=== PATIENT | female | born 1965 | race Caucasian/White ===

== ENCOUNTER 2018-09-25 07:41 | Emergency (ER) | payer BC, OTHER ==
[~2018-09-25] VITALS: Ht 157.5 cm; Wt 86.2 kg
--- OUTSIDE RECORDS SUMMARY | 2018-09-25 07:47 | XMS REPORT | Clinical Summary ---
Author Author Admin, E Organization [facility] Address Unknown Phone Unavailable Allergies, Adverse Reactions, Alerts Allergy Name Reaction Description Start Date Severity Status Provider ADHESIVE PAPER Critical Active Kadie Sehorn LEVAQUIN Critical Active Kaide Sehorn DEMEROL Critical Active Kadie Sehorn SULFA Critical Active Kadie Sehorn IODINE Critical Active Kadie Sehorn PENICILLIN Critical Active Kadie Sehorn Conditions or Problems Problem Name Problem Code Onset Date Status Entry Date Provider Comment Standard Description Annotate URETHRAL STENOSIS, MEATAL 598.9 Active Misael Rachel MD Urethral stricture, unspecified INCOMPLETE BLADDER EMPTYING 788.21 Active Misael Rachel MD Incomplete bladder emptying BLADDER PROLAPSE 596.9 Active Misael Rachel MD Unspecified disorder of bladder DYSURIA 788.1 Active Misael Rachel MD Dysuria HEMATURIA 599.70 Active Misael Rachel MD Hematuria, unspecified URETHRAL STENOSIS, MEATAL 598.9 Active Misael Rachel MD Urethral stricture, unspecified Medication List Medication Instructions Start Date Stop Date Generic Name NDC Status Provider Patient Instruction UNITHROID 75 MCG ORAL TABS 1/2 tab daily LEVOTHYROXINE SODIUM 03590177459 Active Misael Rachel MD Active MACROBID 100 MG ORAL CAPS 1 tab BID NITROFURANTOIN MONOHYD MACRO 88008419960 Active Misael Rachel MD Active ESTRACE 0.1 MG/GM CREA use as directed ESTRADIOL 32237975100 No Longer Active Misael Rachel MD Active PYRIDIUM 200 MG TAB 1 tablet every 8 hours as needed PHENAZOPYRIDINE HCL 44682804078 No Longer Active Misael Rachel MD Active ALPRAZOLAM 1 MG TABS 1/2 tab bid ALPRAZOLAM 61600389348 No Longer Active Misael Rachel MD Active PROPRANOLOL HCL 10 MG TABS bid PROPRANOLOL HCL 88102013722 Active Kadie Valadez Active ALPRAZOLAM 1 MG TABS 1/2 tab bid ALPRAZOLAM 1 MG TABS 810733 ALPRAZOLAM Inactive PYRIDIUM 200 MG TAB 1 tablet every 8 hours as needed PYRIDIUM 200 MG TAB 9652520 PHENAZOPYRIDINE HCL Inactive ESTRACE 0.1 MG/GM CREA use as directed ESTRACE 0.1 MG/GM CREA ESTRADIOL Inactive Advance Directives Directive Description Start Date PERMISSION TO SHARE Vital Signs Date Name Value Unit Range Description blood pressure, diastolic 60 mm[Hg] BP dal[place] blood pressure, systolic 130 mm[Hg] BP sys pulse rate E&M 72 /min Heart rate temperature E&M 99.5 [degF] Body temperature weight E&M 177 [lb_av] Weight Measured blood pressure, diastolic 80 mm[Hg] BP [place] blood pressure, systolic 110 mm[Hg] BP sys pulse rate E&M 85 /min Heart rate temperature E&M 99.2 [degF] Body temperature weight E&M 173 [lb_av] Weight Measured Diagnostic Results Date Name Value Unit Range Description Office Visit: Follow up urethral stenosis - Chemistry RBC, urine, dipstick negative protein, total urine random negative mg/dL Office Visit: Follow up urethral stenosis - Urinalysis pH, urine, semiquantitative 5 specific gravity, urine 1.005 urinalysis, routine Clean Catch culture status No ketones, urine, by test strip negative bilirubin, urine negative glucose, urine, semiquantitative negative urine color yellow appearance, urine clear leukocyte esterase, urine, by dipstick negative nitrite, urine, semiquantitative negative urobilinogen, urine, semiquantitative (dipstick) negative protein, urine, semiquantitative (dipstick) negative Encounters Code Encounter Date Provider Facility CPT-17449 Level 3 Est. Patient 13:33:05 CDT Misael Rachel MD [facility] CPT-89680 Level 3 Est. Patient 16:26:05 CDT Misael Rachel MD [facility] [place] CPT-37606 Level 3 Est. Patient 10:48:22 CDT Misael Rachel MD [facility] CPT-04205 Level 3 Est. Patient 15:30:36 CDT Misael Rachel MD 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
--- OUTSIDE RECORDS SUMMARY | 2018-09-25 07:47 | XMS REPORT | Clinical Summary ---
Author Author Admin, E Organization [facility] Address Unknown Phone Unavailable Allergies, Adverse Reactions, Alerts Allergy Name Reaction Description Start Date Severity Status Provider ADHESIVE PAPER Critical Active Kadie Sehorn LEVAQUIN Critical Active Kadie Sehorn DEMEROL Critical Active Kadie Sehorn SULFA [...] ORAL TABS 1/2 tab daily LEVOTHYROXINE SODIUM 14428468027 Active Misael Rachel MD Active MACROBID 100 MG ORAL CAPS 1 tab BID NITROFURANTOIN MONOHYD MACRO 98932419511 Active Misael Rachel MD Active ESTRACE 0.1 MG/GM CREA use as directed ESTRADIOL 41921141912 No Longer Active Misael Rachel MD Active PYRIDIUM 200 MG TAB 1 tablet every 8 hours as needed PHENAZOPYRIDINE HCL 35877072697 No Longer Active Misael Rachel MD Active ALPRAZOLAM 1 MG TABS 1/2 tab bid ALPRAZOLAM 95152042890 No Longer Active Misael Rachel MD Active PROPRANOLOL HCL 10 MG TABS bid PROPRANOLOL HCL 17774337125 Active Kadie Valadez Active ALPRAZOLAM 1 MG TABS 1/2 tab bid ALPRAZOLAM 1 MG TABS 424775 ALPRAZOLAM Inactive PYRIDIUM 200 MG TAB 1 tablet every 8 hours as needed PYRIDIUM 200 MG TAB 2608470 PHENAZOPYRIDINE HCL Inactive ESTRACE 0.1 MG/GM CREA [...] negative Encounters Code Encounter Date Provider Facility CPT-24669 Level 3 Est. Patient 13:33:05 CDT Misael Rachel MD [facility] CPT-04881 Level 3 Est. Patient 16:26:05 CDT Misael Rachel MD [facility] [place] CPT-77652 Level 3 Est. Patient 10:48:22 CDT Misael Rachel MD [facility] CPT-10101 Level 3 Est. 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
--- OUTSIDE RECORDS SUMMARY | 2018-09-25 07:47 | XMS REPORT | Clinical Summary ---
Author Author Admin, DAVID Organization [facility] Address Unknown Phone Unavailable Allergies, Adverse Reactions, [...] Generic Name NDC Status Provider Patient Instruction ESTRACE 0.1 MG/GM CREA use as directed ESTRADIOL 44882685481 No Longer Active Misael Rachel MD Active PYRIDIUM 200 MG TAB 1 tablet every 8 hours as needed PHENAZOPYRIDINE HCL 70428418302 No Longer Active Misael Rachel MD Active ALPRAZOLAM 1 MG TABS 1/2 tab bid ALPRAZOLAM 75437580231 No Longer Active Misael Rachel MD Active PROPRANOLOL HCL 10 MG TABS bid PROPRANOLOL HCL 49374282439 Active Kadie Mejiajuanita Active ALPRAZOLAM 1 MG TABS 1/2 tab bid ALPRAZOLAM 1 MG TABS 712393 ALPRAZOLAM Inactive PYRIDIUM 200 MG TAB 1 tablet every 8 hours as needed PYRIDIUM 200 MG TAB 9651173 PHENAZOPYRIDINE HCL Inactive ESTRACE 0.1 MG/GM CREA use as directed ESTRACE 0.1 MG/GM CREA ESTRADIOL Inactive Advance Directives Directive Description Start Date PERMISSION TO SHARE Vital Signs Date Name Value Unit Range Description blood pressure, diastolic - 8462-4 80 mm[Hg] BP dal[place] blood pressure, systolic - 8480-6 110 mm[Hg] BP sys pulse rate E&M - 8867-4 85 /min Heart rate temperature E&M 99.2 [degF] Body temperature weight E&M - 3141-9 173 [lb_av] Weight Measured Diagnostic Results Date [...] negative Encounters Code Encounter Date Provider Facility CPT-55913 Level 3 Est. Patient 16:26:05 CDT Misael Rachel MD [facility] [place] CPT-51301 Level 3 Est. Patient 10:48:22 CDT Misael Rachel MD [facility] CPT-60143 Level 3 Est. 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
--- OUTSIDE RECORDS SUMMARY | 2018-09-25 07:47 | XMS REPORT | Clinical Summary ---
Author Author Admin, E Organization [facility] Address Unknown Phone Unavailable Allergies, Adverse [...] ORAL TABS 1/2 tab daily LEVOTHYROXINE SODIUM 51513691455 Active Misael Rachel MD Active MACROBID 100 MG ORAL CAPS 1 tab BID NITROFURANTOIN MONOHYD MACRO 81009278794 Active Misael Rachel MD Active ESTRACE 0.1 MG/GM CREA use as directed ESTRADIOL 45802680116 No Longer Active Misael Rachel MD Active PYRIDIUM 200 MG TAB 1 tablet every 8 hours as needed PHENAZOPYRIDINE HCL 87373942021 No Longer Active Misael Rachel MD Active ALPRAZOLAM 1 MG TABS 1/2 tab bid ALPRAZOLAM 47105360851 No Longer Active Misael Rachel MD Active PROPRANOLOL HCL 10 MG TABS bid PROPRANOLOL HCL 06898195329 Active Kadie Valadez Active ALPRAZOLAM 1 MG TABS 1/2 tab bid ALPRAZOLAM 1 MG TABS 857666 ALPRAZOLAM Inactive PYRIDIUM 200 MG TAB 1 tablet every 8 hours as needed PYRIDIUM 200 MG TAB 2164500 PHENAZOPYRIDINE HCL Inactive ESTRACE 0.1 MG/GM CREA [...] negative Encounters Code Encounter Date Provider Facility CPT-27802 Level 3 Est. Patient 13:33:05 CDT Misael Rachel MD [facility] CPT-09879 Level 3 Est. Patient 16:26:05 CDT Misael Rachel MD [facility] [place] CPT-59150 Level 3 Est. Patient 10:48:22 CDT Misael Rachel MD [facility] CPT-88407 Level 3 Est. 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
--- OUTSIDE RECORDS SUMMARY | 2018-09-25 07:48 | XMS REPORT | Clinical Summary ---
Author Author Admin, DAVID [facility] Address Unknown Phone Unavailable Allergies, Adverse [...] Generic Name NDC Status Provider Patient Instruction ALPRAZOLAM 1 MG TABS 1/2 tab bid ALPRAZOLAM 73271049709 Active Kadie horn Active PROPRANOLOL HCL 10 MG TABS bid PROPRANOLOL HCL 56864436668 Active Kadie Sehorn Active PYRIDIUM 200 MG TAB 1 tablet every 8 hours as needed PHENAZOPYRIDINE HCL 28301976472 Active [place]ia MCNAIR Active ESTRACE 0.1 MG/GM CREA use as directed [facility] 13765067988 Active Gardenia Monteiro [facility] Active Advance Directives Directive Description Start Date PERMISSION TO SHARE Vital Signs Date Name Value Unit Range Description blood pressure, diastolic 63 mm[Hg] BP dal[place] blood pressure, systolic 107 mm[Hg] BP sys temperature E&M 98.7 [degF] Body temperature weight E&M 165 [lb_av] Weight Measured Encounters Code Encounter Date Provider Facility CPT-52503 Level 3 Est. Patient 10:48:22 CDT Misael Rachel MD [facility] CPT-05603 Level 3 Est. 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
--- OUTSIDE RECORDS SUMMARY | 2018-09-25 07:48 | XMS REPORT | Clinical Summary ---
Author Author Admin, DAVID Organization [facility] Address Unknown Phone Unavailable Allergies, Adverse Reactions, Alerts Allergy Name Reaction Description Start Date Severity Status Provider ADHESIVE PAPER Critical Active Kadie Sehorn LEVAQUIN Critical Active Kdaie Sehorn DEMEROL Critical Active Kadie Sehorn SULFA [...] ORAL TABS 1/2 tab daily LEVOTHYROXINE SODIUM 14917430998 Active Misael Rachel MD Active MACROBID 100 MG ORAL CAPS 1 tab BID NITROFURANTOIN MONOHYD MACRO 59469374823 Active Misael Rachel MD Active ESTRACE 0.1 MG/GM CREA use as directed ESTRADIOL 49356696927 No Longer Active Misael Rachel MD Active PYRIDIUM 200 MG TAB 1 tablet every 8 hours as needed PHENAZOPYRIDINE HCL 58203785874 No Longer Active Misael Rachel MD Active ALPRAZOLAM 1 MG TABS 1/2 tab bid ALPRAZOLAM 89464986841 No Longer Active Misael Rachel MD Active PROPRANOLOL HCL 10 MG TABS bid PROPRANOLOL HCL 47329768105 Active Kadie Valadez Active ALPRAZOLAM 1 MG TABS 1/2 tab bid ALPRAZOLAM 1 MG TABS 889074 ALPRAZOLAM Inactive PYRIDIUM 200 MG TAB 1 tablet every 8 hours as needed PYRIDIUM 200 MG TAB 7210171 PHENAZOPYRIDINE HCL Inactive ESTRACE 0.1 MG/GM CREA [...] negative Encounters Code Encounter Date Provider Facility CPT-94404 Level 3 Est. Patient 13:33:05 CDT Misael Rachel MD [facility] CPT-91972 Level 3 Est. Patient 16:26:05 CDT Misael Rachel MD [facility] [place] CPT-96519 Level 3 Est. Patient 10:48:22 CDT Misael Rachel MD [facility] CPT-41791 Level 3 Est. Patient 15:30:36 CDT Misael Rachel MD 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 Procedures Code Procedure Name Date Entry Date Standard Description CPT-41734 Dil F ureth int 13:33:05 CDT CPT-27046 Bladder Scan 13:33:05 CDT CPT-44120 Dil F ureth int 16:26:05 CDT CPT-26848 Bladder Scan 15:30:36 CDT CPT-56384 Dil F ureth int 15:30:36 CDT CPT-48416 Dil F ureth int 08:11:50 MEAT DRESSER CPT-25214 Bladder Scan 08:11:50 MEAT DRESSER
--- OUTSIDE RECORDS SUMMARY | 2018-09-25 07:48 | XMS REPORT | Clinical Summary ---
Author Author Admin, E Organization [facility] Address Unknown Phone Unavailable Allergies, Adverse Reactions, [...] ORAL TABS 1/2 tab daily LEVOTHYROXINE SODIUM 08267346846 Active Misael Rachel MD Active MACROBID 100 MG ORAL CAPS 1 tab BID NITROFURANTOIN MONOHYD MACRO 45056684853 Active Misael Rachel MD Active ESTRACE 0.1 MG/GM CREA use as directed ESTRADIOL 81341281228 No Longer Active Misael Rachel MD Active PYRIDIUM 200 MG TAB 1 tablet every 8 hours as needed PHENAZOPYRIDINE HCL 00507387558 No Longer Active Misael Rachel MD Active ALPRAZOLAM 1 MG TABS 1/2 tab bid ALPRAZOLAM 24634112243 No Longer Active Misael Rachel MD Active PROPRANOLOL HCL 10 MG TABS bid PROPRANOLOL HCL 28905659758 Active Kadie Valadez Active ALPRAZOLAM 1 MG TABS 1/2 tab bid ALPRAZOLAM 1 MG TABS 810976 ALPRAZOLAM Inactive PYRIDIUM 200 MG TAB 1 tablet every 8 hours as needed PYRIDIUM 200 MG TAB 7741015 PHENAZOPYRIDINE HCL Inactive ESTRACE 0.1 MG/GM CREA [...] negative Encounters Code Encounter Date Provider Facility CPT-68425 Level 3 Est. Patient 13:33:05 CDT Misael Rachel MD [facility] CPT-08267 Level 3 Est. Patient 16:26:05 CDT Misael Rachel MD [facility] [place] CPT-36839 Level 3 Est. Patient 10:48:22 CDT Misael Rachel MD [facility] CPT-17331 Level 3 Est. 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
--- OUTSIDE RECORDS SUMMARY | 2018-09-25 07:48 | XMS REPORT | Continuity of Care Document ---
Author Organization Unknown Address Unknown Allergies There is no data. Medications There is no data. Problems There is no data. Procedures There is no data. Results Test Result Range TSH - 07/26/18 11:15 TSH 1.65 mIU/L NRG CULTURE, THROAT - 08/08/18 17:19 CULTURE, THROAT SEE NOTE NRG Encounters ACCT No. Visit Date/Time Discharge Status Pt. Type Provider Facility Loc./Unit Complaint [id number] 05/10/2018 19:41:00 [facility] Unknown [id number] 08/08/2018 16:40:00 08/08/2018 23:59:59 [facility] Outpatient [facility], [place] [facility] [id number] 08/08/2018 16:40:00 Document Registration [id number] 07/26/2018 11:00:00 Document Registration
[2018-09-25] MEDS ORDERED: ASPIRIN 81 MG CHEW (CHILDREN'S ASA) ONE (08:01)
[2018-09-25 08:19] LABS: BASOPHILS % (AUTO) 0 % (0-10); EOSINOPHILS # (AUTO) 0.4 10^3/uL (0.0-0.3); EOSINOPHILS % (AUTO) 5 % (0-10); HEMATOCRIT 46 % (35-52); HEMOGLOBIN 15.6 G/DL (11.5-16.0); LYMPHOCYTES # (AUTO) 2.1 X 10^3 (1.0-4.0); LYMPHOCYTES % (AUTO) 26 % (12-44); MEAN CORPUSCULAR HEMOGLOBIN 31 PG (25-34); MEAN CORPUSCULAR HGB CONC 34 G/DL (32-36); MEAN CORPUSCULAR VOLUME 91 FL (80-99); MEAN PLATELET VOLUME 11.4 FL (7.4-10.4); MONOCYTES # (AUTO) 0.7 X 10^3 (0.0-1.0); MONOCYTES % (AUTO) 8 % (0-12); NEUTROPHILS # (AUTO) 4.7 X 10^3 (1.8-7.8); NEUTROPHILS % (AUTO) 60 % (42-75); PLATELET COUNT 257 10^3/uL (130-400); RED CELL DISTRIBUTION WIDTH 12.5 % (10.0-14.5); WHITE BLOOD COUNT 7.9 10^3/uL (4.3-11.0)
[2018-09-25 08:26] LABS: PROTHROMBIN TIME PATIENT 13.3 SEC (12.2-14.7)
[2018-09-25] MEDS ORDERED: morphine INJ 10 MG/ML 1ML (SYR OR VIAL) IVP STA (08:27)
[2018-09-25] MEDS ORDERED: ALPR1TAB7 (08:29)
[2018-09-25] MEDS ORDERED: LEVO75TA6 (08:29)
[2018-09-25] MEDS ORDERED: PROP10TA8 (08:29)
[2018-09-25] MEDS ORDERED: ASPIRIN 81 MG CHEW (CHILDREN'S ASA) PO ONE (08:30)
--- NOTE | 2018-09-25 08:31 | ED Chest Pain ---
General Chief Complaint: Chest Pain Stated Complaint: CHEST PAIN;NAUSEA Nursing Triage Note: C/O CHEST PAIN SINCE 0130 LAST NIGHT WITH NAUSEA Nursing Sepsis Screen: No Definite Risk Source: patient, spouse Exam Limitations: no limitations History of Present Illness Date Seen by Provider: September 25, 2018 Time Seen by Provider: 07:50 Initial Comments The patient presents to ER by private conveyance with chief complaint of chest pain waking her from sleep 1:30 AM feeling like a lightning strike starting in her left chest radiating across her chest and into her back. Both of her arms are involved. Nothing in the neck. No personal history of coronary artery disease but she has a family history of a brother who of a heart attack 52 years old and her father had heart disease at age 59. Pain is not gone away she's having nausea with no vomiting. She denies smoking or diabetes but has hypothyroidism, no cholesterol problems and takes propranolol for sinus tachycardia/blood pressure. He says that the symptoms are similar to symptoms she's had the past with her fibromyalgia and that's why she did not come in initially but when she got up this morning and started having nausea she became more concerned. Allergies and Home Medications Allergies Coded Allergies: Penicillins (Verified Allergy, Severe, anaphylaxis, 09/25/18) Sulfa (Sulfonamide Antibiotics) (Verified Allergy, Severe, anaphylaxis, 09/25/18) iodine (Verified Allergy, Severe, anaphylaxis, 09/25/18) levofloxacin (Verified Allergy, Mild, hives, 09/25/18) meperidine (Verified Allergy, Mild, hives, 09/25/18) methylprednisolone (Verified Allergy, Unknown, 09/25/18) povidone-iodine (Verified Allergy, Unknown, 09/25/18) soap (Verified Allergy, Unknown, 09/25/18) Uncoded Allergies: TAPE (Adverse Reaction, Unknown, 09/25/18) Patient Home Medication List Home Medication List Reviewed: Yes Review of Systems Review of Systems Constitutional: No chills, No fever, No malaise EENTM: No Blurred Vision, No Double Vision Respiratory: Denies Cough, Denies Shortness of Air Cardiovascular: See HPI, Chest Pain; Denies Edema, Denies Irregular Heart Rate, Denies Palpitations, Denies Syncope Gastrointestinal: Denies Abdomen Distended, Denies Abdominal Pain; Nausea Genitourinary: Denies Burning, Denies Discharge Musculoskeletal: No back pain, No joint pain Skin: No pruritus, No rash Psychiatric/Neurological: Denies Headache, Denies Numbness Past Zaocobu-Xggbqg-Qxyjjm Hx Patient Social History Alcohol Use: Denies Use Recreational Drug Use: No Smoking Status: Never a Smoker 2nd Hand Smoke Exposure: No Recent Foreign Travel: No Contact w/Someone Who Travel: No Recent Infectious Disease Expo: No Recent Hopitalizations: No Seasonal Allergies Seasonal Allergies: No Past Medical History Surgeries: Yes ("kidney stone") Gallbladder, Lumpectomy Respiratory: No Cardiac: Yes ("sinus tachacaria rate in 200s) : No Genitourinary: Yes Kidney Stones Gastrointestinal: No Musculoskeletal: Yes Fibromyalgia Endocrine: Yes Hypothyroidsim HEENT: No Cancer: No Psychosocial: Yes Anxiety Blood Disorders: No Physical Exam Vital Signs Vital Signs - First Documented 09/25/18 07:45 Temp 98.8 Pulse 88 Resp 24 B/P (MAP) 133/92 (106) Pulse Ox 95 O2 Delivery Room Air Capillary Refill : Less Than 3 Seconds Height, Weight, BMI Height: 5'2.00" Weight: 190lbs. oz. 86.658738by; BMI Method:Stated General Appearance: No Apparent Distress (smiling, cordial), WD/WN HEENT: PERRL/EOMI, Pharynx Normal, Moist Mucous Membranes Respiratory: Chest Non Tender, Lungs Clear, Normal Breath Sounds, No Accessory Muscle Use, No Respiratory Distress Cardiovascular: Regular Rate, Rhythm, Normal Peripheral Pulses Gastrointestinal: Normal Bowel Sounds, Non Tender, Soft Extremity: Normal Capillary Refill, Normal Inspection, No Pedal Edema Neurologic/Psychiatric: Alert, Oriented x3, No Motor/Sensory Deficits Skin: Normal Color, Warm/Dry Progress/Results/Core Measures Results/Orders Lab Results Laboratory Tests Test 09/25/18 07:48 09/25/18 10:20 Range/Units White Blood Count 7.9 4.3-11.0 10^3/uL Red Blood Count 4.98 4.35-5.85 10^6/uL Hemoglobin 15.6 11.5-16.0 G/DL Hematocrit 46 35-52 % Mean Corpuscular Volume 91 80-99 FL Mean Corpuscular Hemoglobin 31 25-34 PG Mean Corpuscular Hemoglobin Concent 34 32-36 G/DL Red Cell Distribution Width 12.5 10.0-14.5 % Platelet Count 257 130-400 10^3/uL Mean Platelet Volume 11.4 H 7.4-10.4 FL Neutrophils (%) (Auto) 60 42-75 % Lymphocytes (%) (Auto) 26 12-44 % Monocytes (%) (Auto) 8 0-12 % Eosinophils (%) (Auto) 5 0-10 % Basophils (%) (Auto) 0 0-10 % Neutrophils # (Auto) 4.7 1.8-7.8 X 10^3 Lymphocytes # (Auto) 2.1 1.0-4.0 X 10^3 Monocytes # (Auto) 0.7 0.0-1.0 X 10^3 Eosinophils # (Auto) 0.4 H 0.0-0.3 10^3/uL Basophils # (Auto) 0.0 0.0-0.1 10^3/uL Prothrombin Time 13.3 12.2-14.7 SEC INR Comment 1.0 0.8-1.4 Activated Partial Thromboplast Time 29 24-35 SEC Sodium Level 139 135-145 MMOL/L Potassium Level 4.3 3.6-5.0 MMOL/L Chloride Level 105 98-107 MMOL/L Carbon Dioxide Level 22 21-32 MMOL/L Anion Gap 12 5-14 MMOL/L Blood Urea Nitrogen 12 7-18 MG/DL Creatinine 0.84 0.60-1.30 MG/DL Estimat Glomerular Filtration Rate > 60 BUN/Creatinine Ratio 14 Glucose Level 112 H 70-105 MG/DL Calcium Level 9.7 8.5-10.1 MG/DL Corrected Calcium 9.5 8.5-10.1 MG/DL Magnesium Level 2.3 1.8-2.4 MG/DL Total Bilirubin 0.5 0.1-1.0 MG/DL Aspartate Amino Transf (AST/SGOT) 60 H 5-34 U/L Alanine Aminotransferase (ALT/SGPT) 99 H 0-55 U/L Alkaline Phosphatase 88 40-136 U/L Myoglobin 31.8 10.0-92.0 NG/ML Troponin I < 0.028 < 0.028 <0.028 NG/ML B-Type Natriuretic Peptide < 10.0 <100.0 PG/ML Total Protein 7.8 6.4-8.2 GM/DL Albumin 4.3 3.2-4.5 GM/DL Lipase 178 H 8-78 U/L My Orders Orders - ISACGORDON J Ekg Tracing (09/25/18 07:44) Aspirin Chewable Tablet (Baby Aspirin Ch (09/25/18 08:01) Cbc With Automated Diff (09/25/18 08:02) Magnesium (09/25/18 08:02) Chest 1 View, Ap/Pa Only (09/25/18 08:02) Cardiac Profile 1 (09/25/18 08:02) Comprehensive Metabolic Panel (09/25/18 08:02) Myoglobin Serum (09/25/18 08:02) Protime With Inr (09/25/18 08:02) Partial Thromboplastin Time (09/25/18 08:02) O2 (09/25/18 08:02) Monitor-Rhythm Ecg Trace Only (09/25/18 08:02) Lipid Panel (09/26/18 06:00) Ed Iv/Invasive Line Start (09/25/18 08:02) Lipase (09/25/18 08:02) BNP (09/25/18 08:02) Aspirin Chewable Tablet (Baby Aspirin Ch (09/25/18 08:30) Morphine Injection (Morphine Injection (09/25/18 08:27) Lidocaine 2% Viscous 15 Ml (Xylocaine Vi (09/25/18 09:30) Famotidine Tablet (Pepcid Tablet) (09/25/18 09:16) Antacid Suspension (Mylanta Suspension (09/25/18 09:30) Ekg Tracing (09/25/18 10:00) Troponin I (09/25/18 10:00) Ketorolac Injection (Toradol Injection) (09/25/18 10:15) Medications Given in ED Current Medications Medications Dose Ordered Sig/Blayne Route Start Time Stop Time Status Last Admin Dose Admin Al Hydrox/Mg Hydrox/Simethicone 30 ml ONCE ONCE PO 09/25/18 09:30 09/25/18 09:31 DC 09/25/18 09:25 30 ML Aspirin 324 mg ONCE ONCE PO 09/25/18 08:30 09/25/18 08:31 DC 09/25/18 08:10 324 MG Ketorolac Tromethamine 30 mg ONCE ONCE IVP 09/25/18 10:15 09/25/18 10:16 DC 09/25/18 10:17 30 MG Lidocaine HCl 15 ml ONCE ONCE PO 09/25/18 09:30 09/25/18 09:31 DC 09/25/18 09:25 15 ML Vital Signs/I&O 09/25/18 09/25/18 07:45 07:45 Temp 98.8 Pulse 88 Resp 24 B/P (MAP) 133/92 (106) Pulse Ox 95 O2 Delivery Room Air Blood Pressure Mean: 106 Progress Progress Note : Time: 09:18 Progress Note Mild elevation of the lipase, no tenderness in the epigastric region. She's refused nitroglycerin and morphine. We will try a GI cocktail. Initial EKG and troponin are negative. Repeat troponin and EKG at 10:00. ED ACS 11 points. Low risk by the EDACS Score. If the patient also has: (1) EKG without new ischemic changes and (2) negative initial and 2-hour troponins, then this patient is safe for discharge to early outpatient follow-up investigation (or proceed to earlier inpatient testing). If EKG with ischemic changes or positive troponin, they are not low risk and require normal risk stratification. Initial ECG Impression Date: September 25, 2018 Initial ECG Impression Time: 07:49 Initial ECG Rate: 90 Initial ECG Rhythm: Normal Sinus Initial ECG Intervals: Normal Initial ECG Impression: Normal Initial ECG Comparisson: Unchanged Comment No ST elevation or depression. Diagnostic Imaging Diagonstic Imaging: Xray Plain Films/CT/US/NM/MRI: chest (1v) Comments [facility], [place] NAME: JUD MANSFIELD I [facility] REC#: [id number] PT STATUS: REG ER : 1965 PHYSICIAN: GORDON CHAU MD ADMIT DATE: 09/25/18/ER Draft Date of Exam:09/25/18 CHEST 1 VIEW, AP/PA ONLY Indication: Chest pain Frontal chest obtained at 844 hours a.m. Heart and mediastinal silhouette are normal in appearance. The lungs are clear. There is no pneumothorax or pleural fluid. Impression: Negative chest. Dictated on workstation # [id number] Dict: 09/25/18 0854 Trans: 09/25/18 0855 [facility] [place] [id number] Interpreted by: EREN TAYLOR MD Electronically signed by: Reviewed: Reviewed by Me Departure Impression Primary Impression: Chest pain Qualified Codes: R07.9 - Chest pain, unspecified Disposition: 01 HOME, SELF-CARE Condition: Stable Departure-Patient Inst. Decision time for Depature: 11:59 Referrals: SHIMA DAVIS MD Patient Instructions: Chest Pain That Is Not Caused by the Heart (DC) Add. Discharge Instructions: Please follow-up today by calling Dr. Davis, cardiology and requesting an appointment. You may also follow-up with the quality assurance supervisor final of your choice if you are already established. Please return to the ER if you begin to have intractable pain, shortness of breath or other worrisome symptoms. All discharge instructions reviewed with patient and/or family. Voiced understanding. Copy Copies To 1: SHIMA DAVIS MD, TITUS J September 25, 2018 08:31
[2018-09-25 08:32] LABS: ALANINE AMINOTRANSFERASE 99 U/L (0-55); ALBUMIN 4.3 GM/DL (3.2-4.5); ALKALINE PHOSPHATASE 88 U/L (40-136); BILIRUBIN,TOTAL 0.5 MG/DL (0.1-1.0); BUN/CREATININE RATIO 14; CALCIUM 9.7 MG/DL (8.5-10.1); CARBON DIOXIDE 22 MMOL/L (21-32); CHLORIDE 105 MMOL/L (98-107); CREATININE SERUM 0.84 MG/DL (0.60-1.30); GFR ESTIMATED > 60; GLUCOSE 112 MG/DL (70-105); LIPASE 178 U/L (8-78); MAGNESIUM 2.3 MG/DL (1.8-2.4); POTASSIUM 4.3 MMOL/L (3.6-5.0); SODIUM 139 MMOL/L (135-145); TOTAL PROTEIN 7.8 GM/DL (6.4-8.2)
--- NOTE | 2018-09-25 08:56 | Diagnostic Imaging Report ---
Indication: Chest pain Frontal chest obtained at 844 hours a.m. Heart and mediastinal silhouette are normal in appearance. The lungs are clear. There is no pneumothorax or pleural fluid. Impression: Negative chest. Dictated by: Dictated on workstation # [id number]
[2018-09-25] MEDS ORDERED: FAMOTIDINE 20 MG (PEPCID) TABLET PO STA (09:16)
[2018-09-25] MEDS ORDERED: LIDOCAINE 2% VISCOUS 15 ML UDC PO ONE (09:30)
[2018-09-25] MEDS ORDERED: ANTACID SUSP 30 ML UDC (MYLANTA) PO ONE (09:30)
[2018-09-25] MEDS ORDERED: KETOROLAC 30 MG/ML VIAL IVP ONE (10:15)
--- NOTE | 2018-09-25 11:30 | NUR ---
NOTIFIED OF EVERYTHING BEING BACK ET DR WOULD BE IN SOON HE COULD.
[2018-09-25 12:10] VITALS: BP 131/75
== END 2018-09-25 12:08 | disposition home or self-care (01) ==
LOC: EDUNIT# 07:41 → ER 07:43
DX: R07.9 Chest pain, unspecified (principal); E03.9 Hypothyroidism, unspecified; M79.7 Fibromyalgia; F41.9 Anxiety disorder, unspecified; Z88.0 Allergy status to penicillin; Z88.2 Allergy status to sulfonamides; Z91.041 Radiographic dye allergy status; Z88.5 Allergy status to narcotic agent; Z88.8 Allergy status to other drugs, medicaments and biological substances; Z87.442 Personal history of urinary calculi
CPT/HCPCS: 36415; 71045; 80053; 83690; 83735; 83874; 83880; 84484; 85025; 85610; 85730; 93005; 93041

== ENCOUNTER → 2019-03-17 | Outpatient (CLI) | payer BC ==
[~2019-03-17] MED LIST: ALPR1TAB7; LEVO75TA6; PROP10TA8
--- NOTE | 2019-03-17 16:11 | Diagnostic Imaging Report ---
Indication: Bronchospasm PA and lateral chest Heart size and pulmonary vascularity are normal. Lungs are clear. There are no effusions or pneumothoraces. IMPRESSION: Negative chest Dictated by: Dictated on workstation # [id number]
== END ==
LOC: RAD FS 15:57
PROVIDERS: ATTEND Nurse Practitioner Family
DX: J98.01 Acute bronchospasm (principal)
CPT/HCPCS: 71046

== ENCOUNTER → 2019-05-19 | Outpatient (CLI) | payer BC ==
--- NOTE | 2019-05-19 13:45 | Diagnostic Imaging Report ---
PROCEDURE: CT chest without contrast. TECHNIQUE: Multiple contiguous axial images were obtained through the chest without the use of intravenous contrast. Auto Exposure Controls were utilized during the CT exam to meet ALARA standards for radiation dose reduction. INDICATION: Pain in the left scapula that radiates to the left ribs. COMPARISON: No prior CT chest studies are available for comparison. FINDINGS: No axillary lymphadenopathy is detected. No definite mediastinal or hilar lymphadenopathy is detected. No pericardial or pleural fluid is identified. The central airways are patent. Subpleural 4 mm micronodule in the left upper lobe is noted, image 43. Remainder of the lung yan are clear. No infiltrates are detected. Evaluation of the bony structures does show a healing fracture involving the left lateral sixth rib. There is some callus formation present. Fracture line does remain partly visible. No other rib fractures are seen. The scapula appears to be intact. Spine demonstrates multilevel degenerative change but no acute fracture. The upper abdomen does demonstrate diffuse low density throughout the liver consistent with hepatic steatosis. The gallbladder is surgically absent. IMPRESSION: 1. Healing left lateral sixth rib fracture. 2. Hepatic steatosis. 3. No other significant abnormality is detected. Dictated by: Dictated on workstation # [id number]
== END ==
LOC: RAD FS 13:12
PROVIDERS: ATTEND Nurse Practitioner Family
DX: S22.32XD Fracture of one rib, left side, subsequent encounter for fracture with routine healing (principal); K76.0 Fatty (change of) liver, not elsewhere classified; X58.XXXD Exposure to other specified factors, subsequent encounter
CPT/HCPCS: 71250

== ENCOUNTER → 2020-01-27 | Outpatient (CLI) | payer BC ==
--- NOTE | 2020-01-27 10:03 | Diagnostic Imaging Report ---
HISTORY: History of left-sided broken rib with persistent pain. COMPARISON: 03/17/2019 TECHNIQUE: 2 views of the left ribs. FINDINGS: No displaced rib fractures are seen. The previously seen healing left 6th rib fracture is not evident radiographically. No new fractures are seen. The left lung is clear. IMPRESSION: 1. No acute displaced left rib fractures are seen. Dictated by: Dictated on workstation # [id number]
== END ==
LOC: RAD FS 09:02
PROVIDERS: ATTEND Nurse Practitioner Family
DX: R07.89 Other chest pain (principal); R07.81 Pleurodynia; Z87.81 Personal history of (healed) traumatic fracture
CPT/HCPCS: 71100

== ENCOUNTER 2020-08-06 14:07 | Emergency (ER) | payer BC ==
[~2020-08-06] VITALS: Ht 157.4 cm; Wt 90.0 kg
[2020-08-06] MEDS ORDERED: LACTATED RINGERS 1,000 ML IV STA (14:40)
[2020-08-06 14:49] LABS: HEMATOCRIT 43 % (35-52); HEMOGLOBIN 14.8 G/DL (11.5-16.0); LYMPHOCYTES % (AUTO) 21 % (12-44); MEAN CORPUSCULAR HEMOGLOBIN 32 PG (25-34); MEAN CORPUSCULAR HGB CONC 34 G/DL (32-36); MEAN CORPUSCULAR VOLUME 93 FL (80-99); MEAN PLATELET VOLUME 10.6 FL (7.4-10.4); MONOCYTES % (AUTO) 9 % (0-12); NEUTROPHILS % (AUTO) 69 % (42-75); PLATELET COUNT 164 10^3/uL (130-400); WHITE BLOOD COUNT 4.9 10^3/uL (4.3-11.0)
[2020-08-06 14:50] LABS: BASOPHILS % (AUTO) 0 % (0-10); EOSINOPHILS % (AUTO) 1 % (0-10); MONOCYTES # (AUTO) 0.4 X 10^3 (0.0-1.0); NEUTROPHILS # (AUTO) 3.4 X 10^3 (1.8-7.8)
[2020-08-06 14:57] LABS: CLARITY,URINE CLOUDY; COLOR,URINE YELLOW; GLUCOSE, URINE (UA) NEGATIVE (NEGATIVE); PROTEIN,URINE NEGATIVE (NEGATIVE)
[2020-08-06 14:58] LABS: BACTERIA,URINE TRACE /HPF; BILIRUBIN,URINE NEGATIVE (NEGATIVE); KETONES,URINE NEGATIVE (NEGATIVE); LEUKOCYTE ESTERASE ,URINE 3+ (NEGATIVE); NITRITE,URINE NEGATIVE (NEGATIVE); RBC,URINE 0-2 /HPF; WBC,URINE >100 /HPF
--- NOTE | 2020-08-06 15:05 | ED General ---
General Chief Complaint: - Urinary Stated Complaint: FEVER; URINARY PAIN; COVID+ Nursing Triage Note: Patient presents to the ED with c/o of fever and urinary pain. She reports she started having flu like symptoms last and tested positive for COVID on Sunday. She states that she has been unable to keep her fever down and reports it at 102 degrees. She report that the burning with urination began yesterday. Nursing Sepsis Screen: Possible Severe Sepsis Risk Source of Information: Patient Exam Limitations: No Limitations History of Present Illness Date Seen by Provider: Aug 06, 2020 Time Seen by Provider: 14:41 Initial Comments Here with report of persistent fever and now with dysuria. Patient has COVID-19 and has tested positive on Sunday of this week with symptoms starting Sunday of last week. also Covid positive. Complains of ear fullness. Concerned that she may be dehydrated and that is why her urination is less. Does have history of urinary tract infections though. Urinary problems worse since yesterday. Denies nausea or vomiting. Timing/Duration: 1 Week, Getting Worse Severity: Moderate Associated Systoms: No Chest Pain; Cough, Fever/Chills; No Nausea/Vomiting, No Shortness of Air, No Weakness Allergies and Home Medications Allergies Coded Allergies: Penicillins (Verified Allergy, Severe, anaphylaxis, 09/25/18) Sulfa (Sulfonamide Antibiotics) (Verified Allergy, Severe, anaphylaxis, 09/25/18) iodine (Verified Allergy, Severe, anaphylaxis, 09/25/18) levofloxacin (Verified Allergy, Mild, hives, 09/25/18) meperidine (Verified Allergy, Mild, hives, 09/25/18) methylprednisolone (Verified Allergy, Unknown, 09/25/18) povidone-iodine (Verified Allergy, Unknown, 09/25/18) soap (Verified Allergy, Unknown, 09/25/18) Uncoded Allergies: TAPE (Adverse Reaction, Unknown, 09/25/18) Patient Home Medication List Home Medication List Reviewed: Yes Review of Systems Review of Systems Constitutional: see HPI, chills, fever Respiratory: cough; No short of breath Cardiovascular: no symptoms reported Gastrointestinal: no symptoms reported Musculoskeletal: no symptoms reported, muscle pain; No muscle weakness Skin: no symptoms reported Psychiatric/Neurological: Denies Headache, Denies Weakness All Other Systems Reviewed Negative Unless Noted: Yes Past Vropgan-Ayomaq-Vwepbw Hx Past Med/Social Hx: Reviewed Nursing Past Med/Soc Hx Patient Social History Alcohol Use: Denies Use Smoking Status: Never a Smoker 2nd Hand Smoke Exposure: No Recent Infectious Disease Expo: Yes (COVID +) Recent Hopitalizations: No Seasonal Allergies Seasonal Allergies: No Past Medical History Surgeries: Yes ("kidney stone") Gallbladder, Lumpectomy Respiratory: No Cardiac: Yes ("sinus tachacardia rate in 200s) Genitourinary: Yes Kidney Stones Gastrointestinal: No Musculoskeletal: Yes Fibromyalgia Endocrine: Yes Hypothyroidsim HEENT: No Cancer: No Psychosocial: Yes Anxiety Integumentary: No Blood Disorders: No Family Medical History Reviewed Nursing Family Hx No Pertinent Family Hx Physical Exam Vital Signs Vital Signs - First Documented 08/06/20 14:10 Temp 37.3 Pulse 102 Resp 16 B/P (MAP) 122/71 (88) Pulse Ox 95 O2 Delivery Room Air Capillary Refill : Less Than 3 Seconds Height, Weight, BMI Height: 5'2.00" Weight: 190lbs. oz. 86.067076ve; 36.00 BMI Method:Stated General Appearance: No Apparent Distress, WD/WN HEENT: PERRL/EOMI, Pharynx Normal, TM Abnormal (L) (Bulging TM without loss of landmarks), TM Abnormal (R) (Bulging TM without loss of landmarks) Neck: Non Tender, Supple Respiratory: Lungs Clear, Normal Breath Sounds Cardiovascular: No Murmur, Tachycardia Gastrointestinal: Non Tender, Soft Back: Normal Inspection, No CVA Tenderness, No Vertebral Tenderness Extremity: Normal Range of Motion, Non Tender, No Calf Tenderness Neurologic/Psychiatric: Alert, Oriented x3 Skin: Normal Color, Warm/Dry Progress/Results/Core Measures Suspected Sepsis Recent Fever Within 48 Hours: Yes Infection Criteria Present: Documented Infection New/Unexplained Altered Menta: No Sepsis Screen: Possible Severe Sepsis Risk SIRS Temperature: Pulse: 102 Respiratory Rate: 16 Laboratory Tests 08/06/20 14:39: White Blood Count 4.9 Blood Pressure 122 /71 Mean: 88 Laboratory Tests 08/06/20 14:39: Creatinine 0.76, Platelet Count 164, Total Bilirubin 0.2 Results/Orders Lab Results Laboratory Tests Test 08/06/20 14:30 08/06/20 14:39 Range/Units Urine Color YELLOW Urine Clarity CLOUDY Urine pH 6.0 5-9 Urine Specific [place] 1.010 L 1.016-1.022 Urine Protein NEGATIVE NEGATIVE Urine Glucose (UA) NEGATIVE NEGATIVE Urine Ketones NEGATIVE NEGATIVE Urine Nitrite NEGATIVE NEGATIVE Urine Bilirubin NEGATIVE NEGATIVE Urine Urobilinogen 0.2 < = 1.0 MG/DL Urine Leukocyte Esterase 3+ H NEGATIVE Urine RBC (Auto) 2+ H NEGATIVE Urine RBC 0-2 /HPF Urine WBC >100 H /HPF Urine Squamous Epithelial Cells 10-25 H /HPF Urine Renal Epithelial Cells 2-5 /HPF Urine Crystals NONE /LPF Urine Bacteria TRACE /HPF Urine Casts NONE /LPF Urine Mucus NEGATIVE /LPF Urine Culture Indicated YES White Blood Count 4.9 4.3-11.0 10^3/uL Red Blood Count 4.66 4.35-5.85 10^6/uL Hemoglobin 14.8 11.5-16.0 G/DL Hematocrit 43 35-52 % Mean Corpuscular Volume 93 80-99 FL Mean Corpuscular Hemoglobin 32 25-34 PG Mean Corpuscular Hemoglobin Concent 34 32-36 G/DL Red Cell Distribution Width 12.9 10.0-14.5 % Platelet Count 164 130-400 10^3/uL Mean Platelet Volume 10.6 H 7.4-10.4 FL Immature Granulocyte % (Auto) 0 % Neutrophils (%) (Auto) 69 42-75 % Lymphocytes (%) (Auto) 21 12-44 % Monocytes (%) (Auto) 9 0-12 % Eosinophils (%) (Auto) 1 0-10 % Basophils (%) (Auto) 0 0-10 % Neutrophils # (Auto) 3.4 1.8-7.8 X 10^3 Lymphocytes # (Auto) 1.0 1.0-4.0 X 10^3 Monocytes # (Auto) 0.4 0.0-1.0 X 10^3 Eosinophils # (Auto) 0.0 0.0-0.3 10^3/uL Basophils # (Auto) 0.0 0.0-0.1 10^3/uL Immature Granulocyte # (Auto) 0.0 0.0-0.1 10^3/uL Sodium Level 132 L 135-145 MMOL/L Potassium Level 4.3 3.6-5.0 MMOL/L Chloride Level 100 98-107 MMOL/L Carbon Dioxide Level 24 21-32 MMOL/L Anion Gap 8 5-14 MMOL/L Blood Urea Nitrogen 8 7-18 MG/DL Creatinine 0.76 0.60-1.30 MG/DL Estimat Glomerular Filtration Rate > 60 BUN/Creatinine Ratio 11 Glucose Level 120 H 70-105 MG/DL Calcium Level 8.5 8.5-10.1 MG/DL Corrected Calcium 8.7 8.5-10.1 MG/DL Total Bilirubin 0.2 0.1-1.0 MG/DL Aspartate Amino Transf (AST/SGOT) 70 H 5-34 U/L Alanine Aminotransferase (ALT/SGPT) 80 H 0-55 U/L Alkaline Phosphatase 132 40-136 U/L C-Reactive Protein 3.51 H <0.50 MG/DL Total Protein 7.1 6.4-8.2 GM/DL Albumin 3.7 3.2-4.5 GM/DL My Orders Orders - MIKAELA MARTIN MD Cbc With Automated Diff (08/06/20 14:40) Comprehensive Metabolic Panel (08/06/20 14:40) Ua Culture If Indicated (08/06/20 14:40) Crp Fs (08/06/20 14:40) Lactated Ringers (Lr 1000 Ml Iv Solution (08/06/20 14:40) Ed Iv/Invasive Line Start (08/06/20 14:40) Urine Culture (08/06/20 14:30) Vital Signs/I&O 08/06/20 14:10 Temp 37.3 Pulse 102 Resp 16 B/P (MAP) 122/71 (88) Pulse Ox 95 O2 Delivery Room Air Capillary Refill : Less Than 3 Seconds Blood Pressure Mean: 88 Progress Note : Progress Note Seen and evaluated. IV, labs, UA, LR 1 L bolus ordered. Monitor patient. 1615: Overall feeling a little better. UA may have contamination but we will treat based on symptoms and history. States usually Macrobid works and we will do that for 3 days. Patient feels like she can tolerate okay at home. Discharged home with return precautions. Patient verbalized understanding of instructions and agreement with plan. Departure Impression Primary Impression: COVID-19 virus infection Additional Impressions: Urinary tract infection Qualified Codes: N30.00 - Acute cystitis without hematuria Dehydration Disposition: HOME, SELF-CARE Condition: Stable Departure-Patient Inst. Decision time for Depature: 16:10 Referrals: ANTOINETTE MESSINA APRN (PCP) Primary Care Physician [facility] (Family) Primary Care Physician Patient Instructions: Urinary Tract Infection, Adult (DC), Coronavirus Disease 2019 (COVID-19) (DC) Add. Discharge Instructions: All discharge instructions reviewed with patient and/or family. Voiced understanding. Take medications as directed. Follow-up with your doctor in a few days for recheck. Drink plenty of fluids. You may take Tylenol/acetaminophen 1000 mg every 6 hours as needed for fever or pain. You may take ibuprofen up to 600 mg every 8 hours as needed for fever or pain. Eat a diet as tolerated. Return for worse pain, oxygen saturations less than 90% while resting, breathing problems, weakness, vomiting or other concerns as needed. Scripts Nitrofurantoin Macrocrystal (Nitrofurantoin) 100 Mg Capsule 100 MG PO BID, #6 CAP 0 Refills Prov: MIKAELA MARTIN MD 08/06/20 Copy Copies To 1: KENYATTA LNI TIMOTHY D MD Aug 06, 2020 15:04
[2020-08-06 15:10] LABS: ALANINE AMINOTRANSFERASE 80 U/L (0-55); ALKALINE PHOSPHATASE 132 U/L (40-136); BILIRUBIN,TOTAL 0.2 MG/DL (0.1-1.0); BUN/CREATININE RATIO 11; CALCIUM 8.5 MG/DL (8.5-10.1); CARBON DIOXIDE 24 MMOL/L (21-32); CHLORIDE 100 MMOL/L (98-107); CREATININE SERUM 0.76 MG/DL (0.60-1.30); GFR ESTIMATED > 60; GLUCOSE 120 MG/DL (70-105); POTASSIUM 4.3 MMOL/L (3.6-5.0); SODIUM 132 MMOL/L (135-145); TOTAL PROTEIN 7.1 GM/DL (6.4-8.2)
[2020-08-06 15:11] LABS: ALBUMIN 3.7 GM/DL (3.2-4.5)
[2020-08-06] MEDS ORDERED: NITR100C PO (16:18)
[2020-08-06 16:51] VITALS: BP 126/67
== END 2020-08-06 16:50 | disposition home or self-care (01) ==
LOC: EDUNIT# 14:07 → ER FS 14:09
DX: U07.1 COVID-19 (principal); N30.00 Acute cystitis without hematuria; E86.0 Dehydration; Z73.0 Burn-out; Z88.0 Allergy status to penicillin; Z88.1 Allergy status to other antibiotic agents; Z88.2 Allergy status to sulfonamides; Z88.5 Allergy status to narcotic agent; Z88.8 Allergy status to other drugs, medicaments and biological substances; Z91.048 Other nonmedicinal substance allergy status
CPT/HCPCS: 36415; 80053; 81000; 85025; 86141; 87077; 87088

== ENCOUNTER 2020-08-08 15:36 | Inpatient (IN) | payer BC ==
[~2020-08-08] VITALS: Ht 154.9 cm; Wt 91.3 kg
[~2020-08-08 15:36] MED LIST changes: +NITR100C PO
[2020-08-08] MEDS ORDERED: LACTATED RINGERS 1,000 ML IV ONE ×2 (16:00→18:26)
[2020-08-08] MEDS ORDERED: KETOROLAC 30 MG/ML VIAL IVP ONE (16:00)
[2020-08-08 16:04] LABS: ABG BASE EXCESS 0.9 MMOL/L (-2.5-2.5); ABG OXYGEN SATURATION 96 % (94-100); ABG PCO2 41 MMHG (35-45); ABG PO2 92 MMHG (79-93); ABG TCO2 26.2 MMOL/L (21.0-31.0)
[2020-08-08] MEDS ORDERED: FLUT16SP22 NSEACH (16:04)
[2020-08-08] MEDS ORDERED: DOXY100C2 PO (16:04)
[2020-08-08 16:05] LABS: ALLENS TEST YES-POS; INSPIRED O2 2L; PATIENT TEMP 100.2; VENTILATOR NO
--- NOTE | 2020-08-08 16:07 | ED Respiratory ---
General Chief Complaint: Respiratory Problems Stated Complaint: COVID POSITIVE/PNA/SOB Nursing Triage Note: ARRIVED VIA WC TO ROOM 09 IN [facility] [place]. STATES SHE IS DAY 10 OF BEING COVID POSITIVE. HAS BEEN RUUNING A HIGH FEVER WITH N/V. ALSO HAS BEEN BLOWING BLOOD FROM HER NOSE. WAS SEEN AT URGENT CARE TODAY AND GIVEN A ABX FOR A SINUS INFECTION. Source: patient Exam Limitations: no limitations History of Present Illness Date Seen by Provider: Aug 08, 2020 Time Seen by Provider: 15:45 Initial Comments The patient presents ER by private conveyance from home with chief complaint of nausea for the past 2 days inability to keep fluids and food down. She is also having some shortness of air and today went to urgent care and was diagnosed with a sinus infection and given a prescription for doxycycline. She took 1 tablet and vomited up. She was diagnosed last Sunday about 10 days ago with COVID-19 from an outside source. Her had a before her and had very minor symptoms. She was seen at the ER in [place] and at the time was not requiring oxygen and told to follow-up here if she got worse. She has no history of lung disease, COPD, smoking etc. She has been having some low-grade fevers and unable to treat them with Tylenol Motrin today because of her nausea. She feels dehydrated. She denies dysuria or chest pain. She is having some mild shortness of air. She does not require oxygen at baseline. Allergies and Home Medications Allergies Coded Allergies: Penicillins (Verified Allergy, Severe, anaphylaxis, 09/25/18) Sulfa (Sulfonamide Antibiotics) (Verified Allergy, Severe, anaphylaxis, 09/25/18) amoxicillin (Verified Allergy, Severe, FACIAL SWELLING, 08/08/20) clavulanic acid (Verified Allergy, Severe, FACIAL SWELLING, 08/08/20) iodine (Verified Allergy, Severe, anaphylaxis, 09/25/18) levofloxacin (Verified Allergy, Mild, hives, 09/25/18) meperidine (Verified Allergy, Mild, hives, 09/25/18) methylprednisolone (Verified Allergy, Unknown, 09/25/18) povidone-iodine (Verified Allergy, Unknown, 09/25/18) soap (Verified Allergy, Unknown, 09/25/18) Uncoded Allergies: TAPE (Adverse Reaction, Unknown, 09/25/18) Home Medications Nitrofurantoin Macrocrystal 100 Mg Capsule, 100 MG PO BID Prescribed by: MIKAELA MARTIN on 08/06/20 1618 Patient Home Medication List Home Medication List Reviewed: Yes Review of Systems Review of Systems Constitutional: chills, fever, malaise EENTM: No ear pain, No eye pain Respiratory: No cough, No short of breath Cardiovascular: No edema, No vascular heart diseas Gastrointestinal: No abdominal pain, No constipation; nausea, vomiting Genitourinary: No discharge, No dysuria Musculoskeletal: No back pain, No joint pain All Other Systems Reviewed Negative Unless Noted: Yes Past Ehshxat-Gtjrgp-Vagfal Hx Patient Social History Alcohol Use: Denies Use Smoking Status: Never a Smoker 2nd Hand Smoke Exposure: No Recent Infectious Disease Expo: No Recent Hopitalizations: No Seasonal Allergies Seasonal Allergies: No Past Medical History Surgeries: Yes ("kidney stone") Gallbladder, Lumpectomy Respiratory: No Cardiac: Yes ("sinus tachacardia rate in 200s) Genitourinary: Yes Kidney Stones Gastrointestinal: No Musculoskeletal: Yes Fibromyalgia Endocrine: Yes Hypothyroidsim HEENT: No Cancer: No Psychosocial: Yes Anxiety Integumentary: No Blood Disorders: No Family Medical History No Pertinent Family Hx Physical Exam Vital Signs - First Documented 08/08/20 15:38 Temp 37.9 Pulse 99 Resp 20 B/P (MAP) 122/64 (83) Pulse Ox 88 O2 Delivery Nasal Cannula O2 Flow Rate 1.00 Capillary Refill : Less Than 3 Seconds Height: 5'2.00" Weight: 190lbs. oz. 86.544444ot; 25.00 BMI Method:Stated General Appearance: WD/WN, moderate distress Eyes: Bilateral Eye Normal Inspection, Bilateral Eye PERRL, Bilateral Eye EOMI HEENT: PERRL/EOMI, TMs normal, pharyngeal erythema, other (Maxillary and frontal sinuses bilaterally tender to palpation with some thick nasal discharge) Neck: non-tender, full range of motion, supple, normal inspection Respiratory: lungs clear, normal breath sounds, no respiratory distress, no accessory muscle use Cardiovascular: normal peripheral pulses, regular rate, rhythm Gastrointestinal: normal bowel sounds, non tender, soft Extremities: normal range of motion, non-tender, no pedal edema, normal capil libby refill Neurologic/Psychiatric: alert, normal mood/affect, oriented x 3 Skin: normal color, warm/dry Focused Exam Lactate Level 08/08/20 15:50: Lactic Acid Level 1.16 Lactic Acid Level Laboratory Tests Test 08/08/20 15:50 Lactic Acid Level 1.16 MMOL/L (0.50-2.00) Progress/Results/Core Measures Suspected Sepsis Recent Fever Within 48 Hours: Yes Infection Criteria Present: Documented Infection New/Unexplained Altered Menta: No Sepsis Screen: Possible Severe Sepsis Risk SIRS Temperature: Pulse: 99 Respiratory Rate: 20 Laboratory Tests 08/08/20 15:50: White Blood Count 5.8 Blood Pressure 122 /64 Mean: 83 08/08/20 15:50: Lactic Acid Level 1.16 Laboratory Tests 08/08/20 15:50: Creatinine 0.79, INR Comment 1.0, Platelet Count 165, Total Bilirubin 0.5 Results/Orders Lab Results Laboratory Tests Test 08/08/20 15:50 08/08/20 15:55 Range/Units White Blood Count 5.8 4.3-11.0 10^3/uL Red Blood Count 4.68 3.80-5.11 10^6/uL Hemoglobin 14.6 11.5-16.0 g/dL Hematocrit 44 35-52 % Mean Corpuscular Volume 94 80-99 fL Mean Corpuscular Hemoglobin 31 25-34 pg Mean Corpuscular Hemoglobin Concent 33 32-36 g/dL Red Cell Distribution Width 13.0 10.0-14.5 % Platelet Count 165 130-400 10^3/uL Mean Platelet Volume 11.2 9.0-12.2 fL Immature Granulocyte % (Auto) 0 % Neutrophils (%) (Auto) 72 42-75 % Lymphocytes (%) (Auto) 20 12-44 % Monocytes (%) (Auto) 8 0-12 % Eosinophils (%) (Auto) 0 0-10 % Basophils (%) (Auto) 0 0-10 % Neutrophils # (Auto) 4.2 1.8-7.8 10^3/uL Lymphocytes # (Auto) 1.1 1.0-4.0 10^3/uL Monocytes # (Auto) 0.4 0.0-1.0 10^3/uL Eosinophils # (Auto) 0.0 0.0-0.3 10^3/uL Basophils # (Auto) 0.0 0.0-0.1 10^3/uL Immature Granulocyte # (Auto) 0.0 0.0-0.1 10^3/uL Prothrombin Time 13.4 12.2-14.7 SEC INR Comment 1.0 0.8-1.4 Activated Partial Thromboplast Time 36 H 24-35 SEC Sodium Level 134 L 135-145 MMOL/L Potassium Level 4.2 3.6-5.0 MMOL/L Chloride Level 99 98-107 MMOL/L Carbon Dioxide Level 23 21-32 MMOL/L Anion Gap 12 5-14 MMOL/L Blood Urea Nitrogen 6 L 7-18 MG/DL Creatinine 0.79 0.60-1.30 MG/DL Estimat Glomerular Filtration Rate > 60 BUN/Creatinine Ratio 8 Glucose Level 106 H 70-105 MG/DL Lactic Acid Level 1.16 0.50-2.00 MMOL/L Calcium Level 8.3 L 8.5-10.1 MG/DL Corrected Calcium 8.6 8.5-10.1 MG/DL Total Bilirubin 0.5 0.1-1.0 MG/DL Aspartate Amino Transf (AST/SGOT) 80 H 5-34 U/L Alanine Aminotransferase (ALT/SGPT) 73 H 0-55 U/L Alkaline Phosphatase 160 H 40-136 U/L Total Protein 7.3 6.4-8.2 GM/DL Albumin 3.6 3.2-4.5 GM/DL Blood Gas Puncture Site R RAD Blood Gas Patient Temperature 100.2 Arterial Blood pH 7.40 7.37-7.43 Arterial Blood Partial Pressure CO2 41 35-45 MMHG Arterial Blood Partial Pressure O2 92 79-93 MMHG Arterial Blood HCO3 25 23-27 MMOL/L Arterial Blood Total CO2 26.2 21.0-31.0 MMOL/L Arterial Blood Oxygen Saturation 96 94-100 % Arterial Blood Base Excess 0.9 -2.5-2.5 MMOL/L Charanjit Test YES-POS Blood Gas Ventilator Setting NO Blood Gas Inspired Oxygen 2L Micro Results Microbiology 08/08/20 Influenza Types A,B Antigen (ANTONIA) - Final, Complete My Orders Orders - GORDON CHAU Arterial Blood Gas (08/08/20 15:58) Cbc With Automated Diff (08/08/20 16:00) Comprehensive Metabolic Panel (08/08/20 16:00) Blood Culture (08/08/20 16:00) Sputum Culture (08/08/20 16:00) Urinalysis (08/08/20 16:00) Urine Culture (08/08/20 16:00) Protime With Inr (08/08/20 16:00) Partial Thromboplastin Time (08/08/20 16:00) Chest 1 View, Ap/Pa Only (08/08/20 16:00) Ed Iv/Invasive Line Start (08/08/20 16:00) Ed Iv/Invasive Line Start (08/08/20 16:00) Vital Signs Adult Sepsis Patie Q15M (08/08/20 16:00) O2 (08/08/20 16:00) Remove Rings In Anticipation O (08/08/20 16:00) Lactic Acid Analyzer (08/08/20 16:00) Influenza A And B Antigens (08/08/20 16:00) Lactated Ringers (Lr 1000 Ml Iv Solution (08/08/20 16:00) Covid-19 External Lab Results (08/08/20 16:00) Ketorolac Injection (Toradol Injection) (08/08/20 16:00) Doxycycline Injection (Vibramycin Inject (08/08/20 16:15) Dexamethasone Injection (Decadron Injec (08/08/20 17:00) Hs C Reactive Protein (08/08/20 16:52) Procalcitonin (Pct) (08/08/20 16:52) Fibrin Degradation Products (08/08/20 16:52) Medications Given in ED Current Medications Medications Dose Ordered Sig/Blayne Route Start Time Stop Time Status Last Admin Dose Admin Doxycycline Hyclate 100 mg/ Sodium Chloride 100 ml @ 100 mls/hr ONCE ONCE IV 08/08/20 16:15 08/08/20 17:14 08/08/20 16:16 100 MLS/HR Ketorolac Tromethamine 30 mg ONCE ONCE IVP 08/08/20 16:00 08/08/20 16:02 DC 08/08/20 16:09 30 MG Lactated Ringer's 1,000 ml @ 0 mls/hr Q0M ONCE IV 08/08/20 16:00 08/08/20 16:02 DC 08/08/20 16:10 1,000 MLS/HR Vital Signs/I&O 08/08/20 08/08/20 15:38 15:38 Temp 37.9 Pulse 99 Resp 20 B/P (MAP) 122/64 (83) Pulse Ox 88 88 O2 Delivery Nasal Cannula Room Air O2 Flow Rate 1.00 Capillary Refill : Less Than 3 Seconds Blood Pressure Mean: 83 Progress Note #1: Time: 16:08 Progress Note Sepsis, COVID-19, maxillary sinusitis, requiring oxygen with her oxygen sats in the upper 80s on room air so I put her on 3 L. ABG. Influenza swab. 1 L of fluids as we do not want to overload her fluids with COVID-19 and doxycycline should cover maxillary sinusitis and pneumonia given her history of multiple allergies which she states all cause her throat to swell shut. Progress Note #2: Time: 17:00 Progress Note The patient states that her allergy to methylprednisolone is that it caused hives in 1 specific spot. She says she used to get it all the time when she was in high school for allergies. Diagnostic Imaging Diagonstic Imaging: Xray Plain Films/CT/US/NM/MRI: chest Comments NAME: JUD MANSFIELD I MED REC#: [id number] PT STATUS: REG ER : 1965 PHYSICIAN: GORDON CHAU MD ADMIT DATE: 08/08/20/ER Draft Date of Exam:08/08/20 CHEST 1 VIEW, AP/PA ONLY EXAMINATION: Chest 1 view. HISTORY: Sepsis. COMPARISON: 01/27/2020. FINDINGS: There are multifocal airspace opacities in both lungs, left greater than right. Lung volumes are small. No pleural effusion is seen. No pneumothorax. Heart is normal in size. IMPRESSION: Multifocal bilateral airspace opacities, left greater than right, most consistent with a multifocal pneumonia. Dictated on workstation # [id number] Dict: 08/08/20 1646 Trans: 08/08/20 1647 [facility] [id number] Interpreted by: DENIS ADLER MD Electronically signed by: Reviewed: Reviewed by Me Departure Communication (Admissions) Time/Spoke to Admitting Phy: 17:00 Discussed the case with Dr. Carmen and she agrees to admit the patient to the floor on oxygen with doxycycline for sinusitis. Decadron and Lovenox for DVT prophylaxis Impression Primary Impression: Severe acute respiratory syndrome coronavirus 2 (SARS-CoV-2) detected Additional Impressions: Maxillary sinusitis, acute Qualified Codes: J01.00 - Acute maxillary sinusitis, unspecified Sepsis Qualified Codes: A41.9 - Sepsis, unspecified organism; R65.20 - Severe sepsis without septic shock; J96.01 - Acute respiratory failure with hypoxia Disposition: 09 ADMITTED INPATIENT Condition: Stable Admissions Decision to Admit Reason: Admit from ER (General) Decision to Admit/Date: Aug 08, 2020 Time/Decision to Admit Time: 15:56 Departure-Patient Inst. Referrals: ANTOINETTE MESSINA APRN (PCP) Primary Care Physician [facility] (Family) Primary Care Physician GORDON CHAU Aug 08, 2020 16:07
[2020-08-08 16:08] LABS: BASOPHILS % (AUTO) 0 % (0-10); EOSINOPHILS % (AUTO) 0 % (0-10); HEMATOCRIT 44 % (35-52); HEMOGLOBIN 14.6 g/dL (11.5-16.0); LYMPHOCYTES # (AUTO) 1.1 10^3/uL (1.0-4.0); LYMPHOCYTES % (AUTO) 20 % (12-44); MEAN CORPUSCULAR HEMOGLOBIN 31 pg (25-34); MEAN CORPUSCULAR HGB CONC 33 g/dL (32-36); MEAN CORPUSCULAR VOLUME 94 fL (80-99); MEAN PLATELET VOLUME 11.2 fL (9.0-12.2); MONOCYTES # (AUTO) 0.4 10^3/uL (0.0-1.0); MONOCYTES % (AUTO) 8 % (0-12); NEUTROPHILS # (AUTO) 4.2 10^3/uL (1.8-7.8); NEUTROPHILS % (AUTO) 72 % (42-75); PLATELET COUNT 165 10^3/uL (130-400); WHITE BLOOD COUNT 5.8 10^3/uL (4.3-11.0)
[2020-08-08] MEDS ORDERED: DOXYCYCLINE INJECTION 100 MG in NS (IVPB) 100 ML IV ONE (16:15)
[2020-08-08 16:24] LABS: ALANINE AMINOTRANSFERASE 73 U/L (0-55); ALBUMIN 3.6 GM/DL (3.2-4.5); ALKALINE PHOSPHATASE 160 U/L (40-136); BILIRUBIN,TOTAL 0.5 MG/DL (0.1-1.0); BUN/CREATININE RATIO 8; CALCIUM 8.3 MG/DL (8.5-10.1); CARBON DIOXIDE 23 MMOL/L (21-32); CHLORIDE 99 MMOL/L (98-107); CREATININE SERUM 0.79 MG/DL (0.60-1.30); GFR ESTIMATED > 60; GLUCOSE 106 MG/DL (70-105); POTASSIUM 4.2 MMOL/L (3.6-5.0); PROTHROMBIN TIME PATIENT 13.4 SEC (12.2-14.7); SODIUM 134 MMOL/L (135-145); TOTAL PROTEIN 7.3 GM/DL (6.4-8.2)
--- NOTE | 2020-08-08 16:48 | Diagnostic Imaging Report ---
EXAMINATION: Chest 1 view. HISTORY: Sepsis. COMPARISON: 01/27/2020. FINDINGS: There are multifocal airspace opacities in both lungs, left greater than right. Lung volumes are small. No pleural effusion is seen. No pneumothorax. Heart is normal in size. IMPRESSION: Multifocal bilateral airspace opacities, left greater than right, most consistent with a multifocal pneumonia. Dictated by: Dictated on workstation # [id number]
[2020-08-08 17:55] VITALS: BP 136/71
[2020-08-08] MEDS ORDERED: ONDANSETRON 4 MG/2 ML (SDV) Z0FRAN IVP PRN (18:15)
[2020-08-08] MEDS ORDERED: ANTACID SUSP 30 ML UDC (MYLANTA) PO PRN (18:15)
[2020-08-08 18:51] VITALS: BP 122/64
[2020-08-08] MEDS ORDERED: RT-ALBUTEROL INHALER HFA (VENTOLIN HFA) 18 GM IH PRN (19:00)
[2020-08-08] MEDS ORDERED: LACTATED RINGERS 1,000 ML IV SCH (19:30)
[2020-08-08 19:35] VITALS: BP 131/76
[2020-08-08] MEDS ORDERED: ENOXAPARIN 60 MG/0.6 ML (LOVENOX) SYR SC SCH (21:00)
[2020-08-08 23:05] VITALS: BP 109/69
[2020-08-09] VITALS (7 sets, daily range): BP systolic 101–130; BP diastolic 62–78
[2020-08-09] MEDS ORDERED: ACETAMINOPHEN 325 MG TABLET ONE (05:47)
[2020-08-09] MEDS: DOXYCYCLINE 100 MG (VIBRAMYCIN) TABLET PO SCH ×2 (06:03→16:33)
[2020-08-09] MEDS: PANTOPRAZOLE 40 MG (PROTONIX) TAB PO SCH (06:03)
[2020-08-09] MEDS: LEVOTHYROXINE 75 MCG (LEVOTHROID) TABLET PO SCH (06:03)
[2020-08-09] MEDS: ACETAMINOPHEN 325 MG TABLET PO PRN ×2 (06:03→16:33)
[2020-08-09] MEDS: ALPRAZolam 0.5 MG (XANAX) TAB PO PRN ×2 (09:27→20:14)
[2020-08-09] MEDS: ENOXAPARIN 40 MG/0.4 ML (LOVENOX) SYR SC SCH ×2 (09:27→20:14)
--- NOTE | 2020-08-09 10:06 | History & Physical-Hospitalist ---
History of Present Illness HPI/Chief Complaint CC: SOB due to Covid HPI: This is a 55yoWF clinic Pt of Katia Lee who was diagnosed with Covid ten days ago, who presented with SOB on exertion, she went to the ER at [place] on Sunday, given IV fluid and sent home, but then she worsened, went to Urgent Care and was subsequently hospitalized. Overall she feels much better, but still having some difficulty with oxygenation during exertion. I did restart her home medication of Propanolol, Xanax and Synthroid. Source: patient Exam Limitations: no limitations Date Seen 08/09/20 Time Seen by a Provider: 10:30 Attending Physician Janeth Carmen MD PCP Katia Lee Aprn Referring Physician Date of Admission Aug 08, 2020 at 17:00 Home Medications & Allergies Home Medications Reviewed patient Home Medication Reconciliation performed by pharmacy medication reconciliations customer account technician and/or nursing. Patients Allergies have been reviewed. Allergies Allergies Coded Allergies Penicillins (Verified Allergy, Severe, anaphylaxis, 09/25/18) Sulfa (Sulfonamide Antibiotics) (Verified Allergy, Severe, anaphylaxis, 09/25/18) amoxicillin (Verified Allergy, Severe, FACIAL SWELLING, 08/08/20) clavulanic acid (Verified Allergy, Severe, FACIAL SWELLING, 08/08/20) iodine (Verified Allergy, Severe, anaphylaxis, 09/25/18) levofloxacin (Verified Allergy, Mild, hives, 09/25/18) meperidine (Verified Allergy, Mild, hives, 09/25/18) methylprednisolone (Verified Allergy, Unknown, 09/25/18) povidone-iodine (Verified Allergy, Unknown, 09/25/18) soap (Verified Allergy, Unknown, 09/25/18) Uncoded Allergies TAPE ( Adverse Reaction, Unknown, 09/25/18) Patient Social History Marrital Status: Employed/Student: employed Tobacco Use?: No Smoking Status: Never a Smoker Smokeless Tobacco Frequency: Never a User Use of E-Cig and/or Vaping dev: No Substance use?: No Alcohol Use?: No Pt stated abuse/neglect: No Immunizations Up To Date Influenza Vaccine Up-to-Date: No; Not Current Tetanus Booster (TDap): More Than 5 Years Hepatitis A: No Hepatitis B: No TB Skin Test: Negative Current Status status: No Do you have an Advance Directi: No Communicates: Verbally Primary Language: Cymro Preferred Spoken Language: Cymro Is interpretation needed?: No Implanted or Applied Medical D: None Past Medical History Hypothyroidism Anxiety Insomnia Family Medical History Family Hx: HTN Review of Systems Constitutional: see HPI, malaise, weakness Respiratory: dyspnea on exertion Physical Exam Physical Exam Vital Signs Vital Signs - First Documented 08/08/20 08/08/20 15:38 18:51 Temp 37.9 Pulse 99 Resp 20 B/P (MAP) 122/64 (83) Pulse Ox 88 O2 Delivery Nasal Cannula O2 Flow Rate 1.00 FiO2 21 Capillary Refill : Less Than 3 Seconds Height, Weight, BMI Height: 5'2.00" Weight: 190lbs. oz. 86.525488xe; 37.71 BMI Method:Stated General Appearance: No Apparent Distress, Chronically ill, Obese Eyes: Right Eye Normal Inspection, Right Eye PERRL HEENT: PERRL/EOMI, Normal ENT Inspection, Pharynx Normal, Moist Mucous Membranes Neck: Full Range of Motion, Normal Inspection, Non Tender Respiratory: Chest Non Tender, Lungs Clear, No Accessory Muscle Use, No Respiratory Distress, Decreased Breath Sounds Cardiovascular: Regular Rate, Rhythm, No Edema, No Gallop, No JVD, No Murmur, Normal Peripheral Pulses Gastrointestinal: Normal Bowel Sounds, No Organomegaly, No Pulsatile Mass, Non Tender, Soft Back: Normal Inspection, No CVA Tenderness, No Vertebral Tenderness Extremity: Normal Capillary Refill, Normal Inspection, Normal Range of Motion, Non Tender, No Calf Tenderness, No Pedal Edema Neurologic/Psychiatric: Alert, Oriented x3, No Motor/Sensory Deficits, Normal Mood/Affect Skin: Normal Color, Warm/Dry Lymphatic: No Adenopathy Results Results/Procedures Labs Laboratory Tests 08/08/20 15:50 Patient resulted labs reviewed. Assessment/Plan Admission Diagnosis Assessment: COVID-19 PNA Hypoxia Hypothyroidism Anxiety Plan: O2 Supportive care Monitor closely Admission Status: Inpatient Order (span 2 midnights) Reason for Inpatient Admission: COVID-19 Supervisory-Addendum Brief Verification & Attestation Participated in pt care: history, MDM, physical Personally performed: exam, history, MDM, supervision of care Care discussed with: Medical Student Procedures: n/a Results interpretation: Verified all documentation Verification and Attestation of Medical Student E/M Service A medical student performed and documented this service in my presence. I reviewed and verified all information documented by the medical student and made modifications to such information, when appropriate. I personally performed the physical exam and medical decision making. Jessica Márquez, Aug 10, 2020,04:52 JESSICA MÁRQUEZ DO Aug 09, 2020 10:06
--- NOTE | 2020-08-09 10:15 | Diagnostic Imaging Report ---
INDICATION: COVID 19 positive. Time of exam 8:31 AM Correlation is made with prior chest one day earlier. Heart size is normal. There are patchy peripheral based pulmonary infiltrates throughout the right upper and right lower lobe. There is also some minimal infiltrates in the left mid and lower lung field consistent with COVID 19 pneumonia. No effusion is identified. There is no pneumothorax. Heart size is stable. IMPRESSION: Patchy peripheral based pulmonary infiltrates bilaterally consistent with pneumonia. Overall appearance appears stable when compared to examination one day earlier. Report was faxed to Jorge Stephen nurse Infection Control by rosario at 10:14am. Dictated by: Dictated on workstation # [id number]
[2020-08-09] MEDS ORDERED: ALPRAZolam 1 MG (XANAX) TAB PO PRN (10:45)
[2020-08-09] MEDS: PROPRANOLOL 20 MG (INDERAL) TABLET PO SCH ×2 (10:47→20:36)
[2020-08-09] MEDS ORDERED: CHOL500044 PO (10:52)
[2020-08-09] MEDS ORDERED: ALPR1TAB7 PO (10:52)
[2020-08-09] MEDS ORDERED: IBUP-2473 PO (10:52)
[2020-08-09] MEDS ORDERED: ASPI-1238 PO (10:52)
[2020-08-09] MEDS ORDERED: LORA10TA76 PO (10:52)
[2020-08-09] MEDS ORDERED: LEVO75TA6 PO (10:52)
[2020-08-09] MEDS ORDERED: ASCO-262 PO (10:52)
[2020-08-09] MEDS ORDERED: PROP10TA8 PO (10:52)
[2020-08-09] MEDS ORDERED: LEVO75CA5 PO (10:52)
[2020-08-09] MEDS ORDERED: ACET325T38 PO (10:52)
[2020-08-09] MEDS ORDERED: RT-ALBUTEROL INHALER HFA (VENTOLIN HFA) 18 GM IH PRN (13:15)
[2020-08-09] MEDS: RT-ALBUTEROL INHALER HFA (VENTOLIN HFA) 18 GM IH SCH ×2 (15:44→20:13)
[2020-08-10 03:26] VITALS: BP 113/67
[2020-08-10] MEDS: RT-ALBUTEROL INHALER HFA (VENTOLIN HFA) 18 GM IH SCH ×4 (03:28→20:59)
[2020-08-10] MEDS: ACETAMINOPHEN 325 MG TABLET PO PRN ×2 (04:53→21:14)
--- NOTE | 2020-08-10 05:22 | Progress Note - Hospitalist ---
Subjective HPI/CC On Admission Date Seen by Provider: Aug 10, 2020 Time Seen by Provider: 10:00 CC: SOB due to Covid HPI: This is a 55yoWF clinic Pt of Katia Lee who was diagnosed with Covid ten days ago, who presented with SOB on exertion, she went to the ER at [place] on Sunday, given IV fluid and sent home, but then she worsened, went to Urgent Care and was subsequently hospitalized. Overall she feels much better, but still having some difficulty with oxygenation during exertion. I did restart her home medication of Propanolol, Xanax and Synthroid. Subjective/Events-last exam Pt doing okay but on 6 liters of O2 now Consulting Dr. Cohen Answered all questions from her on the phone at the bedside to the best of my ability Pt is very anxious and the is very anxious. Very difficult to reassure, tried my best Antibiotics initiated of Cefepime and Azithromycin considering she is allergic to multiple antibiotics Overall doing well, I told patient and to take one day at a time and monitor closely Review of Systems Pulmonary: Dyspnea, Cough Focused Exam Lactate Level 08/08/20 15:50: Lactic Acid Level 1.16 Objective Exam Vital Signs Vital Signs Date Time Temp Pulse Resp B/P (MAP) Pulse Ox O2 Delivery O2 Flow Rate FiO2 08/11/20 05:18 92 Vapotherm 35.00 95.00 08/11/20 05:08 95 08/11/20 04:58 37.1 79 26 135/86 (102) Capillary Refill : Less Than 3 Seconds General Appearance: No Apparent Distress, WD/WN, Anxious, Chronically ill, Obese Respiratory: No Accessory Muscle Use, No Respiratory Distress, Decreased Breath Sounds Cardiovascular: Regular Rate, Rhythm Neurologic/Psychiatric: Alert, Oriented x3, No Motor/Sensory Deficits, Normal Mood/Affect Results/Procedures Lab Laboratory Tests 08/10/20 06:16 Patient resulted labs reviewed. Assessment/Plan Assessment and Plan Assess & Plan/Chief Complaint Assessment: COVID-19 PNA Hypoxia Hypothyroidism Anxiety Plan: O2 Supportive care Monitor closely 08/10/20: Consult Dr Cohen Added abx Updated while in room with patient JOHNSONJEB DO Aug 10, 2020 05:22
[2020-08-10] MEDS: PANTOPRAZOLE 40 MG (PROTONIX) TAB PO SCH (06:26)
[2020-08-10] MEDS: LEVOTHYROXINE 75 MCG (LEVOTHROID) TABLET PO SCH (06:26)
[2020-08-10 06:30] LABS: BASOPHILS % (AUTO) 0 % (0-10); EOSINOPHILS % (AUTO) 0 % (0-10); HEMATOCRIT 40 % (35-52); HEMOGLOBIN 12.8 g/dL (11.5-16.0); LYMPHOCYTES # (AUTO) 1.4 10^3/uL (1.0-4.0); LYMPHOCYTES % (AUTO) 19 % (12-44); MEAN CORPUSCULAR HEMOGLOBIN 31 pg (25-34); MEAN CORPUSCULAR HGB CONC 32 g/dL (32-36); MEAN CORPUSCULAR VOLUME 96 fL (80-99); MEAN PLATELET VOLUME 11.3 fL (9.0-12.2); MONOCYTES # (AUTO) 0.5 10^3/uL (0.0-1.0); MONOCYTES % (AUTO) 7 % (0-12); NEUTROPHILS # (AUTO) 5.4 10^3/uL (1.8-7.8); NEUTROPHILS % (AUTO) 74 % (42-75); PLATELET COUNT 175 10^3/uL (130-400); WHITE BLOOD COUNT 7.3 10^3/uL (4.3-11.0)
[2020-08-10] MEDS ORDERED: LEVOTHYROXINE 75 MCG (LEVOTHROID) TABLET PO SCH (06:30)
[2020-08-10 06:40] LABS: ALBUMIN 3.2 GM/DL (3.2-4.5)
[2020-08-10 06:41] LABS: CHLORIDE 104 MMOL/L (98-107); SODIUM 139 MMOL/L (135-145)
[2020-08-10 06:42] LABS: CALCIUM 7.9 MG/DL (8.5-10.1)
[2020-08-10 06:43] LABS: GLUCOSE 89 MG/DL (70-105); TOTAL PROTEIN 6.5 GM/DL (6.4-8.2)
[2020-08-10 06:44] LABS: CARBON DIOXIDE 25 MMOL/L (21-32)
[2020-08-10 06:45] LABS: BILIRUBIN,TOTAL 0.3 MG/DL (0.1-1.0)
[2020-08-10 06:46] LABS: ALKALINE PHOSPHATASE 122 U/L (40-136)
[2020-08-10 06:47] LABS: CREATININE SERUM 0.69 MG/DL (0.60-1.30); GFR ESTIMATED > 60
[2020-08-10 06:48] LABS: BUN/CREATININE RATIO 12
[2020-08-10 06:49] LABS: ALANINE AMINOTRANSFERASE 53 U/L (0-55)
[2020-08-10 07:31] VITALS: BP 114/70
[2020-08-10] MEDS: DOXYCYCLINE 100 MG (VIBRAMYCIN) TABLET PO SCH ×2 (08:45→17:41)
[2020-08-10] MEDS: ENOXAPARIN 40 MG/0.4 ML (LOVENOX) SYR SC SCH ×2 (08:45→21:23)
[2020-08-10] MEDS: ALPRAZolam 0.5 MG (XANAX) TAB PO PRN (08:45)
[2020-08-10] MEDS: PROPRANOLOL 20 MG (INDERAL) TABLET PO SCH ×2 (08:45→21:14)
[2020-08-10] MEDS: AZITHROMYCIN INJECTION 500 MG in NS (IVPB) 250 ML IV SCH (10:46)
[2020-08-10 11:16] VITALS: BP 125/74
[2020-08-10 16:29] VITALS: BP 124/73
[2020-08-10 20:54] VITALS: BP 127/76
[2020-08-10 23:09] VITALS: BP 106/65
[2020-08-11] VITALS (27 sets, daily range): BP systolic 103–144; BP diastolic 66–86
[2020-08-11] MEDS: RT-ALBUTEROL INHALER HFA (VENTOLIN HFA) 18 GM IH SCH ×4 (02:24→22:37)
[2020-08-11 04:51] LABS: ABG BASE EXCESS 4.8 MMOL/L (-2.5-2.5); ABG OXYGEN SATURATION 95 % (94-100); ABG PCO2 42 MMHG (35-45); ABG PH 7.45 (7.37-7.43); ABG PO2 70 MMHG (79-93); ABG TCO2 30.1 MMOL/L (21.0-31.0)
[2020-08-11 04:52] LABS: ALLENS TEST YES-POS; INSPIRED O2 90%; PATIENT TEMP 36.5; VENTILATOR NO
[2020-08-11] MEDS ORDERED: FUROSEMIDE 40 MG/4 ML INJ (LASIX) ONE (05:14)
[2020-08-11] MEDS ORDERED: FUROSEMIDE 40 MG/4 ML INJ (LASIX) IVP ONE (05:20)
--- NOTE | 2020-08-11 05:23 | Pulmonary Consultation ---
History of Present Illness History of Present Illness Date Seen by Provider: Aug 11, 2020 Time Seen by Provider: 05:18 Date of Admission History of Present Illness 55yo who was dx with COVID 10days prior to admission 02/07 presented to ED secondary to worsening SOB. Allergies and Home Medications Allergies Coded Allergies: Penicillins (Verified Allergy, Severe, anaphylaxis, 09/25/18) Sulfa (Sulfonamide Antibiotics) (Verified Allergy, Severe, anaphylaxis, 09/25/18) amoxicillin (Verified Allergy, Severe, FACIAL SWELLING, 08/08/20) clavulanic acid (Verified Allergy, Severe, FACIAL SWELLING, 08/08/20) iodine (Verified Allergy, Severe, anaphylaxis, 09/25/18) levofloxacin (Verified Allergy, Mild, hives, 09/25/18) meperidine (Verified Allergy, Mild, hives, 09/25/18) methylprednisolone (Verified Allergy, Unknown, 09/25/18) povidone-iodine (Verified Allergy, Unknown, 09/25/18) soap (Verified Allergy, Unknown, 09/25/18) Uncoded Allergies: TAPE (Adverse Reaction, Unknown, 09/25/18) Home Medications Acetaminophen 325 Mg Tablet, 650 MG PO Q6H PRN for PAIN-MILD (1-4), (Reported) TAKES 2 (325MG) TABLETS Alprazolam 1 Mg Tablet, 0.5 MG PO 0800,1500, (Reported) TAKES (1MG) TABLET Ascorbate Calcium 500 Mg Tablet, 500 MG PO DAILY, (Reported) Aspirin 81 Mg Tablet.dr, 81 MG PO Q48H, (Reported) Cholecalciferol (Vitamin D3) 125 Mcg Tablet, 125 MCG PO DAILY, (Reported) Doxycycline Hyclate 100 Mg Capsule, 100 MG PO BID, (Reported) STARTED TAKING 08/08/2020 10 DAY SUPPLY Fluticasone Propionate 16 Gm [place].susp, 1 SPRAY NSEACH DAILY, (Reported) Ibuprofen 200 Mg Tablet, 600 MG PO Q6H PRN for PAIN-MILD (1-4), (Reported) TAKES 3 (200MG) TABLETS Levothyroxine Sodium 75 Mcg Tablet, 37.5 MCG PO DAILY, (Reported) TAKES (75MCG) TABLET Loratadine 10 Mg Tablet, 10 MG PO DAILY, (Reported) Propranolol HCl 10 Mg Tablet, 10 MG PO BID, (Reported) Past Ketmrap-Ixkaum-Nefjau Hx Patient Social History Alcohol Use: Denies Use Smoking Status: Never a Smoker 2nd Hand Smoke Exposure: No Recent Infectious Disease Expo: No Recent Hopitalizations: No Have you traveled recently?: No Alcohol Use?: No Seasonal Allergies Seasonal Allergies: No Past Medical History Surgeries: Yes ("kidney stone") Gallbladder, Lumpectomy Respiratory: Yes (BRONCHITIS) Cardiac: Yes ("sinus tachacardia rate in 200s) Genitourinary: Yes Kidney Stones Gastrointestinal: No Musculoskeletal: Yes Fibromyalgia Endocrine: Yes Hypothyroidsim HEENT: No Cancer: No Psychosocial: Yes Anxiety Integumentary: No Blood Disorders: No Family Medical History No Pertinent Family Hx HTN Review of Systems Time Seen by Provider: 05:18 Sepsis Event Evaluation Height, Weight, BMI Height: 5'2.00" Weight: 190lbs. oz. 86.294746jd; 37.71 BMI Method:Stated Exam Exam Vital Signs Date Time Temp Pulse Resp B/P (MAP) Pulse Ox O2 Delivery O2 Flow Rate FiO2 08/11/20 05:08 Vapotherm 35.00 95 08/11/20 04:58 37.1 79 26 135/86 (102) 91 Vapotherm 30.00 90.00 08/11/20 03:40 79 Nasal Cannula 6.00 08/11/20 03:34 36.7 72 20 139/75 (96) 92 Vapotherm 30.00 90.00 08/11/20 02:24 90 Nasal Cannula 6.00 08/10/20 23:09 36.7 08/10/20 23:09 36.7 78 20 106/65 (79) 92 Nasal Cannula 6.00 08/10/20 21:14 37.7 08/10/20 20:59 90 Nasal Cannula 4.00 08/10/20 20:54 37.7 93 22 127/76 (93) 89 Nasal Cannula 4.00 08/10/20 20:00 Nasal Cannula 3.50 08/10/20 16:29 37.5 89 20 124/73 (90) 91 Nasal Cannula 4.00 08/10/20 15:15 94 Nasal Cannula 4.00 08/10/20 11:16 36.7 91 20 125/74 (91) 90 Nasal Cannula 3.50 08/10/20 10:14 94 Nasal Cannula 4.00 08/10/20 08:00 High Flow N/C 6.00 08/10/20 07:31 36.5 78 20 114/70 (85) 93 Nasal Cannula 4.00 I & O 08/11/20 07:00 Intake Total 1200 ml Output Total 700 ml Balance 500 ml Height & Weight Height: 5'2.00" Weight: 190lbs. oz. 86.949246zw; 37.71 BMI Method:Stated General Appearance: No Apparent Distress, Chronically ill, Obese HEENT: PERRL/EOMI, Normal ENT Inspection, Pharynx Normal, Moist Mucous Membranes Neck: Full Range of Motion, Normal Inspection, Non Tender Respiratory: Chest Non Tender, Lungs Clear, No Accessory Muscle Use, No Res piratory Distress, Decreased Breath Sounds Cardiovascular: Regular Rate, Rhythm, No Edema, No Gallop, No JVD, No Murmur, Normal Peripheral Pulses Capillary Refill: Less Than 3 Seconds Gastrointestinal: normal bowel sounds, non tender, soft Extremity: Normal Capillary Refill, Normal Inspection, Normal Range of Motion, Non Tender, No Calf Tenderness, No Pedal Edema Neurologic/Psychiatric: Alert, Oriented x3, No Motor/Sensory Deficits, Normal Mood/Affect Skin: Normal Color, Warm/Dry Lymphatic: No Adenopathy Results Lab Laboratory Tests 08/10/20 06:16 Assessment/Plan Assessment/Plan Acute COVID-19 PNA with ARDS -- worsening hypoxia -Pt is now requiring Vapotherm -BiPAP PRN -Awake proning as tolerated -Will order CVP -Decadron 6mg daily -Check ABG -Repeat labs -Repeat CXR PNA -Continue Azithromycin, and Cefepime -Metcalf cultures pending Hypothroid -Home meds Anxiety GI/DVT ppx -continue Lovenox and protonix MARTY BERMUDEZ DO Aug 11, 2020 05:23
[2020-08-11] MEDS: PANTOPRAZOLE 40 MG (PROTONIX) TAB PO SCH (05:26)
[2020-08-11] MEDS: LEVOTHYROXINE 75 MCG (LEVOTHROID) TABLET PO SCH (05:26)
[2020-08-11] MEDS: DOXYCYCLINE 100 MG (VIBRAMYCIN) TABLET PO SCH (05:27)
[2020-08-11 05:40] LABS: BASOPHILS % (AUTO) 0 % (0-10); EOSINOPHILS % (AUTO) 0 % (0-10); HEMATOCRIT 43 % (35-52); HEMOGLOBIN 13.8 g/dL (11.5-16.0); LYMPHOCYTES # (AUTO) 1.6 10^3/uL (1.0-4.0); LYMPHOCYTES % (AUTO) 15 % (12-44); MEAN CORPUSCULAR HEMOGLOBIN 31 pg (25-34); MEAN CORPUSCULAR HGB CONC 32 g/dL (32-36); MEAN CORPUSCULAR VOLUME 96 fL (80-99); MEAN PLATELET VOLUME 11.2 fL (9.0-12.2); MONOCYTES # (AUTO) 0.6 10^3/uL (0.0-1.0); MONOCYTES % (AUTO) 6 % (0-12); NEUTROPHILS # (AUTO) 8.1 10^3/uL (1.8-7.8); NEUTROPHILS % (AUTO) 77 % (42-75); PLATELET COUNT 191 10^3/uL (130-400); WHITE BLOOD COUNT 10.4 10^3/uL (4.3-11.0)
[2020-08-11 05:48] LABS: CHLORIDE 104 MMOL/L (98-107); POTASSIUM 4.1 MMOL/L (3.6-5.0); SODIUM 143 MMOL/L (135-145)
[2020-08-11 05:50] LABS: GLUCOSE 103 MG/DL (70-105)
[2020-08-11 05:51] LABS: CARBON DIOXIDE 25 MMOL/L (21-32)
[2020-08-11 05:53] LABS: PHOSPHORUS 2.5 MG/DL (2.3-4.7)
[2020-08-11 05:54] LABS: CREATININE SERUM 0.75 MG/DL (0.60-1.30); GFR ESTIMATED > 60
[2020-08-11 05:55] LABS: BUN/CREATININE RATIO 15
[2020-08-11] MEDS ORDERED: KCL 20 MEQ TAB (K-DUR) PO ONE (08:00)
--- NOTE | 2020-08-11 08:16 | Diagnostic Imaging Report ---
PROCEDURE: US Venous Lower Ext Maciej. TECHNIQUE: Multiple real-time grayscale images were obtained over the lower extremities in various projections, bilaterally. Additional duplex Doppler and color Doppler images were also obtained. INDICATION: COVID 19 and sinusitis as well as DVT. There is no evidence of right or left lower extremity DVT. Both lower extremity deep venous systems demonstrate normal compressibility with normal response to augmentation and Valsalva. No fluid collection or mass is detected. IMPRESSION: No evidence of right or left lower extremity DVT. Report was faxed to Jorge Stephen nurse Infection Control by rosario at 8:17am. Dictated by: Dictated on workstation # [id number]
[2020-08-11] MEDS: ALPRAZolam 0.5 MG (XANAX) TAB PO PRN (08:17)
[2020-08-11] MEDS: PROPRANOLOL 20 MG (INDERAL) TABLET PO SCH ×2 (08:17→19:46)
--- NOTE | 2020-08-11 08:21 | Diagnostic Imaging Report ---
Indication: COVID 19 pneumonia. Time of exam 4:01 AM Correlation is made with prior chest from 08/09/2020. Heart size stable. Airspace infiltrate throughout the right lung has increased since t2o days earlier. There is also some peripheral based infiltrate left mid and lower lung field, also slightly increased. No effusion or pneumothorax is seen. IMPRESSION: Worsening bilateral pulmonary infiltrates when compared with exam 2 days earlier. Report was faxed to Jorge Stephen, nurse Infection Control by rosario at 8:20AM. Dictated by: Dictated on workstation # [id number]
[2020-08-11] MEDS: ENOXAPARIN 40 MG/0.4 ML (LOVENOX) SYR SC SCH ×2 (08:39→19:46)
[2020-08-11] MEDS: AZITHROMYCIN INJECTION 500 MG in NS (IVPB) 250 ML IV SCH (08:39)
[2020-08-11 08:58] LABS: BILIRUBIN,URINE NEGATIVE (NEGATIVE); CLARITY,URINE CLEAR; COLOR,URINE YELLOW; GLUCOSE, URINE (UA) NEGATIVE (NEGATIVE); KETONES,URINE NEGATIVE (NEGATIVE); LEUKOCYTE ESTERASE ,URINE NEGATIVE (NEGATIVE); NITRITE,URINE NEGATIVE (NEGATIVE); PROTEIN,URINE NEGATIVE (NEGATIVE)
[2020-08-11] MEDS ORDERED: DexMEDEtomidine 250 ML DRIP 250 ML IV SCH (09:00)
[2020-08-11 09:10] LABS: BACTERIA,URINE NEGATIVE /HPF; WBC,URINE 0-2 /HPF
[2020-08-11] MEDS: CEFEPIME INJECTION 1,000 MG in WATER (STERILE) FOR INJECTION 10 ML IV SCH ×3 (09:16→17:32)
--- NOTE | 2020-08-11 10:38 | Progress Note - Hospitalist ---
Subjective HPI/CC On Admission Date Seen by Provider: Aug 11, 2020 Time Seen by Provider: 10:00 CC: SOB due to Covid HPI: This is a 55yoWF clinic Pt of Katia Lee who was diagnosed with Covid ten days ago, who presented with SOB on exertion, she went to the ER at [place] on Sunday, given IV fluid and sent home, but then she worsened, went to Urgent Care and was subsequently hospitalized. Overall she feels much better, but still having some difficulty with oxygenation during exertion. I did restart her home medication of Propanolol, Xanax and Synthroid. Subjective/Events-last exam Pt was transferred to the ICU at 4:30 this morning On Vapotherm and will alternate with BiPAP Dr. Cohen and I discussed the case and he spoke with and updated him Pt maintained on Precedex which has helped the anxiety Checked meds and labs Chest X-ray noted Review of Systems General: Fatigue, Malaise Pulmonary: Dyspnea Focused Exam Lactate Level Objective Exam Vital Signs Vital Signs Date Time Temp Pulse Resp B/P (MAP) Pulse Ox O2 Delivery O2 Flow Rate FiO2 08/12/20 03:20 96 Vapotherm 40.00 100 08/12/20 01:00 80 08/12/20 00:22 36.8 08/12/20 00:00 120/79 (93) 08/11/20 22:37 34 Capillary Refill : Less Than 3 Seconds General Appearance: No Apparent Distress, WD/WN, Anxious, Chronically ill Respiratory: No Accessory Muscle Use, No Respiratory Distress, Decreased Breath Sounds Cardiovascular: Regular Rate, Rhythm Neurologic/Psychiatric: Alert, Oriented x3, No Motor/Sensory Deficits, Normal Mood/Affect Results/Procedures Lab Laboratory Tests 08/11/20 05:30 08/12/20 03:05 Patient resulted labs reviewed. Assessment/Plan Assessment and Plan Assess & Plan/Chief Complaint Assessment: COVID-19 PNA Hypoxia Hypothyroidism Anxiety Plan: O2 Supportive care Monitor closely 08/10/20: Consult Dr Cohen Added abx Updated while in room with patient 08/11/20: ICU BiPAP Vapotherm JEB JOHNSON DO Aug 11, 2020 10:38
--- NOTE | 2020-08-11 14:51 | Physician Query Clarification ---
Physician Query-General Query to Physician: The medical record reflects the following clinical scenario: The patient, in the setting of History/Risk factors, Covid 19 PNA, Clinical Findings Temp 37.9, Pulse 99, Resp 20, B/P (MAP) 122/64 (83), Pulse Ox 88, WBC 5.8, LA 1.16 Treatment: ER: Doxycycline IV, 1L LR, added: Cefepime, and Dexamethasone Please clarify and document if the patient has: Sepsis 1. Not agreed, Sepsis not clinically valid/ruled out 2. Agreed, Sepsis clinically valid diagnosis 3. Other, with explanation of the clinical findings 4. Clinically undetermined, no explanation for the clinical findings Please clarify and document your clinical opinion in the Progress Notes and Discharge Summary including the definitive and/or presumptive diagnosis, (suspected or probable), related to the above clinical findings. Please include clinical findings supporting your diagnosis. In responding to this query, please exercise your independent professional judgment. The purpose of this communication is to more accurately reflect the complexity of your patients condition. The fact that a question is asked does not imply that any particular answer is desired or expected. Please remember a lack of response to the above will prompt a phone page by CDI/coding staff Thank you for timely response to this clarification. Danica Galvan [phone] PHYSICIAN RESPONSE: Based on the clinical findings in the record, please respond to the query above on this document as an addendum. Physician Response: Physician Response 1 If you have questions please contact: Asphalt Tamper: Ext: Thank you for your time and cooperation. Clinical Collection Coordinator/Asphalt Tamper This is a permanent part of the medical record DANICA GALVAN Aug 11, 2020 14:51 JEB JOHNSON DO Aug 11, 2020 20:01
--- NOTE | 2020-08-11 15:02 | Physician Query Clarification ---
Physician Query-General Query to Physician: The medical record reflects the following clinical scenario: The patient, in the setting of History/Risk factors, Covid 19 PNA Clinical Findings Admission RR 20 has increased to 30-40's, Admission 02 Sat 88% on RA, Currently 90% on on 100%, SOA, Treatment High flow O2, Vapotherm, Proning, Pulmonary consult, ICU, Question: Do you agree with the impression of Acute Hypoxic Respiratory Failure per Dr. Mccartney? If you agree, please document in Progress Notes or Discharge Summary. 1. Yes; will document Acute Hypoxic Respiratory Failure Present on Admission in the Progress Notes 2. No; will to document Hypoxia in the Progress Notes 3. Other; will document explanation of clinical findings 4. Clinically undetermined; no explanation for clinical findings Please clarify and document your clinical opinion in the Progress Notes and Discharge Summary including the definitive and/or presumptive diagnosis, (suspected or probable), related to the above clinical findings. Please include clinical findings supporting your diagnosis. In responding to this query, please exercise your independent professional judgment. The purpose of this communication is to more accurately reflect the complexity of your patients condition. The fact that a question is asked does not imply that any particular answer is desired or expected. Please remember a lack of response to the above will prompt a phone page by CDI/coding staff Thank you for timely response to this clarification. Danica Galvan [phone] PHYSICIAN RESPONSE: Based on the clinical findings in the record, please respond to the query above on this document as an addendum. Physician Response: Physician Response 1 If you have questions please contact: Toe Puller: Ext: Thank you for your time and cooperation. Clinical Fire Suppression Captain/Toe Puller This is a permanent part of the medical record DANICA GALVAN Aug 11, 2020 15:02 JEB JOHNSON DO Aug 11, 2020 20:07
[2020-08-11] MEDS: ALPRAZolam 1 MG (XANAX) TAB PO PRN (19:49)
[2020-08-12] VITALS (29 sets, daily range): BP systolic 96–153; BP diastolic 58–95
[2020-08-12] MEDS: CEFEPIME INJECTION 1,000 MG in WATER (STERILE) FOR INJECTION 10 ML IV SCH ×4 (00:20→16:48)
[2020-08-12] MEDS: ACETAMINOPHEN 325 MG TABLET PO PRN ×2 (00:23→20:16)
[2020-08-12] MEDS: RT-ALBUTEROL INHALER HFA (VENTOLIN HFA) 18 GM IH SCH ×6 (02:04→22:30)
[2020-08-12 03:30] LABS: BASOPHILS % (AUTO) 0 % (0-10); EOSINOPHILS % (AUTO) 0 % (0-10); HEMATOCRIT 40 % (35-52); HEMOGLOBIN 12.6 g/dL (11.5-16.0); LYMPHOCYTES % (AUTO) 21 % (12-44); MEAN CORPUSCULAR HEMOGLOBIN 31 pg (25-34); MEAN CORPUSCULAR HGB CONC 32 g/dL (32-36); MEAN CORPUSCULAR VOLUME 96 fL (80-99); MEAN PLATELET VOLUME 11.6 fL (9.0-12.2); MONOCYTES # (AUTO) 0.6 10^3/uL (0.0-1.0); MONOCYTES % (AUTO) 7 % (0-12); NEUTROPHILS # (AUTO) 6.6 10^3/uL (1.8-7.8); NEUTROPHILS % (AUTO) 70 % (42-75); PLATELET COUNT 184 10^3/uL (130-400); WHITE BLOOD COUNT 9.5 10^3/uL (4.3-11.0)
[2020-08-12 03:57] LABS: BUN/CREATININE RATIO 19; CALCIUM 7.9 MG/DL (8.5-10.1); CARBON DIOXIDE 27 MMOL/L (21-32); CHLORIDE 103 MMOL/L (98-107); CREATININE SERUM 0.69 MG/DL (0.60-1.30); GFR ESTIMATED > 60; GLUCOSE 99 MG/DL (70-105); MAGNESIUM 2.1 MG/DL (1.6-2.4); PHOSPHORUS 2.8 MG/DL (2.3-4.7); POTASSIUM 4.4 MMOL/L (3.6-5.0); SODIUM 140 MMOL/L (135-145)
--- NOTE | 2020-08-12 04:54 | Pulmonary Progress Note ---
Subjective Time Seen by a Provider: 04:48 Subjective/Events-last exam Pt is currently on 100% Vapotherm. Sepsis Event Evaluation Height, Weight, BMI Height: 5'2.00" Weight: 190lbs. oz. 86.824220ew; 37.71 BMI Method:Stated Exam Exam Vital Signs Date Time Temp Pulse Resp B/P (MAP) Pulse Ox O2 Delivery O2 Flow Rate FiO2 08/12/20 03:20 96 Vapotherm 40.00 100 08/12/20 02:04 94 Vapotherm 40.00 100 08/12/20 01:00 80 08/12/20 00:28 90 Vapotherm 40.00 100 08/12/20 00:24 Vapotherm 40.00 100.00 08/12/20 00:22 36.8 08/12/20 00:00 76 120/79 (93) 95 NIV Bilevel 100.00 08/11/20 23:00 NIV Bilevel 100.00 08/11/20 23:00 76 132/78 (96) 94 Vapotherm 40.00 100.00 08/11/20 22:37 76 34 88 100.00 08/11/20 22:00 73 42 128/73 (91) 88 Vapotherm 40.00 100.00 08/11/20 21:00 75 39 123/69 (87) 92 Vapotherm 40.00 100.00 08/11/20 20:00 86 30 126/77 (93) 93 Vapotherm 40.00 100.00 08/11/20 19:53 93 Vapotherm 40.00 100 08/11/20 19:44 37.0 86 20 122/71 (88) 92 Vapotherm 40.00 100.00 08/11/20 19:00 85 122/71 (88) 91 Vapotherm 40.00 100.00 08/11/20 19:00 84 08/11/20 18:40 91 Vapotherm 40.00 100 08/11/20 18:00 81 50 136/81 (99) 92 Vapotherm 40.00 100.00 08/11/20 17:00 86 40 103/66 (78) 90 Vapotherm 40.00 100.00 08/11/20 16:00 84 41 118/76 (90) 93 Vapotherm 40.00 100.00 08/11/20 16:00 Vapotherm 40.00 88 08/11/20 16:00 36.6 08/11/20 15:57 90 Vapotherm 40.00 100 08/11/20 15:00 83 40 131/78 (95) 90 Vapotherm 40.00 100.00 08/11/20 14:00 85 29 124/81 (95) 92 Vapotherm 40.00 100.00 08/11/20 13:05 Vapotherm 40.00 100.00 08/11/20 13:00 45 27 118/68 (85) 92 Vapotherm 40.00 100.00 08/11/20 12:27 75 08/11/20 12:00 79 43 123/67 (85) 92 Vapotherm 40.00 100.00 08/11/20 11:42 80 44 94 100.00 08/11/20 11:22 Vapotherm 40.00 88 08/11/20 11:20 37.1 08/11/20 11:20 82 125/75 08/11/20 11:00 77 39 125/75 (92) 90 Vapotherm 40.00 100.00 08/11/20 10:15 87 129/79 08/11/20 10:00 91 Vapotherm 40.00 100 08/11/20 10:00 22 129/79 (96) 92 Vapotherm 40.00 100.00 08/11/20 09:00 85 113/71 (85) 92 Vapotherm 40.00 100.00 08/11/20 08:00 94 125/79 (94) 92 Vapotherm 40.00 100.00 08/11/20 08:00 Vapotherm 40.00 92 08/11/20 07:16 36.9 08/11/20 07:00 89 37 127/86 (100) 91 Vapotherm 40.00 100.00 08/11/20 06:38 82 08/11/20 06:15 90 90 Vapotherm 40.00 100.00 08/11/20 06:05 81 135/84 (101) 90 Vapotherm 35.00 100.00 08/11/20 06:03 90 Vapotherm 35.00 100.00 08/11/20 05:45 78 38 131/83 (99) 89 Vapotherm 35.00 95.00 08/11/20 05:30 84 129/85 (100) 90 Vapotherm 35.00 95.00 08/11/20 05:18 92 Vapotherm 35.00 95.00 08/11/20 05:15 79 39 144/82 (102) 92 Vapotherm 30.00 90.00 08/11/20 05:08 Vapotherm 35.00 95 08/11/20 05:00 78 34 115/82 (93) 91 Vapotherm 30.00 90.00 08/11/20 04:58 37.1 79 26 135/86 (102) 91 Vapotherm 30.00 90.00 08/11/20 04:56 80 I & O 08/12/20 07:00 Intake Total 1525 ml Output Total 2400 ml Balance -875 ml Height & Weight Height: 5'2.00" Weight: 190lbs. oz. 86.499904fp; 37.71 BMI Method:Stated General Appearance: Chronically ill, Mild Distress, Obese HEENT: PERRL/EOMI, Normal ENT Inspection, Pharynx Normal, Moist Mucous Membranes Neck: Full Range of Motion, Normal Inspection, Non Tender Respiratory: Chest Non Tender, Crackles, Decreased Breath Sounds Cardiovascular: Regular Rate, Rhythm, No Edema, No Gallop, No JVD, No Murmur, Normal Peripheral Pulses Capillary Refill: Less Than 3 Seconds Gastrointestinal: normal bowel sounds, non tender, soft Extremity: Normal Capillary Refill, Normal Inspection, Normal Range of Motion, Non Tender, No Calf Tenderness, No Pedal Edema Neurologic/Psychiatric: Alert, Oriented x3, No Motor/Sensory Deficits, Normal Mood/Affect Skin: Normal Color, Warm/Dry Lymphatic: No Adenopathy Results Lab Laboratory Tests 08/10/20 06:16 08/11/20 05:30 08/12/20 03:05 Assessment/Plan Assessment/Plan Acute COVID-19 PNA with ARDS -- worsening hypoxia -Pt is now requiring Vapotherm - 100% -BiPAP PRN -- Did not tolerate BiPAP -Awake proning as tolerated -Will order CVP -Decadron 6mg daily - CXR -- CXR appears worse PNA -Continue Azithromycin, and Cefepime -Metcalf cultures pending Hypothroid -Home meds Anxiety GI/DVT ppx -continue Lovenox and protonix MARTY BERMUDEZ DO Aug 12, 2020 04:54
[2020-08-12] MEDS ORDERED: ANIDULAFUNGIN INJECTION 200 MG in NS (IVPB) 250 ML IV ONE (05:00)
[2020-08-12] MEDS: LEVOTHYROXINE 75 MCG (LEVOTHROID) TABLET PO SCH (06:04)
[2020-08-12] MEDS: PANTOPRAZOLE 40 MG (PROTONIX) TAB PO SCH (06:04)
--- NOTE | 2020-08-12 08:08 | Diagnostic Imaging Report ---
INDICATION: Respiratory distress Portable chest 3:44 AM Right upper extremity PICC line tip projects over the SVC. There are bilateral alveolar infiltrates in the lungs. There are no effusions. IMPRESSION: Severe diffuse pulmonary infiltrates. These appear slightly worse compared to the previous day. Dictated by: Dictated on workstation # [id number]
[2020-08-12] MEDS: FUROSEMIDE 40 MG/4 ML INJ (LASIX) IVP SCH (09:30)
[2020-08-12] MEDS: FLUTICASONE NASAL SPRAY (FLONASE) 16 GM BTL NS SCH (09:31)
[2020-08-12] MEDS: PROPRANOLOL 20 MG (INDERAL) TABLET PO SCH ×2 (09:32→20:12)
[2020-08-12] MEDS: ENOXAPARIN 40 MG/0.4 ML (LOVENOX) SYR SC SCH ×2 (09:48→20:13)
[2020-08-12] MEDS: ALPRAZolam 1 MG (XANAX) TAB PO PRN ×2 (09:49→20:12)
[2020-08-12] MEDS: AZITHROMYCIN INJECTION 500 MG in NS (IVPB) 250 ML IV SCH (09:52)
--- NOTE | 2020-08-12 11:55 | Progress Note - Hospitalist ---
Subjective HPI/CC On Admission Date Seen by Provider: Aug 12, 2020 Time Seen by Provider: 11:00 CC: SOB due to Covid HPI: This is a 55yoWF clinic Pt of Katia Lee who was diagnosed with Covid ten days ago, who presented with SOB on exertion, she went to the ER at [place] on Sunday, given IV fluid and sent home, but then she worsened, went to Urgent Care and was subsequently hospitalized. Overall she feels much better, but still having some difficulty with oxygenation during exertion. I did restart her home medication of Propanolol, Xanax and Synthroid. Subjective/Events-last exam Patient stable Updated her on the labs and CXR Vapotherm maintained ICU maintained High risk for intubation Review of Systems General: Fatigue, Malaise Objective Exam Vital Signs Vital Signs Date Time Temp Pulse Resp B/P (MAP) Pulse Ox O2 Delivery O2 Flow Rate FiO2 08/13/20 05:00 71 28 132/80 (97) 91 Vapotherm 40.00 90.00 08/13/20 03:35 90 08/13/20 03:30 36.1 Capillary Refill : Less Than 3 Seconds General Appearance: No Apparent Distress, WD/WN, Anxious, Chronically ill Respiratory: Lungs Clear Cardiovascular: Regular Rate, Rhythm Neurologic/Psychiatric: Alert, Oriented x3, No Motor/Sensory Deficits, Normal Mood/Affect Results/Procedures Lab Laboratory Tests 08/13/20 03:35 Patient resulted labs reviewed. Assessment/Plan Assessment and Plan Assess & Plan/Chief Complaint Assessment: COVID-19 PNA Hypoxia Hypothyroidism Anxiety Plan: O2 Supportive care Monitor closely 08/10/20: Consult Dr Cohen Added abx Updated while in room with patient 08/11/20: ICU BiPAP Vapotherm 08/12/20: Vapotherm ICU JEB JOHNSON DO Aug 12, 2020 11:55
[2020-08-12] MEDS ORDERED: NS (IVPB) 250 ML ONE ×2 (17:30→19:53)
[2020-08-12] MEDS: polyethylene glycoL POWDER 17 GM (MIRALAX) PACK PO SCH (20:13)
[2020-08-13] VITALS (24 sets, daily range): BP systolic 98–155; BP diastolic 62–97
[2020-08-13] MEDS: CEFEPIME INJECTION 1,000 MG in WATER (STERILE) FOR INJECTION 10 ML IV SCH ×4 (00:46→17:43)
[2020-08-13] MEDS: RT-ALBUTEROL INHALER HFA (VENTOLIN HFA) 18 GM IH SCH ×6 (02:20→22:53)
[2020-08-13 03:47] LABS: BASOPHILS % (AUTO) 0 % (0-10); EOSINOPHILS % (AUTO) 0 % (0-10); HEMATOCRIT 40 % (35-52); HEMOGLOBIN 13.1 g/dL (11.5-16.0); LYMPHOCYTES # (AUTO) 1.7 10^3/uL (1.0-4.0); LYMPHOCYTES % (AUTO) 17 % (12-44); MEAN CORPUSCULAR HEMOGLOBIN 31 pg (25-34); MEAN CORPUSCULAR HGB CONC 33 g/dL (32-36); MEAN CORPUSCULAR VOLUME 95 fL (80-99); MEAN PLATELET VOLUME 11.2 fL (9.0-12.2); MONOCYTES # (AUTO) 0.5 10^3/uL (0.0-1.0); MONOCYTES % (AUTO) 5 % (0-12); NEUTROPHILS # (AUTO) 7.2 10^3/uL (1.8-7.8); NEUTROPHILS % (AUTO) 74 % (42-75); PLATELET COUNT 215 10^3/uL (130-400); WHITE BLOOD COUNT 9.8 10^3/uL (4.3-11.0)
[2020-08-13 04:05] LABS: BUN/CREATININE RATIO 23; CALCIUM 8.5 MG/DL (8.5-10.1); CARBON DIOXIDE 29 MMOL/L (21-32); CHLORIDE 100 MMOL/L (98-107); CREATININE SERUM 0.71 MG/DL (0.60-1.30); GFR ESTIMATED > 60; GLUCOSE 92 MG/DL (70-105); MAGNESIUM 2.2 MG/DL (1.6-2.4); PHOSPHORUS 3.6 MG/DL (2.3-4.7); POTASSIUM 4.2 MMOL/L (3.6-5.0); SODIUM 140 MMOL/L (135-145)
--- NOTE | 2020-08-13 04:49 | Pulmonary Progress Note ---
Subjective Time Seen by a Provider: 04:47 Subjective/Events-last exam Pt appears to be doing better. Sepsis Event Evaluation Height, Weight, BMI Height: 5'2.00" Weight: 190lbs. oz. 86.376695tp; 37.71 BMI Method:Stated Exam Exam Vital Signs Date Time Temp Pulse Resp B/P (MAP) Pulse Ox O2 Delivery O2 Flow Rate FiO2 08/13/20 03:35 98 Vapotherm 40.00 90 08/13/20 03:34 97 40.00 90.00 08/13/20 03:30 36.1 08/13/20 02:20 91 Vapotherm 40.00 100 08/13/20 01:00 70 31 145/83 (103) 92 Vapotherm 40.00 100.00 08/13/20 00:51 93 Vapotherm 40.00 100 08/13/20 00:46 36.3 08/13/20 00:00 68 30 115/67 (83) 89 Vapotherm 40.00 100.00 08/12/20 23:00 72 29 123/65 (84) 92 Vapotherm 40.00 100.00 08/12/20 22:30 94 Vapotherm 40.00 100 08/12/20 22:00 82 38 125/83 (97) 92 Vapotherm 40.00 100.00 08/12/20 21:30 36.8 81 28 143/95 95 Vapotherm 40.00 100 08/12/20 21:00 77 38 119/86 (97) 94 Vapotherm 40.00 100.00 08/12/20 20:20 91 Vapotherm 40.00 100 08/12/20 20:11 36.2 82 30 143/88 (106) 91 Vapotherm 40.00 100.00 08/12/20 20:10 36.8 82 30 143/88 91 Vapotherm 40.00 100 08/12/20 19:00 86 08/12/20 19:00 85 35 133/84 (100) 89 Vapotherm 40.00 100.00 08/12/20 18:45 91 Vapotherm 40.00 100 08/12/20 18:21 36.8 84 24 142/89 91 Vapotherm 40.00 100 08/12/20 18:18 36.8 90 26 145/87 88 Vapotherm 40.00 100 08/12/20 18:07 36.7 86 36 141/88 88 Vapotherm 40.00 100 08/12/20 18:00 81 45 153/93 (113) 95 Vapotherm 40.00 100.00 08/12/20 17:00 87 25 109/78 (88) 92 Vapotherm 40.00 100.00 08/12/20 16:51 36.9 08/12/20 16:45 90 Vapotherm 40.00 90 08/12/20 16:00 88 43 122/80 (94) 88 Vapotherm 40.00 100.00 08/12/20 15:02 94 Vapotherm 40.00 100 08/12/20 15:00 80 34 126/77 (93) 96 Vapotherm 40.00 100.00 08/12/20 14:00 82 42 106/66 (79) 91 Vapotherm 40.00 100.00 08/12/20 13:00 84 46 97/76 (83) 91 Vapotherm 40.00 100.00 08/12/20 12:59 84 08/12/20 12:00 89 30 112/77 (89) 90 Vapotherm 40.00 100.00 08/12/20 12:00 93 Vapotherm 30.00 90 08/12/20 11:51 Vapotherm 40.00 100.00 08/12/20 11:05 94 Vapotherm 40.00 100 08/12/20 11:00 89 43 119/76 (90) 92 Vapotherm 30.00 90.00 08/12/20 10:00 79 45 131/76 (94) 88 Vapotherm 30.00 90.00 08/12/20 09:00 78 41 128/83 (98) 87 Vapotherm 30.00 90.00 08/12/20 09:00 Vapotherm 30.00 90.00 08/12/20 08:00 96 Vapotherm 40.00 100 08/12/20 08:00 80 40 125/74 (91) 86 Vapotherm 30.00 90.00 08/12/20 07:49 Vapotherm 30.00 90.00 08/12/20 07:32 94 Vapotherm 30.00 90 08/12/20 07:00 75 33 121/70 (87) 96 Vapotherm 40.00 100.00 08/12/20 07:00 Vapotherm 40.00 100.00 08/12/20 06:45 81 08/12/20 06:00 67 37 115/73 (87) 90 Vapotherm 40.00 100.00 08/12/20 05:00 62 38 108/64 (79) 92 Vapotherm 40.00 100.00 I & O 08/13/20 07:00 Intake Total 1220 ml Output Total 3005 ml Balance -1785 ml Height & Weight Height: 5'2.00" Weight: 190lbs. oz. 86.070970oc; 37.71 BMI Method:Stated General Appearance: No Apparent Distress, WD/WN, Anxious, Chronically ill HEENT: PERRL/EOMI, Normal ENT Inspection, Pharynx Normal, Moist Mucous Membranes Neck: Full Range of Motion, Normal Inspection, Non Tender Respiratory: No Accessory Muscle Use, No Respiratory Distress, Decreased Breath Sounds Cardiovascular: Regular Rate, Rhythm Capillary Refill: Less Than 3 Seconds Gastrointestinal: normal bowel sounds, non tender, soft Extremity: Normal Capillary Refill, Normal Inspection, Normal Range of Motion, Non Tender, No Calf Tenderness, No Pedal Edema Neurologic/Psychiatric: Alert, Oriented x3, No Motor/Sensory Deficits, Normal Mood/Affect Skin: Normal Color, Warm/Dry Lymphatic: No Adenopathy Results Lab Laboratory Tests 08/11/20 05:30 08/12/20 03:05 08/13/20 03:35 Assessment/Plan Assessment/Plan Acute COVID-19 PNA with ARDS -- worsening hypoxia -Pt is now requiring Vapotherm - 90% -BiPAP PRN -- Did not tolerate BiPAP -Awake proning as tolerated -s/p CVP -Decadron 10mg daily - CXR -- CXR appears worse PNA -Continue Azithromycin, and Cefepime -Metcalf cultures pending Hypothroid -Home meds Anxiety GI/DVT ppx -continue Lovenox and protonix MARTY BERMUDEZ DO Aug 13, 2020 04:49
[2020-08-13] MEDS: LEVOTHYROXINE 75 MCG (LEVOTHROID) TABLET PO SCH (05:18)
[2020-08-13] MEDS: PANTOPRAZOLE 40 MG (PROTONIX) TAB PO SCH (05:18)
[2020-08-13] MEDS: ALPRAZolam 1 MG (XANAX) TAB PO PRN ×2 (05:28→16:44)
--- NOTE | 2020-08-13 07:38 | Diagnostic Imaging Report ---
INDICATION: Respiratory distress, COVID positive.. TECHNIQUE: Single view chest 3:25 AM. CORRELATION STUDY: 08/12/2020 FINDINGS: Right-sided central line tip at the caval atrial junction stable. Cardiac enlargement and prominent mediastinum. Extensive bilateral pulmonary opacities are again demonstrated. Remains most pronounced in central to upper aspect of the right lung base and central lower aspect of the left lung base. IMPRESSION: 1. Extensive multilobar infiltrate persisting. Stable to perhaps minimally improved. Dictated by: Dictated on workstation # [id number]
[2020-08-13] MEDS: ANIDULAFUNGIN INJECTION 100 MG in NS (IVPB) 100 ML IV SCH (09:32)
[2020-08-13] MEDS: polyethylene glycoL POWDER 17 GM (MIRALAX) PACK PO SCH ×2 (09:32→20:50)
[2020-08-13] MEDS: PROPRANOLOL 20 MG (INDERAL) TABLET PO SCH ×2 (09:32→20:48)
[2020-08-13] MEDS: FLUTICASONE NASAL SPRAY (FLONASE) 16 GM BTL NS SCH (09:32)
[2020-08-13] MEDS: AZITHROMYCIN INJECTION 500 MG in NS (IVPB) 250 ML IV SCH (09:32)
[2020-08-13] MEDS: FUROSEMIDE 40 MG/4 ML INJ (LASIX) IVP SCH (09:32)
[2020-08-13] MEDS: ENOXAPARIN 100 MG/1 ML (LOVENOX) SYR SC SCH ×2 (09:33→20:49)
[2020-08-13] MEDS ORDERED: MELATONIN 3 MG TABLET ONE (20:34)
[2020-08-13] MEDS: ACETAMINOPHEN 325 MG TABLET PO PRN (20:49)
[2020-08-13] MEDS: MELATONIN 3 MG TABLET PO SCH (20:49)
[2020-08-14] VITALS (23 sets, daily range): BP systolic 92–146; BP diastolic 57–77
[2020-08-14] MEDS: CEFEPIME INJECTION 1,000 MG in WATER (STERILE) FOR INJECTION 10 ML IV SCH ×4 (01:44→17:06)
[2020-08-14] MEDS: RT-ALBUTEROL INHALER HFA (VENTOLIN HFA) 18 GM IH SCH ×6 (02:15→22:05)
[2020-08-14 02:33] LABS: BASOPHILS % (AUTO) 0 % (0-10); EOSINOPHILS # (AUTO) 0.1 10^3/uL (0.0-0.3); EOSINOPHILS % (AUTO) 1 % (0-10); HEMATOCRIT 43 % (35-52); HEMOGLOBIN 13.8 g/dL (11.5-16.0); LYMPHOCYTES # (AUTO) 2.2 10^3/uL (1.0-4.0); LYMPHOCYTES % (AUTO) 19 % (12-44); MEAN CORPUSCULAR HEMOGLOBIN 31 pg (25-34); MEAN CORPUSCULAR HGB CONC 32 g/dL (32-36); MEAN CORPUSCULAR VOLUME 95 fL (80-99); MEAN PLATELET VOLUME 11.9 fL (9.0-12.2); MONOCYTES # (AUTO) 0.6 10^3/uL (0.0-1.0); MONOCYTES % (AUTO) 5 % (0-12); NEUTROPHILS # (AUTO) 8.3 10^3/uL (1.8-7.8); NEUTROPHILS % (AUTO) 72 % (42-75); PLATELET COUNT 256 10^3/uL (130-400); WHITE BLOOD COUNT 11.4 10^3/uL (4.3-11.0)
[2020-08-14 02:51] LABS: BUN/CREATININE RATIO 25; CALCIUM 8.5 MG/DL (8.5-10.1); CARBON DIOXIDE 28 MMOL/L (21-32); CHLORIDE 97 MMOL/L (98-107); CREATININE SERUM 0.75 MG/DL (0.60-1.30); GFR ESTIMATED > 60; GLUCOSE 85 MG/DL (70-105); MAGNESIUM 2.2 MG/DL (1.6-2.4); PHOSPHORUS 3.5 MG/DL (2.3-4.7); SODIUM 138 MMOL/L (135-145)
[2020-08-14] MEDS: ACETAMINOPHEN 325 MG TABLET PO PRN ×3 (03:04→20:47)
--- NOTE | 2020-08-14 05:00 | Pulmonary Progress Note ---
Subjective Time Seen by a Provider: 04:55 Subjective/Events-last exam Pt is still requiring 90% Vapotherm Sepsis Event Evaluation Height, Weight, BMI Height: 5'2.00" Weight: 190lbs. oz. 86.375627fx; 37.71 BMI Method:Stated Exam Exam Vital Signs Date Time Temp Pulse Resp B/P (MAP) Pulse Ox O2 Delivery O2 Flow Rate FiO2 08/14/20 02:15 93 Vapotherm 40.00 90 08/13/20 23:00 75 22 105/69 (81) 92 Vapotherm 40.00 90.00 08/13/20 22:54 93 Vapotherm 40.00 90 08/13/20 22:00 66 20 98/62 (74) 95 Vapotherm 40.00 90.00 08/13/20 21:00 85 21 118/71 (87) 90 Vapotherm 40.00 90.00 08/13/20 20:00 91 Vapotherm 40.00 90 08/13/20 20:00 77 20 128/69 (88) 93 Vapotherm 40.00 90.00 08/13/20 19:00 88 20 120/76 (91) 90 Vapotherm 40.00 90.00 08/13/20 19:00 88 08/13/20 18:30 94 Vapotherm 40.00 90 08/13/20 18:00 75 131/82 (98) 91 Vapotherm 40.00 90.00 08/13/20 17:00 82 37 120/74 (89) 92 Vapotherm 40.00 90.00 08/13/20 16:14 95 Vapotherm 40.00 90 08/13/20 16:00 84 28 111/78 (89) 92 Vapotherm 40.00 90.00 08/13/20 16:00 95 Vapotherm 40.00 90 08/13/20 15:00 87 35 155/97 (116) 95 Vapotherm 40.00 90.00 08/13/20 14:00 80 37 129/79 (96) 95 Vapotherm 40.00 90.00 08/13/20 13:00 75 36 117/89 (98) 93 Vapotherm 40.00 90.00 08/13/20 13:00 74 08/13/20 12:00 72 37 115/68 (84) 98 Vapotherm 40.00 90.00 08/13/20 12:00 95 Vapotherm 40.00 90 08/13/20 11:17 92 Vapotherm 40.00 90 08/13/20 11:00 80 38 122/79 (93) 93 Vapotherm 40.00 90.00 08/13/20 10:00 87 22 137/79 (98) 93 Vapotherm 40.00 90.00 08/13/20 09:00 78 35 134/85 (101) 94 Vapotherm 40.00 90.00 08/13/20 08:00 79 32 131/79 (96) 91 Vapotherm 40.00 90.00 08/13/20 08:00 93 Vapotherm 40.00 90 08/13/20 07:58 36.7 08/13/20 07:02 91 Vapotherm 40.00 90 08/13/20 07:00 71 08/13/20 07:00 73 32 128/79 (95) 92 Vapotherm 40.00 90.00 08/13/20 06:00 73 34 129/79 (96) 90 Vapotherm 40.00 90.00 08/13/20 05:00 71 28 132/80 (97) 91 Vapotherm 40.00 90.00 I & O 08/14/20 07:00 Intake Total 2200 ml Output Total 2450 ml Balance -250 ml Height & Weight Height: 5'2.00" Weight: 190lbs. oz. 86.708869fv; 37.71 BMI Method:Stated General Appearance: WD/WN, Anxious, Chronically ill, Mild Distress HEENT: PERRL/EOMI, Normal ENT Inspection, Pharynx Normal, Moist Mucous Membranes Neck: Full Range of Motion, Normal Inspection, Non Tender Respiratory: Crackles, Decreased Breath Sounds Cardiovascular: Regular Rate, Rhythm Capillary Refill: Less Than 3 Seconds Gastrointestinal: normal bowel sounds, non tender, soft Extremity: Normal Capillary Refill, Normal Inspection, Normal Range of Motion, Non Tender, No Calf Tenderness, No Pedal Edema Neurologic/Psychiatric: Alert, Oriented x3, No Motor/Sensory Deficits, Normal Mood/Affect Skin: Normal Color, Warm/Dry Lymphatic: No Adenopathy Results Lab Laboratory Tests 08/13/20 03:35 08/14/20 01:50 Assessment/Plan Assessment/Plan Acute COVID-19 PNA with ARDS -- worsening hypoxia -Pt is now requiring Vapotherm - 90% -BiPAP PRN -- Did not tolerate BiPAP -Awake proning as tolerated -s/p CVP -Decadron 10mg daily - CXR -- CXR appears worse Presumed PE -- DDIMer >20 -Continue theraputic dose Lovenox PNA -Repeat PCT -CXR - shows some improvement this morning -Continue Azithromycin, and Cefepime -Metcafl cultures pending Hypothroid -Home meds Anxiety GI/DVT ppx -continue Lovenox and protonix MARTY BERMUDEZ DO Aug 14, 2020 05:00
[2020-08-14] MEDS: LEVOTHYROXINE 75 MCG (LEVOTHROID) TABLET PO SCH (06:42)
[2020-08-14] MEDS: PANTOPRAZOLE 40 MG (PROTONIX) TAB PO SCH (06:42)
[2020-08-14] MEDS: ANIDULAFUNGIN INJECTION 100 MG in NS (IVPB) 100 ML IV SCH (08:09)
[2020-08-14] MEDS: AZITHROMYCIN INJECTION 500 MG in NS (IVPB) 250 ML IV SCH (08:09)
[2020-08-14] MEDS: PROPRANOLOL 20 MG (INDERAL) TABLET PO SCH ×2 (08:10→20:48)
[2020-08-14] MEDS: ENOXAPARIN 100 MG/1 ML (LOVENOX) SYR SC SCH ×2 (08:10→20:48)
[2020-08-14] MEDS: polyethylene glycoL POWDER 17 GM (MIRALAX) PACK PO SCH ×2 (08:10→20:48)
[2020-08-14] MEDS: FUROSEMIDE 40 MG/4 ML INJ (LASIX) IVP SCH (08:10)
[2020-08-14] MEDS: ALPRAZolam 1 MG (XANAX) TAB PO PRN ×2 (08:10→20:47)
[2020-08-14] MEDS: FLUTICASONE NASAL SPRAY (FLONASE) 16 GM BTL NS SCH (08:11)
[2020-08-14] MEDS ORDERED: KCL 20 MEQ TAB (K-DUR) PO ONE (09:00)
--- NOTE | 2020-08-14 09:43 | Diagnostic Imaging Report ---
INDICATION: COVID positive and respiratory distress. Comparison made with prior examination from 08/13/2020 FINDINGS: Heart size is normal. There has been some improvement in the bilateral pulmonary infiltrates. There is a left pleural effusion. There is no pneumothorax. PICC line has tip in superior vena cava. IMPRESSION: Some improvement in the bilateral pulmonary infiltrates. Some underlying venous congestion cannot be excluded. There is a small left pleural effusion. Dictated by: Dictated on workstation # [id number]
[2020-08-14] MEDS: MELATONIN 3 MG TABLET PO SCH (20:47)
[2020-08-14] MEDS ORDERED: diphenhydrAMINE 25 MG TAB (BENADRYL) PO PRN (23:45)
[2020-08-15] VITALS (24 sets, daily range): BP systolic 95–131; BP diastolic 57–88
[2020-08-15] MEDS: RT-ALBUTEROL INHALER HFA (VENTOLIN HFA) 18 GM IH SCH ×6 (02:09→21:41)
[2020-08-15 02:40] LABS: BASOPHILS % (AUTO) 0 % (0-10); EOSINOPHILS # (AUTO) 0.2 10^3/uL (0.0-0.3); EOSINOPHILS % (AUTO) 1 % (0-10); HEMATOCRIT 43 % (35-52); HEMOGLOBIN 14.2 g/dL (11.5-16.0); LYMPHOCYTES % (AUTO) 17 % (12-44); MEAN CORPUSCULAR HEMOGLOBIN 31 pg (25-34); MEAN CORPUSCULAR HGB CONC 33 g/dL (32-36); MEAN CORPUSCULAR VOLUME 94 fL (80-99); MEAN PLATELET VOLUME 11.3 fL (9.0-12.2); MONOCYTES # (AUTO) 0.7 10^3/uL (0.0-1.0); MONOCYTES % (AUTO) 6 % (0-12); NEUTROPHILS # (AUTO) 8.5 10^3/uL (1.8-7.8); NEUTROPHILS % (AUTO) 72 % (42-75); PLATELET COUNT 264 10^3/uL (130-400); WHITE BLOOD COUNT 11.7 10^3/uL (4.3-11.0)
[2020-08-15 03:01] LABS: BUN/CREATININE RATIO 28; CALCIUM 8.7 MG/DL (8.5-10.1); CARBON DIOXIDE 29 MMOL/L (21-32); CHLORIDE 96 MMOL/L (98-107); CREATININE SERUM 0.71 MG/DL (0.60-1.30); GFR ESTIMATED > 60; GLUCOSE 85 MG/DL (70-105); MAGNESIUM 2.3 MG/DL (1.6-2.4); PHOSPHORUS 3.5 MG/DL (2.3-4.7); POTASSIUM 4.1 MMOL/L (3.6-5.0); SODIUM 137 MMOL/L (135-145)
--- NOTE | 2020-08-15 05:16 | Pulmonary Progress Note ---
Subjective Time Seen by a Provider: 05:12 Subjective/Events-last exam Pt is still requiring high flow oxygen at 75% vapotherm. Sepsis Event Evaluation Height, Weight, BMI Height: 5'2.00" Weight: 190lbs. oz. 86.686466dw; 37.71 BMI Method:Stated Exam Exam Vital Signs Date Time Temp Pulse Resp B/P (MAP) Pulse Ox O2 Delivery O2 Flow Rate FiO2 08/15/20 04:00 92 Vapotherm 25.00 75 08/15/20 02:09 94 Vapotherm 25.00 75 08/15/20 01:00 61 08/14/20 23:59 92 Vapotherm 25.00 75 08/14/20 23:00 67 26 109/67 (81) 92 Vapotherm 25.00 75.00 08/14/20 22:05 93 Vapotherm 25.00 75 08/14/20 22:00 68 32 108/67 (81) 93 Vapotherm 25.00 75.00 08/14/20 21:00 84 29 118/77 (91) 93 Vapotherm 25.00 75.00 08/14/20 20:33 37.0 08/14/20 20:00 93 Vapotherm 25.00 75 08/14/20 20:00 82 32 122/75 (91) 92 Vapotherm 25.00 75.00 08/14/20 19:00 85 27 112/69 (83) 92 Vapotherm 25.00 75.00 08/14/20 19:00 86 08/14/20 18:13 92 Vapotherm 25.00 75 08/14/20 18:00 84 106/65 (79) Vapotherm 25.00 75.00 08/14/20 17:00 79 101/64 (76) 93 Vapotherm 25.00 75.00 08/14/20 16:00 91 Vapotherm 25.00 75 08/14/20 16:00 80 104/66 (79) 92 Vapotherm 25.00 75.00 08/14/20 15:35 35.7 08/14/20 15:00 87 38 104/72 (83) 91 Vapotherm 25.00 75.00 08/14/20 14:00 86 34 98/66 (77) 92 Vapotherm 25.00 75.00 08/14/20 13:00 89 32 108/73 (85) 93 Vapotherm 25.00 75.00 08/14/20 12:47 83 08/14/20 12:00 78 30 115/72 (86) 95 Vapotherm 25.00 75.00 08/14/20 11:56 35.9 Vapotherm 25.00 75.00 08/14/20 11:18 92 Vapotherm 25.00 80 08/14/20 11:16 25.00 80.00 08/14/20 11:00 75 31 105/70 (82) 90 Vapotherm 85.00 100.00 08/14/20 10:18 92 Vapotherm 25.00 80 08/14/20 10:00 73 28 103/73 (83) 91 Vapotherm 85.00 100.00 08/14/20 08:17 35.9 Vapotherm 25.00 100.00 08/14/20 08:00 91 Vapotherm 25.00 100 08/14/20 08:00 78 35 100/74 (83) 91 Vapotherm 20.00 90.00 08/14/20 07:30 Vapotherm 20.00 90.00 08/14/20 07:04 91 Vapotherm 25.00 90 08/14/20 07:00 82 31 124/74 (91) 90 Vapotherm 40.00 90.00 08/14/20 07:00 76 08/14/20 06:00 68 22 103/61 (75) 90 Vapotherm 40.00 90.00 I & O 08/15/20 07:00 Intake Total 2130 ml Output Total 2570 ml Balance -440 ml Height & Weight Height: 5'2.00" Weight: 190lbs. oz. 86.409728hn; 37.71 BMI Method:Stated General Appearance: WD/WN, Anxious, Chronically ill, Mild Distress HEENT: PERRL/EOMI, Normal ENT Inspection, Pharynx Normal, Moist Mucous Membranes Neck: Full Range of Motion, Normal Inspection, Non Tender Respiratory: Crackles, Decreased Breath Sounds Cardiovascular: Regular Rate, Rhythm Capillary Refill: Less Than 3 Seconds Gastrointestinal: normal bowel sounds, non tender, soft Extremity: Normal Capillary Refill, Normal Inspection, Normal Range of Motion, Non Tender, No Calf Tenderness, No Pedal Edema Neurologic/Psychiatric: Alert, Oriented x3, No Motor/Sensory Deficits, Normal Mood/Affect Skin: Normal Color, Warm/Dry Lymphatic: No Adenopathy Results Lab Laboratory Tests 08/14/20 01:50 08/15/20 02:32 Assessment/Plan Assessment/Plan Acute COVID-19 PNA with ARDS -- worsening hypoxia -Pt is now requiring Vapotherm - 75% -BiPAP PRN -- Did not tolerate BiPAP -Awake proning as tolerated -s/p CVP -Decrease Lasix to 20mg daily -Decadron 10mg daily - CXR -- CXR appears worse Presumed PE -- DDIMer >20 -Continue theraputic dose Lovenox PNA -Repeat PCT -CXR - shows some improvement this morning -Continue Eraxis and Cefepime -Metcalf cultures pending Hypothroid -Home meds Anxiety GI/DVT ppx -continue Lovenox and protonix MARTY BERMUDEZ DO Aug 15, 2020 05:16
[2020-08-15] MEDS: LEVOTHYROXINE 75 MCG (LEVOTHROID) TABLET PO SCH (06:07)
[2020-08-15] MEDS: CEFEPIME INJECTION 1,000 MG in WATER (STERILE) FOR INJECTION 10 ML IV SCH ×6 (06:07→22:56)
--- NOTE | 2020-08-15 06:26 | Diagnostic Imaging Report ---
EXAMINATION: Portable erect AP chest at 4:23 AM INDICATION: Respiratory distress, COVID. The heart is enlarged but stable in size when compared to the prior exam of 08/14/2020. The alveolar/interstitial pulmonary infiltrates involving both lungs seen previously are again evident and not significantly changed. The mediastinum is not widened. The osseous structures are intact. The central venous catheter on the right is unchanged in position. IMPRESSION: Stable chest. There has been no significant change since the prior exam. Dictated by: Dictated on workstation # [id number]
[2020-08-15] MEDS: PANTOPRAZOLE 40 MG (PROTONIX) TAB PO SCH (07:44)
[2020-08-15] MEDS: polyethylene glycoL POWDER 17 GM (MIRALAX) PACK PO SCH ×2 (08:17→19:54)
[2020-08-15] MEDS: FLUTICASONE NASAL SPRAY (FLONASE) 16 GM BTL NS SCH (08:23)
[2020-08-15] MEDS: ENOXAPARIN 100 MG/1 ML (LOVENOX) SYR SC SCH ×2 (08:23→20:02)
[2020-08-15] MEDS: ANIDULAFUNGIN INJECTION 100 MG in NS (IVPB) 100 ML IV SCH (08:24)
[2020-08-15] MEDS: PROPRANOLOL 20 MG (INDERAL) TABLET PO SCH ×2 (08:24→20:01)
[2020-08-15] MEDS: ALPRAZolam 1 MG (XANAX) TAB PO PRN ×2 (08:30→20:01)
[2020-08-15] MEDS ORDERED: FUROSEMIDE 40 MG/4 ML INJ (LASIX) IVP SCH (09:00)
[2020-08-15] MEDS: ACETAMINOPHEN 325 MG TABLET PO PRN (18:33)
--- NOTE | 2020-08-15 19:03 | Progress Note - Hospitalist ---
Subjective HPI/CC On Admission Date Seen by Provider: Aug 15, 2020 Time Seen by Provider: 11:00 CC: SOB due to Covid HPI: This is a 55yoWF clinic Pt of Katia Lee who was diagnosed with Covid ten days ago, who presented with SOB on exertion, she went to the ER at [facility] on Sunday, given IV fluid and sent home, but then she worsened, went to Urgent Care and was subsequently hospitalized. Overall she feels much better, but still having some difficulty with oxygenation during exertion. I did restart her home medication of Propanolol, Xanax and Synthroid. Subjective/Events-last exam Patient feels good Out of isolation now Vapotherm maintained BM+ Monitoring closely Reviewed labs and CXR can visit her today Review of Systems General: Fatigue, Malaise Neurological: Weakness Objective Exam Vital Signs Vital Signs Date Time Temp Pulse Resp B/P (MAP) Pulse Ox O2 Delivery O2 Flow Rate FiO2 08/15/20 18:25 91 Vapotherm 20.00 75 08/15/20 18:00 89 43 123/74 (90) 08/15/20 15:03 36.4 Capillary Refill : Less Than 3 Seconds General Appearance: No Apparent Distress, WD/WN, Chronically ill, Obese Respiratory: Lungs Clear Cardiovascular: Regular Rate, Rhythm Neurologic/Psychiatric: Alert, Oriented x3, No Motor/Sensory Deficits, Normal Mood/Affect Results/Procedures Lab Laboratory Tests 08/15/20 02:32 Patient resulted labs reviewed. Assessment/Plan Assessment and Plan Assess & Plan/Chief Complaint Assessment: COVID-19 PNA Hypoxia Hypothyroidism Anxiety Plan: O2 Supportive care Monitor closely 08/10/20: Consult Dr Cohen Added abx Updated while in room with patient 08/11/20: ICU BiPAP Vapotherm 08/12/20: Vapotherm ICU 08/15/20: Out of isolation Vapotherm Monitor closely JEB JOHNSON DO Aug 15, 2020 19:03
[2020-08-15] MEDS: MELATONIN 3 MG TABLET PO SCH (20:01)
[2020-08-16] VITALS (23 sets, daily range): BP systolic 96–138; BP diastolic 56–79
[2020-08-16 01:12] LABS: BASOPHILS % (AUTO) 0 % (0-10); EOSINOPHILS # (AUTO) 0.2 10^3/uL (0.0-0.3); EOSINOPHILS % (AUTO) 2 % (0-10); HEMATOCRIT 41 % (35-52); HEMOGLOBIN 13.4 g/dL (11.5-16.0); LYMPHOCYTES # (AUTO) 1.5 10^3/uL (1.0-4.0); LYMPHOCYTES % (AUTO) 16 % (12-44); MEAN CORPUSCULAR HEMOGLOBIN 31 pg (25-34); MEAN CORPUSCULAR HGB CONC 33 g/dL (32-36); MEAN CORPUSCULAR VOLUME 94 fL (80-99); MEAN PLATELET VOLUME 11.3 fL (9.0-12.2); MONOCYTES # (AUTO) 0.6 10^3/uL (0.0-1.0); MONOCYTES % (AUTO) 6 % (0-12); NEUTROPHILS # (AUTO) 7.2 10^3/uL (1.8-7.8); NEUTROPHILS % (AUTO) 73 % (42-75); PLATELET COUNT 238 10^3/uL (130-400); WHITE BLOOD COUNT 9.9 10^3/uL (4.3-11.0)
[2020-08-16 01:31] LABS: BUN/CREATININE RATIO 26; CALCIUM 8.6 MG/DL (8.5-10.1); CARBON DIOXIDE 29 MMOL/L (21-32); CHLORIDE 95 MMOL/L (98-107); GFR ESTIMATED > 60; GLUCOSE 99 MG/DL (70-105); MAGNESIUM 2.3 MG/DL (1.6-2.4); PHOSPHORUS 3.8 MG/DL (2.3-4.7); POTASSIUM 4.1 MMOL/L (3.6-5.0); SODIUM 136 MMOL/L (135-145)
[2020-08-16] MEDS: RT-ALBUTEROL INHALER HFA (VENTOLIN HFA) 18 GM IH SCH ×6 (02:10→22:00)
--- NOTE | 2020-08-16 04:07 | Pulmonary Progress Note ---
Subjective Time Seen by a Provider: 04:05 Sepsis Event Evaluation Height, Weight, BMI Height: 5'2.00" Weight: 190lbs. oz. 86.168229yb; 37.71 BMI Method:Stated Exam Exam Vital Signs Date Time Temp Pulse Resp B/P (MAP) Pulse Ox O2 Delivery O2 Flow Rate FiO2 08/16/20 03:25 94 Vapotherm 20.00 75 08/16/20 02:10 93 Vapotherm 20.00 75 08/16/20 01:00 70 08/15/20 23:12 94 Vapotherm 20.00 75 08/15/20 23:12 36.2 08/15/20 23:00 65 23 113/67 (82) 92 Vapotherm 20.00 70.00 08/15/20 22:00 73 30 99/61 (74) 92 Vapotherm 20.00 70.00 08/15/20 21:41 93 Vapotherm 20.00 75 08/15/20 21:00 77 27 106/65 (79) 92 Vapotherm 20.00 70.00 08/15/20 20:00 85 32 122/72 (89) 93 Vapotherm 20.00 70.00 08/15/20 20:00 94 Vapotherm 20.00 75 08/15/20 19:17 36.1 08/15/20 19:00 36.2 Vapotherm 20.00 75.00 08/15/20 19:00 94 08/15/20 19:00 92 38 116/68 (84) 91 Vapotherm 20.00 70.00 08/15/20 18:25 91 Vapotherm 20.00 75 08/15/20 18:00 89 43 123/74 (90) 93 Vapotherm 20.00 70.00 08/15/20 17:00 89 22 119/86 (97) 93 Vapotherm 20.00 70.00 08/15/20 16:07 92 Vapotherm 20.00 70 08/15/20 16:00 89 41 116/85 (95) 93 Vapotherm 20.00 70.00 08/15/20 15:03 36.4 08/15/20 15:00 92 33 116/64 (81) 94 Vapotherm 20.00 70.00 08/15/20 14:38 94 Vapotherm 20.00 70 08/15/20 14:00 89 40 120/68 (85) 93 Vapotherm 20.00 70.00 08/15/20 13:00 92 33 111/70 (84) 93 Vapotherm 20.00 70.00 08/15/20 13:00 89 08/15/20 12:17 93 Vapotherm 20.00 70 08/15/20 12:00 85 31 107/70 (82) 93 Vapotherm 20.00 70.00 08/15/20 11:46 Vapotherm 20.00 70.00 08/15/20 11:21 Vapotherm 20.00 75.00 08/15/20 11:00 101 38 131/88 (102) 95 Vapotherm 25.00 75.00 08/15/20 10:28 91 Vapotherm 25.00 75 08/15/20 10:00 89 17 95/59 (71) 92 Vapotherm 25.00 75.00 08/15/20 09:00 91 32 114/80 (91) 91 Vapotherm 25.00 75.00 08/15/20 08:00 87 12 107/66 (80) 90 Vapotherm 25.00 75.00 08/15/20 07:59 90 Vapotherm 25.00 75 08/15/20 07:36 36.2 08/15/20 07:00 86 08/15/20 07:00 80 33 95/61 (72) 90 Vapotherm 25.00 75.00 08/15/20 06:00 60 27 97/61 (73) 91 Vapotherm 25.00 75.00 08/15/20 05:00 65 26 102/57 (72) 91 Vapotherm 25.00 75.00 I & O 08/16/20 07:00 Intake Total 1835 ml Output Total 1980 ml Balance -145 ml Height & Weight Height: 5'2.00" Weight: 190lbs. oz. 86.614515oj; 37.71 BMI Method:Stated General Appearance: No Apparent Distress, WD/WN, Chronically ill, Obese HEENT: PERRL/EOMI, Normal ENT Inspection, Pharynx Normal, Moist Mucous Membranes Neck: Full Range of Motion, Normal Inspection, Non Tender Respiratory: Lungs Clear Cardiovascular: Regular Rate, Rhythm Capillary Refill: Less Than 3 Seconds Gastrointestinal: normal bowel sounds, non tender, soft Extremity: Normal Capillary Refill, Normal Inspection, Normal Range of Motion, Non Tender, No Calf Tenderness, No Pedal Edema Neurologic/Psychiatric: Alert, Oriented x3, No Motor/Sensory Deficits, Normal Mood/Affect Skin: Normal Color, Warm/Dry Lymphatic: No Adenopathy Results Lab Laboratory Tests 08/15/20 02:32 08/16/20 01:05 Assessment/Plan Assessment/Plan Acute COVID-19 PNA with ARDS -- worsening hypoxia -Pt is now requiring Vapotherm - 75% -BiPAP PRN -- Did not tolerate BiPAP -Awake proning as tolerated -s/p CVP -Decrease Lasix to 20mg daily -Decadron 10mg daily - CXR -- CXR appears worse Presumed PE -- DDIMer >20 -Continue theraputic dose Lovenox PNA -Repeat PCT -CXR - shows some improvement this morning -Continue Eraxis and Cefepime -Metcalf cultures pending Hypothroid -Home meds Anxiety GI/DVT ppx -continue Lovenox and protonix MARTY BERMUDEZ DO Aug 16, 2020 04:07
[2020-08-16] MEDS: LEVOTHYROXINE 75 MCG (LEVOTHROID) TABLET PO SCH (04:59)
[2020-08-16] MEDS: CEFEPIME INJECTION 1,000 MG in WATER (STERILE) FOR INJECTION 10 ML IV SCH ×4 (04:59→23:12)
[2020-08-16] MEDS: PANTOPRAZOLE 40 MG (PROTONIX) TAB PO SCH ×2 (04:59→09:07)
[2020-08-16] MEDS: ALPRAZolam 1 MG (XANAX) TAB PO PRN ×2 (05:05→19:49)
--- NOTE | 2020-08-16 07:41 | Diagnostic Imaging Report ---
EXAMINATION: Chest 1 view HISTORY: COVID infection. Followup. COMPARISON: 08/15/2020. FINDINGS: Stable right PICC. Slight decrease in lung volumes compared to the prior exam. Stable patchy opacities are seen throughout the lungs. No large pleural effusion or pneumothorax. Stable prominent cardiac silhouette. IMPRESSION: 1. Stable opacities throughout the lungs with interval decrease in lung volumes. Dictated by: Dictated on workstation # [id number]
[2020-08-16] MEDS: ENOXAPARIN 100 MG/1 ML (LOVENOX) SYR SC SCH ×2 (09:06→20:37)
[2020-08-16] MEDS: polyethylene glycoL POWDER 17 GM (MIRALAX) PACK PO SCH ×2 (09:07→20:42)
[2020-08-16] MEDS: FUROSEMIDE 40 MG/4 ML INJ (LASIX) IVP SCH ×2 (09:07→20:37)
[2020-08-16] MEDS: PROPRANOLOL 20 MG (INDERAL) TABLET PO SCH ×2 (09:07→20:37)
[2020-08-16] MEDS: FLUTICASONE NASAL SPRAY (FLONASE) 16 GM BTL NS SCH (09:08)
--- NOTE | 2020-08-16 10:18 | Physical Therapy Evaluation ---
PT Evaluation-General Medical Diagnosis Admission Date Aug 08, 2020 at 17:00 Medical Diagnosis: Covid/acute respiratory failure Onset Date: Aug 08, 2020 Therapy Diagnosis Therapy Diagnosis: debility/weakness Height/Weight Height (Feet): 5 Height (Inches): 2.00 Weight (Pounds): 190 Precautions Precautions/Isolations: Fall Prevention, Standard Precautions Referral Physician: Vicki Reason for Referral: Evaluation/Treatment Medical History Pertinent Medical History: Hypothroidism Current History ER secondary to N&V and SOA due to covid (08/02/20 + for Covid) Reviewed History: Yes Social History Home: Single Level Current Living Status: Spouse Prior Prior Level of Function SCALE: Activities may be completed with or without assistive devices. 2-Efmflkpcff-wmllhjb completes the activity by him/herself with no assistance from a helper. 5-Set-up or Clean-up Assistance-helper sets up or cleans up; patient completes activity. [place] assists only prior to or following the activity. 4-Supervision or Touching Assistance-helper provides verbal cues and/or touc izzy/steadying and/or contact guard assistance as patient completes activity. Assistance may be provided throughout the activity or intermittently. 3-Partial/Moderate Assistance-helper does LESS THAN HALF the effort. [place] lifts, holds or supports trunk or limbs, but provides less than half the effort. 2-Substantial/Maximal Assistance-helper does MORE THAN HALF the effort. [place] lifts or holds trunk or limbs and provides more than half the effort. 3-Lactygllc-pzhtiz does ALL the effort. Patient does none of the effort to complete the activity. Or, the assistance of 2 or more helpers is required for the patient to complete the activity. If activity was not attempted, code reason: 7-Patient Refused. 9-Not Applicable-not attempted and the patient did not perform the activity before the current illness, exacerbation or injury. 10-Not Attempted due to Environmental Limitations-(lack of equipment, weather restraints, etc.). 88-Not Attempted due to Medical Conditions or Safety Concerns. Bed Mobility: 6 Transfers (B,C,W/C): 6 Gait: 6 Stairs: 6 Indoor Mobility (Ambulation): Independent Stairs: Independent Prior Devices Use: None PT Evaluation-Current Subjective Patient agrees to PT. Objective Patient Orientation: Normal For Age Attachments: Oxygen (Vapotherm), Mendez Catheter ROM/Strength ROM Lower Extremities bilateral LE WFL Strength Lower Extremities 4/5 grossly bilateral LE Integumentary/Posture Integumentary refer to nursing notes Bowel Incontinence: No Bladder Incontinence: Mendez Cath Posture WFL Neuromuscular (Tone, Coordination, Reflexes) grossly intact Sensory Vision: Functional Hearing: Functional Sensation Right Lower Extremit: Intact Sensation Left Lower Extremity: Intact Transfers Roll Left to Right (QC): 6 Sit to Lying (QC): 6 Lying to Sitting/Side of Bed(Q: 6 Sit to Stand (QC): 4 Chair/Pdw-vh-Jjrvj Xfer(QC): 4 Gait Does the Patient Walk?: Yes Mode of Locomotion: Walk Anticipated Mode of Locomotion: Walk Walk 10 feet (QC): 4 Walk 50 ft with 2 Turns(QC): 88 Walk 150 ft (QC): 88 Gait Assistive Device: FWW Comments/Gait Description functional gait sequence Wheelchair Training Does the Pt Use a Wheelchair?: No Balance Sitting Static: Normal Sitting Dynamic: Normal Standing Static: Fair Standing Dynamic: Fair Assessment/Needs 55 y.o. female, will benefit from skilled PT to address functional strength and mobility to improve current LOF to safely return to home at maximum LOF. Patient does have c/o dizziness with positional change. 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 PT Professor Of Art History Goals Time Frame: Aug 28, 2020 Roll Left & Right (QC): 6 Sit to Lying (QC): 6 Lying-Sitting on Side/Bed(QC): 6 Sit to Stand (QC): 6 Chair/Tvm-vg-Frzus Xfer(QC): 6 Toilet Transfer (QC): 6 Does the Patient Walk: Yes Walk 10 feet (QC): 6 Walk 50ft with 2 Turns (QC): 6 Walk 150 ft (QC): 6 PT Plan Problem List Problem List: Activity Tolerance, Functional Strength, Balance, Gait Treatment/Plan Treatment Plan: Continue Plan of Care Treatment Plan: Bed Mobility, Education, Functional Activity [place], Functional Strength, Gait, Safety, Therapeutic Exercise, Transfers Treatment Duration: Aug 28, 2020 Frequency: 6 times per week Estimated Hrs Per Day: .25 hour per day Patient and/or Family Agrees t: Yes Discharge Recommendations Therapy Discharge Recommendati: Home & Family Time/GCodes Time In: 921 Time Out: 931 Total Billed Treatment Time: 10 [facility] S[facility] PT Aug 16, 2020 10:18
[2020-08-16] MEDS: ANIDULAFUNGIN INJECTION 100 MG in NS (IVPB) 100 ML IV SCH (12:12)
--- NOTE | 2020-08-16 17:46 | Progress Note ---
Subjective Subjective/Events-last exam Patient is feeling better. Sitting up in chair this AM. Tolerating PO diet Review of Systems General: Fatigue, Malaise Pulmonary: Dyspnea, Cough Cardiovascular: Edema; No: Chest Pain, Palpitations Gastrointestinal: No: Nausea, Vomiting, Abdominal Pain, Diarrhea, Constipation Genitourinary: No Dysuria, No Frequency, No Incontinence Neurological: Weakness, Incoordination Objective Exam Last Set of Vital Signs Vital Signs Date Time Temp Pulse Resp B/P (MAP) Pulse Ox O2 Delivery O2 Flow Rate FiO2 08/16/20 17:00 80 32 114/64 (81) 92 Vapotherm 20.00 75.00 08/16/20 16:30 75 08/16/20 16:28 36.0 Capillary Refill : Less Than 3 Seconds I&O Intake and Output 08/16/20 00:00 Intake Total 2060 ml Output Total 2130 ml Balance -70 ml Intake Oral 2060 ml Output Urine Total 2130 ml General: Alert, Oriented X3, Cooperative, Mild Distress (with any activity) HEENT: Mucous Memb Moist/[place] Lungs: Other (diminished breath sounds, basilar wheezing, increased work of breathing with activity) Heart: Regular Rate, No Murmurs Abdomen: Normal Bowel Sounds, Soft, No Tenderness, No Masses Extremities: No Edema, No Tenderness/Swelling Skin: No Rashes Neuro: Normal Speech, Sensation Intact, Cranial Nerves 3-12 NL Results/Procedures Lab Laboratory Tests 08/16/20 01:05: White Blood Count 9.9, Red Blood Count 4.34, Hemoglobin 13.4, Hematocrit 41, Me an Corpuscular Volume 94, Mean Corpuscular Hemoglobin 31, Mean Corpuscular Hemoglobin Concent 33, Red Cell Distribution Width 12.1, Platelet Count 238, Mean Platelet Volume 11.3, Immature Granulocyte % (Auto) 3, Neutrophils (%) (Auto) 73, Lymphocytes (%) (Auto) 16, Monocytes (%) (Auto) 6, Eosinophils (%) (Auto) 2, Basophils (%) (Auto) 0, Neutrophils # (Auto) 7.2, Lymphocytes # (Auto) 1.5, Monocytes # (Auto) 0.6, Eosinophils # (Auto) 0.2, Basophils # (Auto) 0.0, Immature Granulocyte # (Auto) 0.3H, Sodium Level 136, Potassium Level 4.1, Chloride Level 95L, Carbon Dioxide Level 29, Anion Gap 12, Blood Urea Nitrogen 18, Creatinine 0.70, Estimat Glomerular Filtration Rate > 60, BUN/Creatinine Ratio 26, Glucose Level 99, Calcium Level 8.6, Phosphorus Level 3.8, Magnesium Level 2.3 Microbiology 08/11/20 MRSA Screen - Final, Complete MRSA not isolated 08/08/20 Blood Culture - Final, Complete No growth Assessment/Plan Assessment/Plan (1) Acute respiratory failure with hypoxia Status: Acute Assessment & Plan: 08/16: Patient stable on Vapotherm, will continue to titrate as tolerated, continue PT/OT to work on debility (2) Sepsis Status: Acute Qualifiers: Qualified Codes: A41.9 - Sepsis, unspecified organism; R65.20 - Severe sepsis without septic shock; J96.01 - Acute respiratory failure with hypoxia (3) Severe acute respiratory syndrome coronavirus 2 (SARS-CoV-2) detected Status: Acute (4) Hypothyroidism Status: Chronic Assessment & Plan: 08/16: Continue home dosing Qualifiers: Qualified Codes: E03.9 - Hypothyroidism, unspecified (5) Elevated d-dimer Status: Acute Assessment & Plan: 08/16: Presumed PE, Continue treatment dosing on lovenox, bleeding precautions (6) DVT prophylaxis Status: Acute Assessment & Plan: - On treatment dose of lovenox JENNIFER ACEVEDO MD Aug 16, 2020 17:46
[2020-08-16] MEDS: ACETAMINOPHEN 325 MG TABLET PO PRN (19:49)
[2020-08-16] MEDS: MELATONIN 3 MG TABLET PO SCH (20:41)
[2020-08-17] VITALS (13 sets, daily range): BP systolic 94–129; BP diastolic 55–75
[2020-08-17] MEDS: RT-ALBUTEROL INHALER HFA (VENTOLIN HFA) 18 GM IH SCH ×4 (02:00→15:35)
[2020-08-17 03:20] LABS: BASOPHILS % (AUTO) 0 % (0-10); EOSINOPHILS # (AUTO) 0.4 10^3/uL (0.0-0.3); EOSINOPHILS % (AUTO) 3 % (0-10); HEMATOCRIT 41 % (35-52); HEMOGLOBIN 13.5 g/dL (11.5-16.0); LYMPHOCYTES # (AUTO) 2.2 10^3/uL (1.0-4.0); LYMPHOCYTES % (AUTO) 20 % (12-44); MEAN CORPUSCULAR HEMOGLOBIN 31 pg (25-34); MEAN CORPUSCULAR HGB CONC 33 g/dL (32-36); MEAN CORPUSCULAR VOLUME 94 fL (80-99); MEAN PLATELET VOLUME 11.5 fL (9.0-12.2); MONOCYTES # (AUTO) 0.8 10^3/uL (0.0-1.0); MONOCYTES % (AUTO) 7 % (0-12); NEUTROPHILS # (AUTO) 7.6 10^3/uL (1.8-7.8); NEUTROPHILS % (AUTO) 68 % (42-75); PLATELET COUNT 257 10^3/uL (130-400); WHITE BLOOD COUNT 11.2 10^3/uL (4.3-11.0)
[2020-08-17 03:36] LABS: CHLORIDE 95 MMOL/L (98-107); POTASSIUM 3.8 MMOL/L (3.6-5.0); SODIUM 137 MMOL/L (135-145)
[2020-08-17 03:37] LABS: CALCIUM 8.3 MG/DL (8.5-10.1); GLUCOSE 91 MG/DL (70-105)
[2020-08-17 03:39] LABS: CARBON DIOXIDE 28 MMOL/L (21-32)
[2020-08-17 03:41] LABS: CREATININE SERUM 0.71 MG/DL (0.60-1.30); GFR ESTIMATED > 60; PHOSPHORUS 3.5 MG/DL (2.3-4.7)
[2020-08-17 03:42] LABS: BUN/CREATININE RATIO 25
[2020-08-17 03:43] LABS: MAGNESIUM 2.2 MG/DL (1.6-2.4)
--- NOTE | 2020-08-17 05:00 | Pulmonary Progress Note ---
Subjective Time Seen by a Provider: 04:59 Subjective/Events-last exam Pt is now on highflow NC Sepsis Event Evaluation Height, Weight, BMI Height: 5'2.00" Weight: 190lbs. oz. 86.172798cf; 37.71 BMI Method:Stated Exam Exam Vital Signs Date Time Temp Pulse Resp B/P (MAP) Pulse Ox O2 Delivery O2 Flow Rate FiO2 08/17/20 04:00 72 16 107/61 (73) 91 High Flow N/C 8.00 08/17/20 03:10 93 High Flow N/C 8.00 08/17/20 03:00 64 39 99/63 (77) 92 High Flow N/C 8.00 08/17/20 02:00 76 18 108/71 (78) 92 High Flow N/C 8.00 08/17/20 01:00 75 08/17/20 01:00 67 24 95/75 (82) 94 High Flow N/C 8.00 08/17/20 00:00 73 23 114/69 (87) 96 High Flow N/C 8.00 08/16/20 23:18 High Flow N/C 8.00 08/16/20 23:10 94 High Flow N/C 10.00 08/16/20 23:10 36.5 High Flow N/C 10.00 08/16/20 23:09 73 17 104/62 (83) 96 High Flow N/C 10.00 08/16/20 22:23 High Flow N/C 10.00 08/16/20 22:09 High Flow N/C 8.00 08/16/20 22:00 73 35 96/57 (70) 91 High Flow N/C 7.00 08/16/20 21:24 High Flow N/C 7.00 08/16/20 21:00 75 31 112/65 (80) 95 High Flow N/C 8.00 08/16/20 20:37 36.9 08/16/20 20:36 High Flow N/C 8.00 08/16/20 20:00 84 26 124/58 (80) 90 High Flow N/C 10.00 08/16/20 20:00 High Flow N/C 10.00 08/16/20 19:59 High Flow N/C 10.00 08/16/20 19:30 High Flow N/C 8.00 08/16/20 19:00 82 36 138/73 (94) 91 Vapotherm 20.00 75.00 08/16/20 19:00 Vapotherm 20.00 75.00 08/16/20 19:00 82 08/16/20 18:00 82 30 130/77 (94) 92 Vapotherm 20.00 75.00 08/16/20 17:00 80 32 114/64 (81) 92 Vapotherm 20.00 75.00 08/16/20 16:30 95 Vapotherm 20.00 75 08/16/20 16:28 36.0 08/16/20 16:00 78 16 113/76 (88) 92 Vapotherm 20.00 75.00 08/16/20 15:00 82 123/70 (87) 92 Vapotherm 20.00 75.00 08/16/20 14:36 92 Vapotherm 15.00 60 08/16/20 14:00 78 45 127/77 (94) 93 Vapotherm 20.00 75.00 08/16/20 13:00 78 26 118/67 (84) 94 Vapotherm 20.00 75.00 08/16/20 12:30 95 Vapotherm 20.00 75 08/16/20 12:28 80 08/16/20 12:00 77 22 104/79 (87) 91 Vapotherm 20.00 75.00 08/16/20 11:35 36.6 08/16/20 11:00 87 38 107/69 (82) 93 Vapotherm 20.00 75.00 08/16/20 10:28 94 Vapotherm 20.00 75 08/16/20 10:00 87 28 93 Vapotherm 20.00 75.00 08/16/20 09:00 79 35 112/67 (82) 91 Vapotherm 20.00 75.00 08/16/20 08:45 95 Vapotherm 20.00 75 08/16/20 08:00 75 36 102/62 (75) 92 Vapotherm 20.00 75.00 08/16/20 08:00 36.1 08/16/20 07:00 68 25 97/56 (70) 90 Vapotherm 20.00 75.00 08/16/20 06:36 84 08/16/20 06:05 90 Vapotherm 20.00 75 08/16/20 06:00 68 25 98/61 (73) 90 Vapotherm 20.00 75.00 08/16/20 05:06 Vapotherm 20.00 75.00 08/16/20 05:00 70 29 113/68 (83) 92 Vapotherm 25.00 80.00 I & O 08/17/20 06:59 Intake Total 1510 ml Output Total 1925 ml Balance -415 ml Height & Weight Height: 5'2.00" Weight: 190lbs. oz. 86.310115at; 37.71 BMI Method:Stated General Appearance: No Apparent Distress, WD/WN, Chronically ill, Obese HEENT: PERRL/EOMI, Normal ENT Inspection, Pharynx Normal, Moist Mucous Membranes Neck: Full Range of Motion, Normal Inspection, Non Tender Respiratory: Lungs Clear Cardiovascular: Regular Rate, Rhythm Capillary Refill: Less Than 3 Seconds Gastrointestinal: normal bowel sounds, non tender, soft Extremity: Normal Capillary Refill, Normal Inspection, Normal Range of Motion, Non Tender, No Calf Tenderness, No Pedal Edema Neurologic/Psychiatric: Alert, Oriented x3, No Motor/Sensory Deficits, Normal Mood/Affect Skin: Normal Color, Warm/Dry Lymphatic: No Adenopathy Results Lab Laboratory Tests 08/16/20 01:05 08/17/20 03:05 Assessment/Plan Assessment/Plan Acute COVID-19 PNA with ARDS -- worsening hypoxia -Pt is now on high flow NC at 8 liters -BiPAP PRN -- Did not tolerate BiPAP -Awake proning as tolerated -s/p CVP - Lasix to 20mg daily -Decadron 10mg daily - CXR -- CXR appears worse Presumed PE -- DDIMer >20 -Continue theraputic dose Lovenox PNA -Repeat PCT -CXR - shows some improvement this morning -Continue Eraxis and Cefepime -Metcalf cultures pending Hypothroid -Home meds Anxiety GI/DVT ppx -continue Lovenox and protonix MARTY BERMUDEZ DO Aug 17, 2020 05:00
[2020-08-17] MEDS: LEVOTHYROXINE 75 MCG (LEVOTHROID) TABLET PO SCH (05:42)
[2020-08-17] MEDS: PANTOPRAZOLE 40 MG (PROTONIX) TAB PO SCH (05:42)
[2020-08-17] MEDS: CEFEPIME INJECTION 1,000 MG in WATER (STERILE) FOR INJECTION 10 ML IV SCH ×3 (05:42→18:58)
--- NOTE | 2020-08-17 05:50 | Diagnostic Imaging Report ---
Portable erect AP chest at 345 hours. INDICATION: Respiratory distress, Covid-19. FINDINGS: The heart size is stable when compared to the prior exam of 08/16/2020. The alveolar/interstitial pulmonary infiltrates involving both lungs seem previously are again evident and not significantly changed. If anything, the lungs may be slightly better aerated. There is still no sign of a pleural effusion. The mediastinum is not widened. The osseous structures are intact. The right-sided Port-A-Cath remains in good position. IMPRESSION: Stable chest. There has been no significant change since the prior exam. Dictated by: Dictated on workstation # [id number]
[2020-08-17] MEDS: PROPRANOLOL 20 MG (INDERAL) TABLET PO SCH ×2 (08:38→21:13)
[2020-08-17] MEDS: ENOXAPARIN 100 MG/1 ML (LOVENOX) SYR SC SCH ×2 (08:38→21:14)
[2020-08-17] MEDS: ANIDULAFUNGIN INJECTION 100 MG in NS (IVPB) 100 ML IV SCH (08:38)
[2020-08-17] MEDS: FUROSEMIDE 40 MG/4 ML INJ (LASIX) IVP SCH ×2 (08:38→21:13)
[2020-08-17] MEDS: polyethylene glycoL POWDER 17 GM (MIRALAX) PACK PO SCH ×2 (08:50→21:14)
[2020-08-17] MEDS: ALPRAZolam 1 MG (XANAX) TAB PO PRN ×2 (09:00→21:13)
[2020-08-17] MEDS: FLUTICASONE NASAL SPRAY (FLONASE) 16 GM BTL NS SCH (10:35)
--- NOTE | 2020-08-17 10:50 | Physical Therapy Daily Note ---
PT Daily Note-Current Subjective Patient agrees to PT. Mental Status Patient Orientation: Normal For Age Attachments: Oxygen, Mendez Catheter, IV Transfers SCALE: Activities may be completed with or without assistive devices. 5-Aglzkoqqxj-xsgfwab completes the activity by him/herself with no assistance from a helper. 5-Set-up or Clean-up Assistance-helper sets up or cleans up; patient completes activity. [place] assists only prior to or following the activity. 4-Supervision or Touching Assistance-helper provides verbal cues and/or touching/steadying and/or contact guard assistance as patient completes activity. Assistance may be provided throughout the activity or intermittently. 3-Partial/Moderate Assistance-helper does LESS THAN HALF the effort. [place] lifts, holds or supports trunk or limbs, but provides less than half the effort. 2-Substantial/Maximal Assistance-helper does MORE THAN HALF the effort. [place] lifts or holds trunk or limbs and provides more than half the effort. 7-Oyzvvcnou-cgymus does ALL the effort. Patient does none of the effort to complete the activity. Or, the assistance of 2 or more helpers is required for the patient to complete the activity. If activity was not attempted, code reason: 7-Patient Refused. 9-Not Applicable-not attempted and the patient did not perform the activity before the current illness, exacerbation or injury. 10-Not Attempted due to Environmental Limitations-(lack of equipment, weather restraints, etc.). 88-Not Attempted due to Medical Conditions or Safety Concerns. Sit to Stand (QC): 6 Gait Training Does the Patient Walk?: Yes Distance: 10' x 3 Walk 10 feet (QC): 4 Gait Assistive Device: FWW Exercises Seated Therapy Exercises: Ankle pumps, Long arc quads Seated Reps: 12 Standing: Heel/toe raises, Marching, Retro gait (3 sets/10') Standing Reps: 15 (2 sets) Assessment Patient's SAO2 remains 88% or higher during session. Increase activity as tolerated by patient. PT Fdc Goals Fdc Goals PT Fdc Goals Time Frame: Aug 28, 2020 Roll Left & Right (QC): 6 Sit to Lying (QC): 6 Lying-Sitting on Side/Bed(QC): 6 Sit to Stand (QC): 6 Chair/Lyl-ee-Ptpzh Xfer(QC): 6 Toilet Transfer (QC): 6 Does the Patient Walk: Yes Walk 10 feet (QC): 6 Walk 50ft with 2 Turns (QC): 6 Walk 150 ft (QC): 6 PT Plan Treatment/Plan Treatment Plan: Continue Plan of Care Treatment Plan: Bed Mobility, Education, Functional Activity [place], Functional Strength, Gait, Safety, Therapeutic Exercise, Transfers Treatment Duration: Aug 28, 2020 Frequency: 6 times per week Estimated Hrs Per Day: .25 hour per day Patient and/or Family Agrees t: Yes Time/GCodes Time In: 1030 Time Out: 1041 Total Billed Treatment Time: 11 Total Billed Treatment 1 visit EX 11 min SRAVANI POTTS PT Aug 17, 2020 10:50
[2020-08-17] MEDS ORDERED: RT-ALBUTEROL INHALER HFA (VENTOLIN HFA) 18 GM IH PRN (18:00)
--- NOTE | 2020-08-17 19:26 | Progress Note ---
Subjective Subjective/Events-last exam Patient feeling much better this AM. She has been switched to NC. Tolerating PO diet. Has not been up out of bed other then to chair Review of Systems General: Fatigue Pulmonary: Dyspnea, Cough Cardiovascular: No: Chest Pain, Palpitations Gastrointestinal: No: Nausea, Vomiting, Abdominal Pain, Diarrhea, Constipation Neurological: Weakness, Incoordination Objective Exam Last Set of Vital Signs Vital Signs Date Time Temp Pulse Resp B/P (MAP) Pulse Ox O2 Delivery O2 Flow Rate FiO2 08/17/20 19:03 High Flow N/C 7.00 08/17/20 16:14 36.5 81 20 118/71 (87) 95 08/16/20 16:30 75 Capillary Refill : Less Than 3 Seconds I&O Intake and Output 08/17/20 00:00 Intake Total 1685 ml Output Total 1995 ml Balance -310 ml Intake Oral 1675 ml IV Total 10 ml Output Urine Total 1995 ml General: Alert, Oriented X3, Cooperative, No Acute Distress Lungs: Normal Air Movement, Other (Normal work of breathing, diminished at the bases, wheezing improved) Heart: Regular Rate, No Murmurs Abdomen: Normal Bowel Sounds, Soft, No Tenderness, No Masses Extremities: No Edema, No Tenderness/Swelling Skin: No Rashes, No Breakdown Neuro: Normal Speech, Sensation Intact, Cranial Nerves 3-12 NL Results/Procedures Lab Laboratory Tests 08/17/20 03:05: White Blood Count 11.2H, Red Blood Count 4.36, Hemoglobin 13.5, Hematocrit 41, Mean Corpuscular Volume 94, Mean Corpuscular Hemoglobin 31, Mean Corpuscular Hemoglobin Concent 33, Red Cell Distribution Width 12.1, Platelet Count 257, Mean Platelet Volume 11.5, Immature Granulocyte % (Auto) 2, Neutrophils (%) (Auto) 68, Lymphocytes (%) (Auto) 20, Monocytes (%) (Auto) 7, Eosinophils (%) (Auto) 3, Basophils (%) (Auto) 0, Neutrophils # (Auto) 7.6, Lymphocytes # (Auto) 2.2, Monocytes # (Auto) 0.8, Eosinophils # (Auto) 0.4H, Basophils # (Auto) 0.0, Immature Granulocyte # (Auto) 0.3H, Sodium Level 137, Potassium Level 3.8, Chloride Level 95L, Carbon Dioxide Level 28, Anion Gap 14, Blood Urea Nitrogen 18, Creatinine 0.71, Estimat Glomerular Filtration Rate > 60, BUN/Creatinine Ratio 25, Glucose Level 91, Calcium Level 8.3L, Phosphorus Level 3.5, Magnesium Level 2.2, Procalcitonin 0.44H Microbiology 08/11/20 MRSA Screen - Final, Complete MRSA not isolated 08/08/20 Blood Culture - Final, Complete No growth Assessment/Plan Assessment/Plan (1) Acute respiratory failure with hypoxia Status: Acute Assessment & Plan: 08/16: Patient stable on Vapotherm, will continue to titrate as tolerated, continue PT/OT to work on debility 08/17: Patient on NC, will continue to titrate as tolerated, PT ordered, OOB as tolerated, rocha removed (2) Sepsis Status: Resolved Qualifiers: Qualified Codes: A41.9 - Sepsis, unspecified organism; R65.20 - Severe sepsis without septic shock; J96.01 - Acute respiratory failure with hypoxia (3) Severe acute respiratory syndrome coronavirus 2 (SARS-CoV-2) detected Status: Acute (4) Hypothyroidism Status: Chronic Assessment & Plan: 08/16: Continue home dosing Qualifiers: Qualified Codes: E03.9 - Hypothyroidism, unspecified (5) Elevated d-dimer Status: Acute Assessment & Plan: 08/16: Presumed PE, Continue treatment dosing on lovenox, ble eding precautions (6) DVT prophylaxis Status: Acute Assessment & Plan: - On treatment dose of lovenox JENNIFER ACEVEDO MD Aug 17, 2020 19:25
[2020-08-17] MEDS: ACETAMINOPHEN 325 MG TABLET PO PRN (21:13)
[2020-08-17] MEDS: MELATONIN 3 MG TABLET PO SCH (21:14)
[2020-08-18] MEDS ORDERED: WATER (STERILE) FOR INJECTION 10 ML ONE ×2 (00:19→05:30)
[2020-08-18] MEDS ORDERED: CEFEPIME 1 GM/10 ML (MAXIPIME) VIAL ONE ×2 (00:20→05:30)
[2020-08-18 00:24] VITALS: BP 112/59
[2020-08-18] MEDS: CEFEPIME INJECTION 1,000 MG in WATER (STERILE) FOR INJECTION 10 ML IV SCH ×5 (00:28→23:49)
[2020-08-18] MEDS: ACETAMINOPHEN 325 MG TABLET PO PRN ×2 (03:09→20:24)
[2020-08-18 03:13] VITALS: BP 111/59
[2020-08-18] MEDS: LEVOTHYROXINE 75 MCG (LEVOTHROID) TABLET PO SCH (06:02)
[2020-08-18] MEDS: PANTOPRAZOLE 40 MG (PROTONIX) TAB PO SCH (06:02)
[2020-08-18 06:04] LABS: BASOPHILS % (AUTO) 0 % (0-10); EOSINOPHILS # (AUTO) 0.4 10^3/uL (0.0-0.3); EOSINOPHILS % (AUTO) 4 % (0-10); HEMATOCRIT 40 % (35-52); HEMOGLOBIN 13.1 g/dL (11.5-16.0); LYMPHOCYTES # (AUTO) 2.4 10^3/uL (1.0-4.0); LYMPHOCYTES % (AUTO) 23 % (12-44); MEAN CORPUSCULAR HEMOGLOBIN 31 pg (25-34); MEAN CORPUSCULAR HGB CONC 33 g/dL (32-36); MEAN CORPUSCULAR VOLUME 95 fL (80-99); MEAN PLATELET VOLUME 11.5 fL (9.0-12.2); MONOCYTES # (AUTO) 0.9 10^3/uL (0.0-1.0); MONOCYTES % (AUTO) 9 % (0-12); NEUTROPHILS # (AUTO) 6.5 10^3/uL (1.8-7.8); NEUTROPHILS % (AUTO) 62 % (42-75); PLATELET COUNT 241 10^3/uL (130-400); WHITE BLOOD COUNT 10.4 10^3/uL (4.3-11.0)
[2020-08-18 06:22] LABS: BUN/CREATININE RATIO 27; CALCIUM 8.5 MG/DL (8.5-10.1); CARBON DIOXIDE 31 MMOL/L (21-32); CHLORIDE 94 MMOL/L (98-107); CREATININE SERUM 0.67 MG/DL (0.60-1.30); GFR ESTIMATED > 60; GLUCOSE 81 MG/DL (70-105); POTASSIUM 3.6 MMOL/L (3.6-5.0); SODIUM 135 MMOL/L (135-145)
[2020-08-18 08:02] VITALS: BP 103/52
[2020-08-18] MEDS: polyethylene glycoL POWDER 17 GM (MIRALAX) PACK PO SCH ×2 (08:56→20:25)
[2020-08-18] MEDS: FUROSEMIDE 40 MG (LASIX) TAB PO SCH (08:56)
[2020-08-18] MEDS: ENOXAPARIN 100 MG/1 ML (LOVENOX) SYR SC SCH (08:57)
[2020-08-18] MEDS: FLUTICASONE NASAL SPRAY (FLONASE) 16 GM BTL NS SCH (08:57)
[2020-08-18] MEDS: FUROSEMIDE 40 MG/4 ML INJ (LASIX) IVP SCH (08:57)
[2020-08-18] MEDS: ALPRAZolam 1 MG (XANAX) TAB PO PRN ×2 (08:57→20:24)
[2020-08-18] MEDS: PROPRANOLOL 20 MG (INDERAL) TABLET PO SCH ×2 (08:57→20:24)
[2020-08-18 11:33] VITALS: BP 117/58
--- NOTE | 2020-08-18 12:55 | Progress Note ---
Subjective Subjective/Events-last exam Patient feeling much better this AM. She took a shower this AM. Has been up in chair most of the morning. Tolerating PO diet. Review of Systems Pulmonary: Dyspnea, Cough Cardiovascular: No: Chest Pain, Palpitations, Edema Gastrointestinal: No: Nausea, Vomiting, Abdominal Pain, Diarrhea, Constipation Genitourinary: No Dysuria, No Frequency Neurological: Weakness, Incoordination, Other (Insomnia) Objective Exam Last Set of Vital Signs Vital Signs Date Time Temp Pulse Resp B/P (MAP) Pulse Ox O2 Delivery O2 Flow Rate FiO2 08/18/20 11:33 36.2 90 20 117/58 (77) 96 High Flow N/C 8.00 08/16/20 16:30 75 Capillary Refill : Less Than 3 Seconds I&O Intake and Output 08/18/20 00:00 Intake Total 1255 ml Output Total 1550 ml Balance -295 ml Intake Oral 1115 ml IV Total 140 ml Output Urine Total 1550 ml # Bowel Movements 1 General: Alert, Oriented X3, Cooperative, Mild Distress (with activity but comfortable in chair) HEENT: Mucous Memb Moist/[place] Lungs: Clear to Auscultation, Normal Air Movement Heart: Regular Rate, No Murmurs Abdomen: Normal Bowel Sounds, Soft, No Tenderness, No Masses Extremities: No Edema, No Tenderness/Swelling Skin: No Rashes, No Breakdown Neuro: Normal Speech, Sensation Intact, Cranial Nerves 3-12 NL Results/Procedures Lab Laboratory Tests 08/18/20 05:45: White Blood Count 10.4, Red Blood Count 4.24, Hemoglobin 13.1, Hematocrit 40, Mean Corpuscular Volume 95, Mean Corpuscular Hemoglobin 31, Mean Corpuscular Hemoglobin Concent 33, Red Cell Distribution Width 12.3, Platelet Count 241, Mean Platelet Volume 11.5, Immature Granulocyte % (Auto) 2, Neutrophils (%) (Auto) 62, Lymphocytes (%) (Auto) 23, Monocytes (%) (Auto) 9, Eosinophils (%) (Auto) 4, Basophils (%) (Auto) 0, Neutrophils # (Auto) 6.5, Lymphocytes # (Auto) 2.4, Monocytes # (Auto) 0.9, Eosinophils # (Auto) 0.4H, Basophils # (Auto) 0.0, Immature Granulocyte # (Auto) 0.2H, Sodium Level 135, Potassium Level 3.6, Chloride Level 94L, Carbon Dioxide Level 31, Anion Gap 10, Blood Urea Nitrogen 18, Creatinine 0.67, Estimat Glomerular Filtration Rate > 60, BUN/Creatinine Ratio 27, Glucose Level 81, Calcium Level 8.5 Microbiology 08/11/20 MRSA Screen - Final, Complete MRSA not isolated 08/08/20 Blood Culture - Final, Complete No growth Assessment/Plan Assessment/Plan (1) Acute respiratory failure with hypoxia Status: Acute Assessment & Plan: 08/16: Patient stable on Vapotherm, will continue to titrate as tolerated, continue PT/OT to work on debility 08/17: Patient on NC, will continue to titrate as tolerated, PT ordered, OOB as tolerated, rocha removed 08/18: Continue to titrate oxygen as tolerated, steroids stopped today, OOB with walker (2) Sepsis Status: Resolved Qualifiers: Qualified Codes: A41.9 - Sepsis, unspecified organism; R65.20 - Severe sepsis without septic shock; J96.01 - Acute respiratory failure with hypoxia (3) Severe acute respiratory syndrome coronavirus 2 (SARS-CoV-2) detected Status: Acute (4) Hypothyroidism Status: Chronic Assessment & Plan: 08/16: Continue home dosing Qualifiers: Qualified Codes: E03.9 - Hypothyroidism, unspecified (5) Elevated d-dimer Status: Acute Assessment & Plan: 08/16: Presumed PE, Continue treatment dosing on lovenox, bleeding precautions 08/18: Starting OAC (6) DVT prophylaxis Status: Acute Assessment & Plan: - On treatment dose of lovenox JENNIFER ACEVEDO MD Aug 18, 2020 12:55
--- NOTE | 2020-08-18 14:43 | Physical Therapy Progress Note ---
Therapy Progress Note Attempted to treat patient around 1400 but she was already ambulating in the hallway with nursing. Patient was ambulating with SBA using a rolling walker. She went approx. 200'. Will check on patient again in the morning and continue if needed. BAILEY SEGOVIA PT Aug 18, 2020 14:43
[2020-08-18 15:51] VITALS: BP 114/70
[2020-08-18] MEDS: RIVAROXABAN 20 MG TABLET (XARELTO) PO SCH (17:27)
[2020-08-18 20:00] VITALS: BP 138/73
[2020-08-18] MEDS: MELATONIN 3 MG TABLET PO SCH (20:25)
[2020-08-19] VITALS (7 sets, daily range): BP systolic 96–118; BP diastolic 61–75
[2020-08-19 05:13] LABS: BASOPHILS % (AUTO) 0 % (0-10); EOSINOPHILS # (AUTO) 0.3 10^3/uL (0.0-0.3); EOSINOPHILS % (AUTO) 3 % (0-10); HEMATOCRIT 41 % (35-52); HEMOGLOBIN 13.4 g/dL (11.5-16.0); LYMPHOCYTES # (AUTO) 2.5 10^3/uL (1.0-4.0); LYMPHOCYTES % (AUTO) 23 % (12-44); MEAN CORPUSCULAR HEMOGLOBIN 31 pg (25-34); MEAN CORPUSCULAR HGB CONC 33 g/dL (32-36); MEAN CORPUSCULAR VOLUME 95 fL (80-99); MONOCYTES # (AUTO) 0.9 10^3/uL (0.0-1.0); MONOCYTES % (AUTO) 8 % (0-12); NEUTROPHILS # (AUTO) 7.2 10^3/uL (1.8-7.8); NEUTROPHILS % (AUTO) 65 % (42-75); PLATELET COUNT 258 10^3/uL (130-400); WHITE BLOOD COUNT 11.1 10^3/uL (4.3-11.0)
[2020-08-19 05:23] LABS: BUN/CREATININE RATIO 25; CALCIUM 8.7 MG/DL (8.5-10.1); CARBON DIOXIDE 29 MMOL/L (21-32); CHLORIDE 96 MMOL/L (98-107); CREATININE SERUM 0.69 MG/DL (0.60-1.30); GFR ESTIMATED > 60; GLUCOSE 86 MG/DL (70-105); POTASSIUM 3.7 MMOL/L (3.6-5.0); SODIUM 137 MMOL/L (135-145)
[2020-08-19] MEDS: PANTOPRAZOLE 40 MG (PROTONIX) TAB PO SCH (06:00)
[2020-08-19] MEDS: CEFEPIME INJECTION 1,000 MG in WATER (STERILE) FOR INJECTION 10 ML IV SCH ×4 (06:00→23:36)
[2020-08-19] MEDS: LEVOTHYROXINE 75 MCG (LEVOTHROID) TABLET PO SCH (06:00)
[2020-08-19] MEDS: polyethylene glycoL POWDER 17 GM (MIRALAX) PACK PO SCH ×2 (08:01→20:35)
[2020-08-19] MEDS: FUROSEMIDE 40 MG (LASIX) TAB PO SCH (08:01)
[2020-08-19] MEDS: PROPRANOLOL 20 MG (INDERAL) TABLET PO SCH ×2 (08:01→20:39)
[2020-08-19] MEDS: FLUTICASONE NASAL SPRAY (FLONASE) 16 GM BTL NS SCH (08:01)
[2020-08-19] MEDS: ALPRAZolam 1 MG (XANAX) TAB PO PRN ×2 (08:03→20:38)
[2020-08-19] MEDS: ACETAMINOPHEN 325 MG TABLET PO PRN ×2 (14:28→20:39)
[2020-08-19] MEDS: RIVAROXABAN 20 MG TABLET (XARELTO) PO SCH (16:31)
--- NOTE | 2020-08-19 18:02 | Progress Note ---
Subjective Subjective/Events-last exam Patient states that she is feeling much better. ON she had to increase oxygen but she thinks that it was due to anxiety. She had nose bleed early this AM and left nostril is very tender. Review of Systems General: Fatigue Pulmonary: Dyspnea, Cough Cardiovascular: No: Chest Pain, Palpitations, Edema Gastrointestinal: No: Nausea, Vomiting, Abdominal Pain, Diarrhea, Constipation Genitourinary: No Dysuria, No Frequency left nostril tenderness after nose bleed Objective Exam Last Set of Vital Signs Vital Signs Date Time Temp Pulse Resp B/P (MAP) Pulse Ox O2 Delivery O2 Flow Rate FiO2 08/19/20 16:36 76 111/69 (83) 94 High Flow N/C 4.00 08/19/20 16:21 36.0 18 08/16/20 16:30 75 Capillary Refill : Less Than 3 Seconds I&O Intake and Output 08/19/20 00:00 Intake Total 2170 ml Output Total 550 ml Balance 1620 ml Intake Oral 2170 ml Output Urine Total 550 ml # Voids 4 General: Alert, Oriented X3, Cooperative, No Acute Distress HEENT: Other (Left nares inflammed with blood clots present) Lungs: Clear to Auscultation, Normal Air Movement Heart: Regular Rate, No Murmurs Abdomen: Normal Bowel Sounds, Soft, No Tenderness, No Masses Extremities: No Edema, No Tenderness/Swelling Neuro: Normal Speech, Sensation Intact, Cranial Nerves 3-12 NL Results/Procedures Lab Laboratory Tests 08/19/20 04:49: White Blood Count 11.1H, Red Blood Count 4.29, Hemoglobin 13.4, Hematocrit 41, Mean Corpuscular Volume 95, Mean Corpuscular Hemoglobin 31, Mean Corpuscular Hemoglobin Concent 33, Red Cell Distribution Width 12.3, Platelet Count 258, Mean Platelet Volume 12.0, Immature Granulocyte % (Auto) 2, Neutrophils (%) (Auto) 65, Lymphocytes (%) (Auto) 23, Monocytes (%) (Auto) 8, Eosinophils (%) (Auto) 3, Basophils (%) (Auto) 0, Neutrophils # (Auto) 7.2, Lymphocytes # (Auto) 2.5, Monocytes # (Auto) 0.9, Eosinophils # (Auto) 0.3, Basophils # (Auto) 0.0, Immature Granulocyte # (Auto) 0.2H, Sodium Level 137, Potassium Level 3.7, Chloride Level 96L, Carbon Dioxide Level 29, Anion Gap 12, Blood Urea Nitrogen 17, Creatinine 0.69, Estimat Glomerular Filtration Rate > 60, BUN/Creatinine Ratio 25, Glucose Level 86, Calcium Level 8.7 Microbiology 08/11/20 MRSA Screen - Final, Complete MRSA not isolated 08/08/20 Blood Culture - Final, Complete No growth Assessment/Plan Assessment/Plan (1) Acute respiratory failure with hypoxia Status: Acute Assessment & Plan: 08/16: Patient stable on Vapotherm, will continue to titrate as tolerated, continue PT/OT to work on debility 08/17: Patient on NC, will continue to titrate as tolerated, PT ordered, OOB as tolerated, rocha removed 08/18: Continue to titrate oxygen as tolerated, steroids stopped today, OOB with walker 08/19: Continues to tolerate titration (2) Bleeding from the nose Status: Acute Assessment & Plan: 08/19: patient on OAC, will continue to monitor, if happens again consider consult to ENT (3) Sepsis Status: Resolved Qualifiers: Qualified Codes: A41.9 - Sepsis, unspecified organism; R65.20 - Severe sepsis without septic shock; J96.01 - Acute respiratory failure with hypoxia (4) Severe acute respiratory syndrome coronavirus 2 (SARS-CoV-2) detected Status: Acute (5) Hypothyroidism Status: Chronic Assessment & Plan: 08/16: Continue home dosing Qualifiers: Qualified Codes: E03.9 - Hypothyroidism, unspecified (6) Elevated d-dimer Status: Acute Assessment & Plan: 08/16: Presumed PE, Continue treatment dosing on lovenox, bleeding precautions 08/18: Starting OAC (7) DVT prophylaxis Status: Acute Assessment & Plan: - On treatment dose of lovenox JENNIFER ACEVEDO MD Aug 19, 2020 18:02
[2020-08-19] MEDS: MELATONIN 3 MG TABLET PO SCH (20:34)
[2020-08-20 04:05] VITALS: BP 107/69
[2020-08-20] MEDS: LEVOTHYROXINE 75 MCG (LEVOTHROID) TABLET PO SCH (05:10)
[2020-08-20] MEDS: PANTOPRAZOLE 40 MG (PROTONIX) TAB PO SCH (05:10)
[2020-08-20] MEDS: CEFEPIME INJECTION 1,000 MG in WATER (STERILE) FOR INJECTION 10 ML IV SCH ×4 (05:10→23:35)
--- NOTE | 2020-08-20 07:14 | Diagnostic Imaging Report ---
Reason for examination: History of COVID, shortness of breath. Upright AP portable chest was obtained and compared to 08/17/2020. The cardiomediastinal silhouette is unchanged. Right PICC line remains in place. Bilateral mixed infiltrates with no significant change or improvement. No pneumothorax or large effusion. Impression: 1. Bilateral mixed interstitial and alveolar infiltrates with no significant change. Dictated by: Dictated on workstation # [id number]
[2020-08-20 08:00] VITALS: BP 103/67
[2020-08-20] MEDS: FUROSEMIDE 40 MG (LASIX) TAB PO SCH (08:22)
[2020-08-20] MEDS: PROPRANOLOL 20 MG (INDERAL) TABLET PO SCH ×2 (08:22→20:59)
[2020-08-20] MEDS: FLUTICASONE NASAL SPRAY (FLONASE) 16 GM BTL NS SCH (08:23)
[2020-08-20] MEDS: polyethylene glycoL POWDER 17 GM (MIRALAX) PACK PO SCH ×2 (08:23→21:02)
[2020-08-20] MEDS: ALPRAZolam 1 MG (XANAX) TAB PO PRN ×2 (08:26→20:59)
[2020-08-20] MEDS: ACETAMINOPHEN 325 MG TABLET PO PRN ×2 (11:40→21:02)
[2020-08-20 12:00] VITALS: BP 101/67
[2020-08-20 16:30] VITALS: BP 106/54
[2020-08-20] MEDS: RIVAROXABAN 20 MG TABLET (XARELTO) PO SCH (17:44)
--- NOTE | 2020-08-20 19:32 | Progress Note ---
Subjective Subjective/Events-last exam Patient feeling much better. She has been up walking around her room and feels alot more stable with the walker. Tolerating PO diet. Review of Systems Pulmonary: Dyspnea (with exertion), Cough Cardiovascular: No: Chest Pain, Palpitations Gastrointestinal: No: Nausea, Vomiting Neurological: Weakness, Incoordination left nostril tenderness after nose bleed Objective Exam Last Set of Vital Signs Vital Signs Date Time Temp Pulse Resp B/P (MAP) Pulse Ox O2 Delivery O2 Flow Rate FiO2 08/20/20 19:11 93 High Flow N/C 3.00 08/20/20 16:30 36.4 78 18 106/54 (71) 08/16/20 16:30 75 Capillary Refill : Less Than 3 Seconds I&O Intake and Output 08/20/20 00:00 Intake Total 1975 ml Balance 1975 ml Intake Oral 1975 ml # Voids 14 # Bowel Movements 3 General: Alert, Oriented X3, Cooperative, No Acute Distress HEENT: Mucous Memb Moist/[place] Lungs: Clear to Auscultation, Normal Air Movement Heart: Regular Rate, No Murmurs Abdomen: Normal Bowel Sounds, Soft, No Tenderness, No Masses Extremities: No Edema, No Tenderness/Swelling Neuro: Normal Speech, Sensation Intact, Cranial Nerves 3-12 NL Results/Procedures Lab Microbiology 08/11/20 MRSA Screen - Final, Complete MRSA not isolated 08/08/20 Blood Culture - Final, Complete No growth Assessment/Plan Assessment/Plan (1) Acute respiratory failure with hypoxia Status: Acute Assessment & Plan: 08/16: Patient stable on Vapotherm, will continue to titrate as tolerated, continue PT/OT to work on debility 08/17: Patient on NC, will continue to titrate as tolerated, PT ordered, OOB as tolerated, rocha removed 08/18: Continue to titrate oxygen as tolerated, steroids stopped today, OOB with walker 08/19: Continues to tolerate titration 08/20: oxygen study today, will need to d/c home on oxygen (2) Bleeding from the nose Status: Acute Assessment & Plan: 08/19: patient on OAC, will continue to monitor, if happens again consider consult to ENT 08/20: Improved (3) Sepsis Status: Resolved Qualifiers: Qualified Codes: A41.9 - Sepsis, unspecified organism; R65.20 - Severe sepsis without septic shock; J96.01 - Acute respiratory failure with hypoxia (4) Severe acute respiratory syndrome coronavirus 2 (SARS-CoV-2) detected Status: Acute (5) Hypothyroidism Status: Chronic Assessment & Plan: 08/16: Continue home dosing Qualifiers: Qualified Codes: E03.9 - Hypothyroidism, unspecified (6) Elevated d-dimer Status: Acute Assessment & Plan: 08/16: Presumed PE, Continue treatment dosing on lovenox, bleeding precautions 08/18: Starting OAC (7) DVT prophylaxis Status: Acute Assessment & Plan: - On treatment dose of lovenox JENNIFER ACEVEDO MD Aug 20, 2020 19:32
[2020-08-20 20:45] VITALS: BP 122/58
[2020-08-20] MEDS: MELATONIN 3 MG TABLET PO SCH (21:02)
[2020-08-21 00:08] VITALS: BP 100/63
[2020-08-21] MEDS: LEVOTHYROXINE 75 MCG (LEVOTHROID) TABLET PO SCH (05:45)
[2020-08-21] MEDS: CEFEPIME INJECTION 1,000 MG in WATER (STERILE) FOR INJECTION 10 ML IV SCH ×2 (05:45→12:03)
[2020-08-21] MEDS: PANTOPRAZOLE 40 MG (PROTONIX) TAB PO SCH (05:45)
[2020-08-21 06:09] LABS: BASOPHILS % (AUTO) 0 % (0-10); EOSINOPHILS # (AUTO) 0.3 10^3/uL (0.0-0.3); EOSINOPHILS % (AUTO) 4 % (0-10); HEMATOCRIT 37 % (35-52); HEMOGLOBIN 11.9 g/dL (11.5-16.0); LYMPHOCYTES # (AUTO) 1.6 10^3/uL (1.0-4.0); LYMPHOCYTES % (AUTO) 24 % (12-44); MEAN CORPUSCULAR HEMOGLOBIN 31 pg (25-34); MEAN CORPUSCULAR HGB CONC 32 g/dL (32-36); MEAN CORPUSCULAR VOLUME 96 fL (80-99); MEAN PLATELET VOLUME 11.7 fL (9.0-12.2); MONOCYTES # (AUTO) 0.7 10^3/uL (0.0-1.0); MONOCYTES % (AUTO) 10 % (0-12); NEUTROPHILS # (AUTO) 4.2 10^3/uL (1.8-7.8); NEUTROPHILS % (AUTO) 61 % (42-75); PLATELET COUNT 187 10^3/uL (130-400); WHITE BLOOD COUNT 6.9 10^3/uL (4.3-11.0)
[2020-08-21 06:18] LABS: CHLORIDE 98 MMOL/L (98-107); POTASSIUM 3.5 MMOL/L (3.6-5.0); SODIUM 139 MMOL/L (135-145)
[2020-08-21 06:19] LABS: CALCIUM 8.4 MG/DL (8.5-10.1)
[2020-08-21 06:20] LABS: GLUCOSE 90 MG/DL (70-105)
[2020-08-21 06:21] LABS: CARBON DIOXIDE 30 MMOL/L (21-32)
[2020-08-21 06:24] LABS: BUN/CREATININE RATIO 23; CREATININE SERUM 0.65 MG/DL (0.60-1.30); GFR ESTIMATED > 60
[2020-08-21 07:42] VITALS: BP 101/66
[2020-08-21] MEDS: polyethylene glycoL POWDER 17 GM (MIRALAX) PACK PO SCH (08:56)
[2020-08-21] MEDS: PROPRANOLOL 20 MG (INDERAL) TABLET PO SCH (09:24)
[2020-08-21] MEDS: FUROSEMIDE 40 MG (LASIX) TAB PO SCH (09:24)
[2020-08-21] MEDS: FLUTICASONE NASAL SPRAY (FLONASE) 16 GM BTL NS SCH (09:25)
[2020-08-21] MEDS: ALPRAZolam 1 MG (XANAX) TAB PO PRN (09:28)
--- NOTE | 2020-08-21 10:18 | Discharge Summary ---
Diagnosis/Chief Complaint Date of Admission Aug 08, 2020 at 17:00 Date of Discharge Discharge Date: Aug 21, 2020 Admission Diagnosis Assessment: COVID-19 PNA Hypoxia Hypothyroidism Anxiety Plan: O2 Supportive care Monitor closely [facility] Discharge Summary Discharge Physical Exam Allergies: Coded Allergies: Penicillins (Verified Allergy, Severe, anaphylaxis, 09/25/18) Sulfa (Sulfonamide Antibiotics) (Verified Allergy, Severe, anaphylaxis, 09/25/18) amoxicillin (Verified Allergy, Severe, FACIAL SWELLING, 08/08/20) clavulanic acid (Verified Allergy, Severe, FACIAL SWELLING, 08/08/20) iodine (Verified Allergy, Severe, anaphylaxis, 09/25/18) Latex, Natural Rubber (Unverified Allergy, Intermediate, Rash, 08/11/20) PT STATES LATEX MAKES HER SKIN RAW levofloxacin (Verified Allergy, Mild, hives, 09/25/18) meperidine (Verified Allergy, Mild, hives, 09/25/18) methylprednisolone (Verified Allergy, Unknown, 09/25/18) povidone-iodine (Verified Allergy, Unknown, 09/25/18) soap (Verified Allergy, Unknown, 09/25/18) Uncoded Allergies: TAPE (Adverse Reaction, Unknown, 09/25/18) Vitals & I&Os Vital Signs Date Time Temp Pulse Resp B/P (MAP) Pulse Ox O2 Delivery O2 Flow Rate FiO2 08/21/20 09:33 110 94 08/21/20 07:42 36.2 20 101/66 (78) High Flow N/C 3.00 08/16/20 16:30 75 General Appearance: No Apparent Distress Respiratory: No Accessory Muscle Use, No Respiratory Distress, Other (Coarse rales noted posteriorly throughout with no evidence of respiratory distress.) Cardiovascular: Regular Rate, Rhythm, No Edema, No Gallop, No JVD, No Murmur, Normal Peripheral Pulses Extremity: Normal Inspection, Normal Range of Motion, Non Tender, No Calf Tenderness, No Pedal Edema Hospital Course Was the Problem List Reviewed?: Yes Labs (last 24 hrs) Laboratory Tests 08/21/20 05:55: White Blood Count 6.9, Red Blood Count 3.84, Hemoglobin 11.9, Hematocrit 37, Mean Corpuscular Volume 96, Mean Corpuscular Hemoglobin 31, Mean Corpuscular Hemoglobin Concent 32, Red Cell Distribution Width 12.7, Platelet Count 187, Mean Platelet Volume 11.7, Immature Granulocyte % (Auto) 1, Neutrophils (%) (Au to) 61, Lymphocytes (%) (Auto) 24, Monocytes (%) (Auto) 10, Eosinophils (%) (Auto) 4, Basophils (%) (Auto) 0, Neutrophils # (Auto) 4.2, Lymphocytes # (Auto) 1.6, Monocytes # (Auto) 0.7, Eosinophils # (Auto) 0.3, Basophils # (Auto) 0.0, Immature Granulocyte # (Auto) 0.1, Sodium Level 139, Potassium Level 3.5L, Chloride Level 98, Carbon Dioxide Level 30, Anion Gap 11, Blood Urea Nitrogen 15, Creatinine 0.65, Estimat Glomerular Filtration Rate > 60, BUN/Creatinine Ratio 23, Glucose Level 90, Calcium Level 8.4L Microbiology 08/11/20 MRSA Screen - Final, Complete MRSA not isolated 08/08/20 Blood Culture - Final, Complete No growth Patient resulted labs reviewed. Pending Labs Laboratory Tests 08/21/20 05:55: White Blood Count 6.9, Red Blood Count 3.84, Hemoglobin 11.9, Hematocrit 37, Mean Corpuscular Volume 96, Mean Corpuscular Hemoglobin 31, Mean Corpuscular Hemoglobin Concent 32, Red Cell Distribution Width 12.7, Platelet Count 187, Mean Platelet Volume 11.7, Immature Granulocyte % (Auto) 1, Neutrophils (%) ( Auto) 61, Lymphocytes (%) (Auto) 24, Monocytes (%) (Auto) 10, Eosinophils (%) (Auto) 4, Basophils (%) (Auto) 0, Neutrophils # (Auto) 4.2, Lymphocytes # (Auto) 1.6, Monocytes # (Auto) 0.7, Eosinophils # (Auto) 0.3, Basophils # (Auto) 0.0, Immature Granulocyte # (Auto) 0.1, Sodium Level 139, Potassium Level 3.5, Chloride Level 98, Carbon Dioxide Level 30, Anion Gap 11, Blood Urea Nitrogen 15, Creatinine 0.65, Estimat Glomerular Filtration Rate > 60, BUN/Creatinine Ratio 23, Glucose Level 90, Calcium Level 8.4 Discussion & Recommendations Discharge Planning: >30 minutes discharge planning Patient presented to the hospital with cough hypoxia and fever. She had bilateral alveolar and interstitial infiltrates and was Covid positive. She did develop progressive pneumonia and respiratory failure compatible with ARDS associated with Covid pneumonia requiring high flow oxygen Via Vapotherm. She received dexamethasone in addition to cefepime and azithromycin and was given full dose Lovenox during her hospital stay. She had slow improvement in hypoxemia but on the day of her discharge while feeling better with decreasing oxygen requirements walking test revealed that it took 4 L to maintain her saturations greater than 88% and 3 L at rest to keep saturations 90 and above. Home oxygen is being set up with no other new home medication. As she has been ambulatory and had a venous Doppler study done bilateral lower extremities revealing no evidence for blood clots on admission so we will not discharge on anticoagulant therapy. She was advised to follow-up with her physician in approximately 1 week and that her oxygen levels can be monitored with continued improvement expected with the hopes of getting off of oxygen in the future. Slow graded walking program discussed for now on 4 L of oxygen when active and again 3 L at rest. Discharge Home Medications: Active Scripts Active Reported Vitamin D3 (Cholecalciferol (Vitamin D3)) 125 Mcg Tablet 125 Mcg PO DAILY Vitamin C (Ascorbate Calcium) 500 Mg Tablet 500 Mg PO DAILY Aspirin EC (Aspirin) 81 Mg Tablet.dr 81 Mg PO Q48H Ibuprofen 200 Mg Tablet 600 Mg PO Q6H PRN TAKES 3 (200MG) TABLETS Tylenol (Acetaminophen) 325 Mg Tablet 650 Mg PO Q6H PRN TAKES 2 (325MG) TABLETS Claritin (Loratadine) 10 Mg Tablet 10 Mg PO DAILY Levothyroxine Sodium 75 Mcg Tablet 37.5 Mcg PO DAILY TAKES (75MCG) TABLET Alprazolam 1 Mg Tablet 0.5 Mg PO 0800,1500 TAKES (1MG) TABLET Fluticasone Propionate 16 Gm [place].susp 1 [place] NSEACH DAILY Instructions to patient/family Please see electronic discharge instructions given to patient. Copy Copies To 1: JENNIFER ACEVEDO MD, MARK D MD Aug 21, 2020 10:18
== END 2020-08-21 12:10 | disposition home or self-care (01) | DRG 177 ==
LOC: EDUNIT# 15:36 → ER 15:38 → 4TH 17:00 → ICU 08-11 04:52 → 4TH 08-17 15:51
PROVIDERS: ADMIT Internal Medicine; ATTEND Family Medicine
PROC: 5A09357 Assistance with Respiratory Ventilation, Less than 24 Consecutive Hours, Continuous Positive Airway Pressure (ICD-10-PCS; principal; 2020-08-11)
PROC: XW13325 Transfusion of Convalescent Plasma (Nonautologous) into Peripheral Vein, Percutaneous Approach, New Technology Group 5 (ICD-10-PCS; 2020-08-11)
DX: U07.1 COVID-19 (principal); J12.82 Pneumonia due to coronavirus disease 2019; J80 Acute respiratory distress syndrome; I26.99 Other pulmonary embolism without acute cor pulmonale; J32.0 Chronic maxillary sinusitis; F41.9 Anxiety disorder, unspecified; E03.9 Hypothyroidism, unspecified; M79.7 Fibromyalgia; R04.0 Epistaxis; G47.00 Insomnia, unspecified; Z88.1 Allergy status to other antibiotic agents; Z88.0 Allergy status to penicillin; Z88.2 Allergy status to sulfonamides; Z73.0 Burn-out
CPT/HCPCS: 36415; 36569; 36600; 71045; 76937; 80048; 80053; 81000; 82805; 83605; 83735; 83880; 84100; 84145; 85025; 85379; 85610; 85730; 86141; 86900; 86901; 87040; 87081; 87449; 87804; 87899; 93970; 94640; 94660; 94664; 94760; 94761; 96361; 96365; 96375

== ENCOUNTER → 2020-09-01 | Outpatient (CLI) | payer BC ==
[~2020-09-01] MED LIST changes: +ACET325T38 PO; +ALPR1TAB7 PO; +ASCO-262 PO; +ASPI-1238 PO; +CHOL500044 PO; +DOXY100C2 PO; +FLUT16SP22 NSEACH; +IBUP-2473 PO; +LEVO75CA5 PO; +LEVO75TA6 PO; +LORA10TA76 PO; +PROP10TA8 PO
--- NOTE | 2020-09-01 13:00 | Diagnostic Imaging Report ---
INDICATION: Wheezing, prior history of Covid infection. PA and lateral chest obtained at 12:06 p.m. and compared to 08/20/2020 FINDINGS: Heart is borderline in size. There is relatively poor inspiration. The previous PICC line has been removed. There is partial improvement of perihilar infiltrates on both sides with some residual infiltrate present left greater than right. There is no pneumothorax or pleural fluid. IMPRESSION: Partial improvement in bilateral infiltrates compared to the prior study. No new abnormality. Dictated by: Dictated on workstation # [id number]
== END ==
LOC: LAB FS 11:52
PROVIDERS: ATTEND Nurse Practitioner Family
DX: R91.8 Other nonspecific abnormal finding of lung field (principal); R06.2 Wheezing; Z86.16 Personal history of COVID-19
CPT/HCPCS: 71046

== ENCOUNTER → 2020-10-01 | Outpatient (CLI) | payer BC ==
--- NOTE | 2020-10-01 16:50 | Diagnostic Imaging Report ---
EXAMINATION: PA and lateral chest at 4:02 PM. INDICATION: Wheezing. FINDINGS: The borderline cardiomegaly noted on the prior exam of 09/01/2020 is again evident and no different. Both lungs do seem somewhat better aerated than on the prior study. There may still be a small amount of interstitial infiltrate in both perihilar regions, however. There is no sign of a pleural effusion. The mediastinum is not widened. The osseous structures are intact. IMPRESSION: The appearance of the chest has improved somewhat as the lungs do seem slightly better aerated than on the prior exam. There may still be a small amount of residual interstitial infiltrate in the perihilar regions bilaterally, however. Clinical followup is recommended. Dictated by: Dictated on workstation # [id number]
== END ==
LOC: RAD FS 15:51
PROVIDERS: ATTEND Nurse Practitioner Family
DX: R06.2 Wheezing (principal); Z86.16 Personal history of COVID-19
CPT/HCPCS: 71046

== ENCOUNTER 2020-10-14 13:00 | Outpatient (RCR) | payer BC ==
[2020-11-02] MEDS ORDERED: PROP10TA8 PO (09:06)
[2020-11-02] MEDS ORDERED: ASPI-1238 PO (18:56)
[2020-11-02] MEDS ORDERED: AZIT250T12 PO (18:56)
== END 2020-11-30 | disposition home or self-care (01) ==
LOC: PULM 13:00
PROVIDERS: ATTEND Nurse Practitioner Family
DX: J18.9 Pneumonia, unspecified organism (principal)
CPT/HCPCS: 99211

== ENCOUNTER → 2020-10-29 | Outpatient (CLI) | payer BC ==
[~2020-10-29] MED LIST changes: +AZIT250T12 PO
--- NOTE | 2020-10-29 11:03 | Diagnostic Imaging Report ---
INDICATION: Post Covid-19 condition. Time of exam: 10:48 AM Correlation is made with prior chest 10/01/2020. The heart size is normal. The pulmonary vascularity is unremarkable. The lungs are clear. No infiltrate, effusion or pneumothorax is detected. IMPRESSION: No acute cardiopulmonary process is detected. Dictated by: Dictated on workstation # [id number]
== END ==
LOC: RAD FS 10:30
PROVIDERS: ATTEND Nurse Practitioner Family
DX: Z01.89 Encounter for other specified special examinations (principal); Z86.16 Personal history of COVID-19
CPT/HCPCS: 71046

== ENCOUNTER 2020-11-01 18:27 | Observation (INO) | payer BC ==
[~2020-11-01] VITALS: Ht 157.5 cm; Wt 91.6 kg
[~2020-11-01 18:27] MED LIST changes: -AZIT250T12 PO
[2020-11-01 19:04] LABS: BASOPHILS % (AUTO) 0 % (0-10); EOSINOPHILS # (AUTO) 0.7 10^3/uL (0.0-0.3); EOSINOPHILS % (AUTO) 8 % (0-10); HEMATOCRIT 46 % (35-52); HEMOGLOBIN 15.1 g/dL (11.5-16.0); LYMPHOCYTES # (AUTO) 2.2 10^3/uL (1.0-4.0); LYMPHOCYTES % (AUTO) 27 % (12-44); MEAN CORPUSCULAR HEMOGLOBIN 31 pg (25-34); MEAN CORPUSCULAR HGB CONC 33 g/dL (32-36); MEAN CORPUSCULAR VOLUME 95 fL (80-99); MEAN PLATELET VOLUME 11.3 fL (9.0-12.2); MONOCYTES # (AUTO) 0.7 10^3/uL (0.0-1.0); MONOCYTES % (AUTO) 8 % (0-12); NEUTROPHILS # (AUTO) 4.7 10^3/uL (1.8-7.8); NEUTROPHILS % (AUTO) 56 % (42-75); PLATELET COUNT 221 10^3/uL (130-400); WHITE BLOOD COUNT 8.3 10^3/uL (4.3-11.0)
[2020-11-01 19:08] LABS: ALBUMIN 4.1 GM/DL (3.2-4.5); CHLORIDE 102 MMOL/L (98-107); POTASSIUM 4.1 MMOL/L (3.6-5.0); SODIUM 141 MMOL/L (135-145)
[2020-11-01 19:10] LABS: CALCIUM 9.7 MG/DL (8.5-10.1)
[2020-11-01 19:11] LABS: GLUCOSE 147 MG/DL (70-105); TOTAL PROTEIN 8.5 GM/DL (6.4-8.2)
[2020-11-01 19:12] LABS: CARBON DIOXIDE 27 MMOL/L (21-32)
[2020-11-01 19:13] LABS: BILIRUBIN,TOTAL 0.4 MG/DL (0.1-1.0)
[2020-11-01 19:13] LABS: PROTHROMBIN TIME PATIENT 13.2 SEC (12.2-14.7)
[2020-11-01 19:14] LABS: ALKALINE PHOSPHATASE 136 U/L (40-136)
[2020-11-01 19:15] LABS: GFR ESTIMATED > 60
[2020-11-01 19:16] LABS: BUN/CREATININE RATIO 10
[2020-11-01 19:17] LABS: ALANINE AMINOTRANSFERASE 88 U/L (0-55)
--- NOTE | 2020-11-01 19:26 | ED General ---
General Chief Complaint: General Problems/Pain Stated Complaint: DIZZY Nursing Triage Note: PT AMB TO ROOM 3 PT CO OF DIZZINESS, L EAR PAIN, FATIGUE, SEK URGENT CARE SENT PT TO ED BECAUSE OF WAY LUNGS SOUNDED. PT IS 3MO POST COVID AND WEARS O2 @2L PER N/C Nursing Sepsis Screen: No Definite Risk Source of Information: Patient Exam Limitations: No Limitations History of Present Illness Date Seen by Provider: Nov 01, 2020 Time Seen by Provider: 18:49 Initial Comments Here with report of dizziness and left ear fullness. Seen in urgent care today and sent here because of lung sounds that were abnormal. Does have history of Covid infection and had prolonged hospitalization but was not on ventilator support. She did have a brief trial of BiPAP but she could not tolerate and ultimately was on Vapotherm. After this she did improve. She does have multiple allergies which complicated care. Overall doing better and she is normally on 1 to 2 L of oxygen as needed but is needing that less currently. She is concerned because of the lung sounds. She did have chest x-ray last week that was read as normal. Denies any fevers but has had some congestion and fatigue. She was noted to be very low on vitamin D and she states that often causes the fatigue. She restarted that today. Timing/Duration: 1-2 Days, Getting Worse Severity: Mild, Moderate Associated Systoms: No Chest Pain, No Fever/Chills, No Nausea/Vomiting, No Shortness of Air Allergies and Home Medications Allergies Coded Allergies: Penicillins (Verified Allergy, Severe, anaphylaxis, 09/25/18) Sulfa (Sulfonamide Antibiotics) (Verified Allergy, Severe, anaphylaxis, 09/25/18) amoxicillin (Verified Allergy, Severe, FACIAL SWELLING, 08/08/20) clavulanic acid (Verified Allergy, Severe, FACIAL SWELLING, 08/08/20) iodine (Verified Allergy, Severe, anaphylaxis, 09/25/18) Latex, Natural Rubber (Unverified Allergy, Intermediate, Rash, 08/11/20) PT STATES LATEX MAKES HER SKIN RAW levofloxacin (Verified Allergy, Mild, hives, 09/25/18) meperidine (Verified Allergy, Mild, hives, 09/25/18) methylprednisolone (Verified Allergy, Unknown, 09/25/18) povidone-iodine (Verified Allergy, Unknown, 09/25/18) soap (Verified Allergy, Unknown, 09/25/18) Uncoded Allergies: TAPE (Adverse Reaction, Unknown, 09/25/18) Home Medications Acetaminophen 325 Mg Tablet, 650 MG PO Q6H PRN for PAIN-MILD (1-4), (Reported) TAKES 2 (325MG) TABLETS Alprazolam 1 Mg Tablet, 0.5 MG PO 0800,1500, (Reported) TAKES (1MG) TABLET Ascorbate Calcium 500 Mg Tablet, 500 MG PO DAILY, (Reported) Aspirin 81 Mg Tablet.dr, 81 MG PO Q48H, (Reported) Cholecalciferol (Vitamin D3) 125 Mcg Tablet, 125 MCG PO DAILY, (Reported) Fluticasone Propionate 16 Gm [place].susp, 1 SPR[place] NSEACH DAILY, (Reported) Ibuprofen 200 Mg Tablet, 600 MG PO Q6H PRN for PAIN-MILD (1-4), (Reported) TAKES 3 (200MG) TABLETS Levothyroxine Sodium 75 Mcg Tablet, 37.5 MCG PO DAILY, (Reported) TAKES (75MCG) TABLET Loratadine 10 Mg Tablet, 10 MG PO DAILY, (Reported) Patient Home Medication List Home Medication List Reviewed: Yes Review of Systems Review of Systems Constitutional: see HPI; No fever; other (Fatigue) EENTM: ear pain, nose congestion Respiratory: see HPI; No cough, No short of breath Cardiovascular: No chest pain, No edema Gastrointestinal: No abdominal pain, No nausea, No vomiting Genitourinary: no symptoms reported Musculoskeletal: no symptoms reported Skin: no symptoms reported All Other Systems Reviewed Negative Unless Noted: Yes Past Idayjof-Tvuzry-Flales Hx Past Med/Social Hx: Reviewed Nursing Past Med/Soc Hx Patient Social History Alcohol Use: Denies Use Smoking Status: Never a Smoker 2nd Hand Smoke Exposure: No Recent Infectious Disease Expo: No Recent Hopitalizations: Yes (AUGUST 2020, COVID) Seasonal Allergies Seasonal Allergies: No Past Medical History Surgeries: Yes ("kidney stone") Gallbladder, Lumpectomy Respiratory: Yes (BRONCHITIS) Cardiac: Yes ("sinus tachacardia rate in 200s) Genitourinary: Yes Kidney Stones Gastrointestinal: No Musculoskeletal: Yes Fibromyalgia Endocrine: Yes Hypothyroidsim HEENT: No Cancer: No Psychosocial: Yes Anxiety Integumentary: No Blood Disorders: No Family Medical History Reviewed Nursing Family Hx No Pertinent Family Hx HTN Physical Exam Vital Signs Vital Signs - First Documented 11/01/20 18:32 Temp 36.6 Pulse 100 Resp 18 B/P (MAP) 146/99 (115) Capillary Refill : Less Than 3 Seconds Height, Weight, BMI Height: 5'2.00" Weight: 190lbs. oz. 86.048122zd; 36.00 BMI Method:Stated General Appearance: No Apparent Distress, WD/WN HEENT: PERRL/EOMI, Pharynx Normal, TM Abnormal (L) (Bulging without redness or opacity), Other (Right TM normal) Neck: Non Tender, Supple Respiratory: No Accessory Muscle Use, No Respiratory Distress, Crackles (Left base) Cardiovascular: Regular Rate, Rhythm, No Murmur Gastrointestinal: Non Tender, Soft Back: Normal Inspection, No CVA Tenderness, No Vertebral Tenderness Extremity: Normal Range of Motion, Non Tender, No Calf Tenderness, No Pedal Edema Neurologic/Psychiatric: Alert, Oriented x3 Skin: Normal Color, Warm/Dry Progress/Results/Core Measures Suspected Sepsis Recent Fever Within 48 Hours: No Infection Criteria Present: None New/Unexplained Altered Menta: No Sepsis Screen: No Definite Risk SIRS Temperature: Pulse: 100 Respiratory Rate: 18 Laboratory Tests 11/01/20 18:55: White Blood Count 8.3 Blood Pressure 146 /99 Mean: 115 Laboratory Tests 11/01/20 18:49: INR Comment 1.0 11/01/20 18:55: Platelet Count 221 11/01/20 19:00: Creatinine 0.80, Total Bilirubin 0.4 Results/Orders Lab Results Laboratory Tests Test 11/01/20 18:49 11/01/20 18:55 11/01/20 19:00 Range/Units Prothrombin Time 13.2 12.2-14.7 SEC INR Comment 1.0 0.8-1.4 Activated Partial Thromboplast Time 27 24-35 SEC D-Dimer 1.88 H 0.00-0.49 UG/ML White Blood Count 8.3 4.3-11.0 10^3/uL Red Blood Count 4.88 3.80-5.11 10^6/uL Hemoglobin 15.1 11.5-16.0 g/dL Hematocrit 46 35-52 % Mean Corpuscular Volume 95 80-99 fL Mean Corpuscular Hemoglobin 31 25-34 pg Mean Corpuscular Hemoglobin Concent 33 32-36 g/dL Red Cell Distribution Width 12.5 10.0-14.5 % Platelet Count 221 130-400 10^3/uL Mean Platelet Volume 11.3 9.0-12.2 fL Immature Granulocyte % (Auto) 0 % Neutrophils (%) (Auto) 56 42-75 % Lymphocytes (%) (Auto) 27 12-44 % Monocytes (%) (Auto) 8 0-12 % Eosinophils (%) (Auto) 8 0-10 % Basophils (%) (Auto) 0 0-10 % Neutrophils # (Auto) 4.7 1.8-7.8 10^3/uL Lymphocytes # (Auto) 2.2 1.0-4.0 10^3/uL Monocytes # (Auto) 0.7 0.0-1.0 10^3/uL Eosinophils # (Auto) 0.7 H 0.0-0.3 10^3/uL Basophils # (Auto) 0.0 0.0-0.1 10^3/uL Immature Granulocyte # (Auto) 0.0 0.0-0.1 10^3/uL Sodium Level 141 135-145 MMOL/L Potassium Level 4.1 3.6-5.0 MMOL/L Chloride Level 102 98-107 MMOL/L Carbon Dioxide Level 27 21-32 MMOL/L Anion Gap 12 5-14 MMOL/L Blood Urea Nitrogen 8 7-18 MG/DL Creatinine 0.80 0.60-1.30 MG/DL Estimat Glomerular Filtration Rate > 60 BUN/Creatinine Ratio 10 Glucose Level 147 H 70-105 MG/DL Calcium Level 9.7 8.5-10.1 MG/DL Corrected Calcium 9.6 8.5-10.1 MG/DL Total Bilirubin 0.4 0.1-1.0 MG/DL Aspartate Amino Transf (AST/SGOT) 59 H 5-34 U/L Alanine Aminotransferase (ALT/SGPT) 88 H 0-55 U/L Alkaline Phosphatase 136 40-136 U/L C-Reactive Protein High Sensitivity 1.07 H 0.00-0.50 MG/DL Total Protein 8.5 H 6.4-8.2 GM/DL Albumin 4.1 3.2-4.5 GM/DL Procalcitonin 0.24 H <0.10 NG/ML My Orders Orders - MIKAELA MARTIN MD Chest Pa/Lat (2 View) (11/01/20 18:49) Comprehensive Metabolic Panel (11/01/20 18:49) Hs C Reactive Protein (11/01/20 18:49) Fibrin Degradation Products (11/01/20 18:49) Protime With Inr (11/01/20 18:49) Partial Thromboplastin Time (11/01/20 18:49) Ed Iv/Invasive Line Start (11/01/20 18:49) O2 (11/01/20 18:49) Azithromycin Tablet (Zithromax Tablet) (11/01/20 20:53) Oxymetazoline 0.05% Nasal [place] (Afrin 0. (11/01/20 21:00) Vital Signs/I&O 11/01/20 18:32 Temp 36.6 Pulse 100 Resp 18 B/P (MAP) 146/99 (115) Capillary Refill : Less Than 3 Seconds Blood Pressure Mean: 115 Progress Note : Progress Note Seen and evaluated. IV, labs, chest x-ray ordered. Reviewed history including previous chest x-ray. Monitor patient. 2049: Patient does have elevated D- dimer which is concerning as she is post Covid with increased risk for hypercoagulable state and pulmonary emboli. Patient has contrast allergy and steroid allergy preventing CT angiogram. She will need ultrasound of the lower extremities as well as a VQ scan which we will be able to get until the morning. Given her history of Covid and the need for this testing, we will admit the patient observation status and initiate Lovenox. There is also concern for sinusitis which we will initiate treatment with azithromycin and Afrin nasal spray. Lovenox 90 mg subcu ordered. I did discuss the case with Dr. Márquez and she accepts patient for admission, observation status with ultrasound and VQ scan for the morning. All the findings and concerns were discussed with the patient and family who agree with plan. Diagnostic Imaging Diagonstic Imaging: Xray Plain Films/CT/US/NM/MRI: chest Comments NAME: JUD MANSFIELD I [facility] REC#: [id number] PT STATUS: REG ER : 1965 PHYSICIAN: MIKAELA MARTIN MD ADMIT DATE: 11/01/20/ER Draft Date of Exam:11/01/20 CHEST PA/LAT (2 VIEW) INDICATION: Three months post COVID. Dizziness and fatigue. EXAMINATION: Two-view chest from 11/01/2020. COMPARISON: 10/29/2020. FINDINGS: The cardiomediastinal silhouette is unremarkable. The pulmonary vasculature is within normal limits. The lungs and pleural spaces are clear. IMPRESSION: No evidence of an acute cardiopulmonary process. Dictated on workstation # [id number] Dict: 11/01/201930 Trans: 11/01/201934 [id number] Interpreted by: LEATHA SALAZAR MD Electronically signed by: Reviewed: Reviewed by Me Departure Communication (Admissions) Time/Spoke to Admitting Phy: 20:50 Impression Primary Impression: Elevated d-dimer Additional Impressions: Sinusitis Qualified Codes: J01.90 - Acute sinusitis, unspecified Fatigue Qualified Codes: G93.3 - Postviral fatigue syndrome Post-COVID syndrome Disposition: ADMITTED INPATIENT Condition: Stable Admissions Decision to Admit Reason: Admit from ER (General) Decision to Admit/Date: Nov 01, 2020 Time/Decision to Admit Time: 20:50 Departure-Patient Inst. Referrals: NO,LOCAL PHYSICIAN (PCP) Primary Care Physician ANTOINETTE MESSINA APRN (Family) Primary Care Physician MIKAELA MRATIN MD Nov 01, 2020 19:26
--- NOTE | 2020-11-01 19:36 | Diagnostic Imaging Report ---
INDICATION: Three months post COVID. Dizziness and fatigue. EXAMINATION: Two-view chest from 11/01/2020. COMPARISON: 10/29/2020. FINDINGS: The cardiomediastinal silhouette is unremarkable. The pulmonary vasculature is within normal limits. The lungs and pleural spaces are clear. IMPRESSION: No evidence of an acute cardiopulmonary process. Dictated by: Dictated on workstation # [id number]
[2020-11-01 20:14] LABS: FIBRIN DEGRADATION PRODUCTS 1.88 UG/ML (0.00-0.49)
[2020-11-01] MEDS ORDERED: AZITHROMYCIN 250 MG TAB (ZITHROMAX) PO STA (20:53)
[2020-11-01] MEDS ORDERED: ENOXAPARIN 100 MG/1 ML (LOVENOX) SYR SC ONE (21:00)
[2020-11-01] MEDS ORDERED: OXYMETAZOLINE (AFRIN) 0.05% NA 30 ML BTL SCH (21:00)
[2020-11-01 21:50] VITALS: BP 138/80
[2020-11-01] MEDS ORDERED: CATHETER FLUSH 10 ML SYR IV PRN (22:30)
[2020-11-01 23:47] VITALS: BP 121/55
[2020-11-02 03:29] VITALS: BP 126/76
[2020-11-02 05:59] LABS: BASOPHILS % (AUTO) 1 % (0-10); EOSINOPHILS # (AUTO) 0.6 10^3/uL (0.0-0.3); EOSINOPHILS % (AUTO) 7 % (0-10); HEMATOCRIT 42 % (35-52); HEMOGLOBIN 13.5 g/dL (11.5-16.0); LYMPHOCYTES # (AUTO) 2.7 10^3/uL (1.0-4.0); LYMPHOCYTES % (AUTO) 33 % (12-44); MEAN CORPUSCULAR HEMOGLOBIN 31 pg (25-34); MEAN CORPUSCULAR HGB CONC 33 g/dL (32-36); MEAN CORPUSCULAR VOLUME 96 fL (80-99); MEAN PLATELET VOLUME 11.3 fL (9.0-12.2); MONOCYTES # (AUTO) 0.7 10^3/uL (0.0-1.0); MONOCYTES % (AUTO) 8 % (0-12); NEUTROPHILS # (AUTO) 4.3 10^3/uL (1.8-7.8); NEUTROPHILS % (AUTO) 51 % (42-75); PLATELET COUNT 185 10^3/uL (130-400); WHITE BLOOD COUNT 8.4 10^3/uL (4.3-11.0)
[2020-11-02 06:11] LABS: ALBUMIN 3.6 GM/DL (3.2-4.5); CHLORIDE 104 MMOL/L (98-107); POTASSIUM 4.1 MMOL/L (3.6-5.0); SODIUM 140 MMOL/L (135-145)
[2020-11-02 06:13] LABS: CALCIUM 9.2 MG/DL (8.5-10.1)
[2020-11-02 06:14] LABS: GLUCOSE 105 MG/DL (70-105)
[2020-11-02 06:15] LABS: CARBON DIOXIDE 26 MMOL/L (21-32)
[2020-11-02 06:16] LABS: BILIRUBIN,TOTAL 0.5 MG/DL (0.1-1.0)
[2020-11-02 06:17] LABS: ALKALINE PHOSPHATASE 112 U/L (40-136)
[2020-11-02 06:18] LABS: CREATININE SERUM 0.75 MG/DL (0.60-1.30); GFR ESTIMATED > 60
[2020-11-02 06:19] LABS: BUN/CREATININE RATIO 12
[2020-11-02 06:20] LABS: ALANINE AMINOTRANSFERASE 78 U/L (0-55)
--- NOTE | 2020-11-02 06:32 | Short Stay Summary-Hospitalist ---
History of Present Illness HPI/Chief Complaint CC: Shortness of breath with elevated D-dimer HPI: This is a 55 year old white female known to me from COVID syndrome at hospital who had presented to Urgent Care, heard crackles in her left lower lobe, and Pt was found to have elevated D-dimer. Had stopped baby aspirin therapy after 6 weeks so bilateral lower extremity ultrasound were negative for DVT this morning. VQ scan is pending. I did initiate a pulmonology consult and she is on Azithromycin due to left ear infection. Pulmonology recommended cardiology consultation with echo and that was completed and Dr. Cunningham evaluated her and approved discharge. Source: patient, family, RN/MD, old records Exam Limitations: no limitations Date Seen 11/02/20 Time Seen by a Provider: 10:00 Attending Physician Jessica Márquez DO PCP No,Local Physician Referring Physician Date of Admission Nov 01, 2020 at 20:59 Home Medications & Allergies Home Medications Reviewed patient Home Medication Reconciliation performed by pharmacy medication reconciliations binder technician and/or nursing. Patients Allergies have been reviewed. Allergies Allergies Coded Allergies Penicillins (Verified Allergy, Severe, anaphylaxis, 09/25/18) Sulfa (Sulfonamide Antibiotics) (Verified Allergy, Severe, anaphylaxis, 09/25/18) amoxicillin (Verified Allergy, Severe, FACIAL SWELLING, 08/08/20) clavulanic acid (Verified Allergy, Severe, FACIAL SWELLING, 08/08/20) iodine (Verified Allergy, Severe, anaphylaxis, 09/25/18) Latex, Natural Rubber (Unverified Allergy, Intermediate, Rash, 08/11/20) PT STATES LATEX MAKES HER SKIN RAW levofloxacin (Verified Allergy, Mild, hives, 09/25/18) meperidine (Verified Allergy, Mild, hives, 09/25/18) methylprednisolone (Verified Allergy, Unknown, 09/25/18) povidone-iodine (Verified Allergy, Unknown, 09/25/18) soap (Verified Allergy, Unknown, 09/25/18) Uncoded Allergies TAPE ( Adverse Reaction, Unknown, 09/25/18) Past Wiflppx-Obnpiz-Lnykcc Hx Patient Social History Marrital Status: Employed/Student: unemployed Tobacco Use?: No Smoking Status: Never a Smoker Substance use?: No Alcohol Use?: No Pt feels they are or have been: No Immunizations Up To Date Tetanus Booster (TDap): Less Than 5 Years Hepatitis A: No Hepatitis B: No Seasonal Allergies Seasonal Allergies: No Current Status status: No status: No Advance Directives: No Communicates: Verbally Primary Language: Bhutanese Preferred Spoken Language: Bhutanese Is interpretation needed?: No Past Medical History Surgeries: Gallbladder, Lumpectomy Pneumonia (Covid pneumonia) Kidney Stones Fibromyalgia Hypothyroidsim Anxiety Blood Disorders: No Hypothyroidism Anxiety Insomnia Family Medical History Reviewed Nursing Family Hx No Pertinent Family Hx HTN Review of Systems Constitutional: see HPI EENTM: ear pain Physical Exam Physical Exam Vital Signs Vital Signs - First Documented 11/01/20 18:32 Temp 36.6 Pulse 100 Resp 18 B/P (MAP) 146/99 (115) Capillary Refill : Less Than 3 Seconds Height, Weight, BMI Height: 5'2.00" Weight: 190lbs. oz. 86.135111gy; 36.92 BMI Method:Stated General Appearance: No Apparent Distress, WD/WN, Chronically ill, Obese HEENT: PERRL/EOMI, Pharynx Normal, TM Abnormal (L) (Bulging without redness or opacity), Other (Right TM normal) Neck: Non Tender, Supple Respiratory: No Accessory Muscle Use, No Respiratory Distress, Crackles (Left base) Cardiovascular: Regular Rate, Rhythm, No Murmur Gastrointestinal: Non Tender, Soft Back: Normal Inspection, No CVA Tenderness, No Vertebral Tenderness Extremity: Normal Range of Motion, Non Tender, No Calf Tenderness, No Pedal Edema Neurologic/Psychiatric: Alert, Oriented x3 Skin: Normal Color, Warm/Dry Results Results/Procedures Labs Laboratory Tests 11/01/20 18:55 11/01/20 19:00 11/02/20 05:42 Patient resulted labs reviewed. Short Stay Diagnosis Discharge Diagnosis-Short Stay Admission Diagnosis Assessment: Dyspnea Elevated D-dimer with venous Doppler ultrasound negative for DVT and VQ scan low probability of PE Left ear infection Chronic sinusitis Post Covid syndrome Hypothyroidism Fibromyalgia Plan: Echo Cardiology consult Pulmonology consult VQ scan reviewed Discharge home Final Discharge Diagnosis Assessment: Dyspnea Elevated D-dimer with venous Doppler ultrasound negative for DVT and VQ scan low probability of PE Left ear infection Chronic sinusitis Post Covid syndrome Hypothyroidism Fibromyalgia Plan: Echo Cardiology consult Pulmonology consult VQ scan reviewed Discharge home Conclusion Plan DC home Diagnosis/Problems Diagnosis/Problems (1) Dyspnea (2) Post-COVID syndrome Status: Acute (3) Sinusitis Qualifiers: Qualified Codes: J01.90 - Acute sinusitis, unspecified (4) Elevated d-dimer Status: Acute (5) Fatigue Status: Acute Qualifiers: Qualified Codes: G93.3 - Postviral fatigue syndrome (6) Hypothyroidism Status: Chronic JESSICA MÁRQUEZ DO Nov 02, 2020 06:32
[2020-11-02] MEDS: CATHETER FLUSH 10 ML SYR IV SCH ×2 (06:40→14:00)
[2020-11-02 08:00] VITALS: BP 115/74
[2020-11-02] MEDS ORDERED: OXYMETAZOLINE (AFRIN) 0.05% NA 30 ML BTL SCH (09:00)
[2020-11-02] MEDS ORDERED: ENOXAPARIN 100 MG/1 ML (LOVENOX) SYR SC SCH (09:00)
--- NOTE | 2020-11-02 09:03 | Diagnostic Imaging Report ---
PROCEDURE: US Venous Lower Ext Maciej. TECHNIQUE: Multiple real-time grayscale images were obtained over the lower extremities in various projections, bilaterally. Additional duplex Doppler and color Doppler images were also obtained. INDICATION: Elevated d-dimer EXAMINATIONS: Both grayscale and color Doppler imaging of the deep veins of the lower extremities were performed with waveform analysis. FINDINGS: There is no intraluminal filling defect. Normal continuous flow is seen throughout the deep venous systems of both legs, and there is normal response to augmentation. The deep veins compress normally. IMPRESSION: No ultrasound evidence of deep venous thrombosis in either lower extremity. Dictated by: Dictated on workstation # [id number]
[2020-11-02] MEDS ORDERED: PROP10TA8 PO (09:06)
--- NOTE | 2020-11-02 10:07 | Pulmonary Consultation ---
History of Present Illness History of Present Illness Date Seen by Provider: Nov 02, 2020 Time Seen by Provider: 10:30 Date of Admission History of Present Illness 55 y old lady presented to ED with cc of dizziness and left ear pain. She was seen in urgent care prior to the ED visit, and referred to ED because of lung sounds that were abnormal. Does have history of Covid infection and had prolonged hospitalization but was not on ventilator support. During the last admission she did have a brief trial of BiPAP but she could not tolerate and ultimately was on Vapotherm. She does have multiple allergies which complicated care. Overall doing better and she is normally on 1.5 l daytime to 2 L night of oxygen as needed but is needing less today.She did have chest x- ray last week that was read as normal. Denies any fevers but has had some congestion and fatigue. She was noted to be very low on vitamin D and she states that often causes the fatigue. No cp/ cough/ fever/ chills. Allergies and Home Medications Allergies Coded Allergies: Penicillins (Verified Allergy, Severe, anaphylaxis, 09/25/18) Sulfa (Sulfonamide Antibiotics) (Verified Allergy, Severe, anaphylaxis, 09/25/18) amoxicillin (Verified Allergy, Severe, FACIAL SWELLING, 08/08/20) clavulanic acid (Verified Allergy, Severe, FACIAL SWELLING, 08/08/20) iodine (Verified Allergy, Severe, anaphylaxis, 09/25/18) Latex, Natural Rubber (Unverified Allergy, Intermediate, Rash, 08/11/20) PT STATES LATEX MAKES HER SKIN RAW levofloxacin (Verified Allergy, Mild, hives, 09/25/18) meperidine (Verified Allergy, Mild, hives, 09/25/18) methylprednisolone (Verified Allergy, Unknown, 09/25/18) povidone-iodine (Verified Allergy, Unknown, 09/25/18) soap (Verified Allergy, Unknown, 09/25/18) Uncoded Allergies: TAPE (Adverse Reaction, Unknown, 09/25/18) Home Medications Alprazolam 1 Mg Tablet, 0.5 MG PO 0800,1500, (Reported) TAKES (1MG) TABLET Ascorbate Calcium 500 Mg Tablet, 500 MG PO DAILY, (Reported) Cholecalciferol (Vitamin D3) 125 Mcg Tablet, 125 MCG PO DAILY, (Reported) Fluticasone Propionate 16 Gm [place].susp, 1-2 SPRAY NSEACH DAILY, (Reported) Ibuprofen 200 Mg Tablet, 600 MG PO Q6H PRN for PAIN-MILD (1-4), (Reported) TAKES 3 (200MG) TABLETS Levothyroxine Sodium 75 Mcg Tablet, 37.5 MCG PO DAILY, (Reported) TAKES (75MCG) TABLET Loratadine 10 Mg Tablet, 10 MG PO DAILY, (Reported) Propranolol HCl 10 Mg Tablet, 10 MG PO BID, (Reported) Past Medical/Social/Family Hx Patient Social History Employed/Student: employed, unemployed Tobacco Use?: No Smoking Status: Never a Smoker Substance use?: No Alcohol Use?: No Pt stated abuse/neglect: No Immunizations Up To Date Tetanus Booster (TDap): Less Than 5 Years Hepatitis A: No Hepatitis B: No TB Skin Test: Negative Current Status status: No status: No Advance Directives: No Communicates: Verbally Primary Language: Nauruan Preferred Spoken Language: Nauruan Is interpretation needed?: No Past Medical History Hypothyroidism Anxiety Insomnia Family Medical History Family Hx: HTN Review of Systems Constitutional: weakness Respiratory: dyspnea on exertion Sepsis Event Evaluation Height, Weight, BMI Height: 5'2.00" Weight: 190lbs. oz. 86.904551vs; 36.92 BMI Method:Stated Exam Exam Patient acknowledged, consented, and participated in this virtual visit which was conducted using real time audio/video Vital Signs Date Time Temp Pulse Resp B/P (MAP) Pulse Ox O2 Delivery O2 Flow Rate FiO2 11/02/20 08:00 36.0 77 18 115/74 (88) 97 Room Air 2.00 11/02/20 08:00 97 Nasal Cannula 2.00 11/02/20 07:00 86 11/02/20 03:29 36.0 82 18 126/76 (93) 99 Room Air 2.00 11/02/20 01:00 72 11/01/20 23:47 36.5 78 18 121/55 (77) 97 Nasal Cannula 2.00 11/01/20 23:39 88 20 142/90 99 11/01/20 22:22 82 11/01/20 21:50 Nasal Cannula 2.00 11/01/20 21:50 36.6 85 16 138/80 (99) 97 Nasal Cannula 2.00 11/01/20 18:32 36.6 100 18 146/99 (115) I & O 11/02/20 07:00 Intake Total 200 ml Balance 200 ml Height & Weight Height: 5'2.00" Weight: 190lbs. oz. 86.131891gx; 36.92 BMI Method:Stated General Appearance: No Apparent Distress, WD/WN, Mild Distress HEENT: PERRL/EOMI, Pharynx Normal, TM Abnormal (L) (Bulging without redness or opacity), Other (Right TM normal) Neck: Non Tender, Supple Respiratory: Chest Non Tender, Lungs Clear, Normal Breath Sounds, No Accessory Muscle Use, No Respiratory Distress, Crackles (Left base) Cardiovascular: Regular Rate, Rhythm, No Murmur Capillary Refill: Less Than 3 Seconds Extremity: Normal Range of Motion, Non Tender, No Calf Tenderness, No Pedal Edema Neurologic/Psychiatric: Alert, Oriented x3 Skin: Normal Color, Warm/Dry Results Lab Laboratory Tests 11/01/20 18:55 11/01/20 19:00 11/02/20 05:42 Assessment/Plan Assessment/Plan A/P 1. COVID 19 -pt has post COVID 19 dyspnea with exertion -advice VQ scan/ duplex of lower ext/ echo in order to ro cardiomyopathy/ COVID related VTE Pt was visualized via iPad/ examined via EKO dw bed side RN and dr. Márquez all questions were answered RAYHSAWN OBANDO MD Nov 02, 2020 10:07
[2020-11-02] MEDS ORDERED: ONDANSETRON 4 MG/2 ML (SDV) Z0FRAN IVP PRN (10:15)
[2020-11-02] MEDS ORDERED: CALCIUM CARBONATE 500 MG (TUMS) TAB.CHEW PO PRN (10:15)
[2020-11-02] MEDS ORDERED: diphenhydrAMINE 25 MG TAB (BENADRYL) PO PRN (10:15)
[2020-11-02] MEDS ORDERED: ALPRAZolam 0.25 MG (XANAX) TAB PO PRN (10:15)
[2020-11-02] MEDS ORDERED: ACETAMINOPHEN 500 MG TAB (TYLENOL) PO PRN (10:15)
[2020-11-02] MEDS ORDERED: LOPERAMIDE 2 MG (IMODIUM) TABLET PO PRN (10:15)
[2020-11-02] MEDS ORDERED: DOCUSATE SODIUM 100 MG (COLACE) CAP PO PRN (10:15)
[2020-11-02] MEDS ORDERED: HYDROcodone/APAP 5 MG/325 MG (LORTAB) TAB PO PRN (10:15)
[2020-11-02] MEDS ORDERED: MELATONIN 3 MG TABLET PO PRN (10:15)
[2020-11-02] MEDS ORDERED: ACETAMINOPHEN 325 MG TABLET PO PRN (10:45)
[2020-11-02 12:00] VITALS: BP 111/71
--- NOTE | 2020-11-02 12:16 | Consultation-Cardiology ---
HPI-Cardiology Cardiology Consultation: Date of Consultation 11/02/20 Time Seen by a Provider: 11:50 Date of Admission 11-01-20 Attending Physician Jessica Johnson DO Admitting Physician Devika,Local Physician Consulting Physician Calvin Cunningham MD HPI: Chief Complaint: MICHAELS Ms. Mansfield is a 55 yr old female admitted to [facility] from the ED with c/o SOB. She states she had COVID with sepsis in August 2020. She reports following COVID recovery she has required home oxygen at 1.5 - 2L/NC. She states she went to the ED in [facility] yesterday d/t dizziness and sinus congestion. She reports the ED provider told her that her lungs did not sound good so they came here to be evaluated. She states she was told her "blood was thickening up" so she was admitted to r/o blood clots. She denies any c/o CP. She reports chronic SOB since COVID, but feels it has been somewhat better during the day as she has been weaning her oxygen down. She reports chronic palpitations for which she has been on propranolol for "years". She reports recent occ episodes of palpitations with exertion, reporting HR in the 140's, that resolves on its own with rest. She states she is awaiting a home sleep study. No c/o n/v/d. No c/o fever or chills. No c/o LE swelling. Review of Systems-Cardiology Review of Systems Constitutional: No chills, No fever; lightheadedness, malaise Eyes: No vision change Ears/Nose/Throat: No epistaxis, No nasal drainage, No recent hearing loss Respiratory: As described under HPI Cardiovascular: As described under HPI Gastrointestinal: No constipation, No diarrhea, No nausea, No vomiting Genitourinary: No dysuria, No hematuria Musculoskeletal: no symptoms reported Skin: No rash on exposed areas, No ulcerations on exposed areas Psychiatric/Neurological: anxiety; No depression, No seizure, No focal weakness, No syncope Hematologic: No bleeding abnormalities All Other Systems Reviewed Negative Unless Noted: Yes EKC-Nuduvj-Bfkrse Hx Patient Social History Employed/Student: employed, unemployed Smoking Status: Never a Smoker 2nd Hand Smoke Exposure: No Have you traveled recently?: No Alcohol Use?: No Pt feels they are or have been: No Past Medical History PMH As described under Assessment. Family Medical History Family Medical History: She reports her father and mother had CAD Allergies and Home Medications Allergies Coded Allergies: Penicillins (Verified Allergy, Severe, anaphylaxis, 09/25/18) Sulfa (Sulfonamide Antibiotics) (Verified Allergy, Severe, anaphylaxis, 09/25/18) amoxicillin (Verified Allergy, Severe, FACIAL SWELLING, 08/08/20) clavulanic acid (Verified Allergy, Severe, FACIAL SWELLING, 08/08/20) iodine (Verified Allergy, Severe, anaphylaxis, 09/25/18) Latex, Natural Rubber (Unverified Allergy, Intermediate, Rash, 08/11/20) PT STATES LATEX MAKES HER SKIN RAW levofloxacin (Verified Allergy, Mild, hives, 09/25/18) meperidine (Verified Allergy, Mild, hives, 09/25/18) methylprednisolone (Verified Allergy, Unknown, 09/25/18) povidone-iodine (Verified Allergy, Unknown, 09/25/18) soap (Verified Allergy, Unknown, 09/25/18) Uncoded Allergies: TAPE (Adverse Reaction, Unknown, 09/25/18) Home Medications Alprazolam 1 Mg Tablet, 0.5 MG PO 0800,1500, (Reported) TAKES (1MG) TABLET Last Action: Reviewed Ascorbate Calcium 500 Mg Tablet, 500 MG PO DAILY, (Reported) Last Action: Reviewed Aspirin 81 Mg Tablet.dr, 81 MG PO DAILY Prescribed by: JESSICA JOHNSON on 11/02/201855 Azithromycin 250 Mg Tablet, 250 MG PO HS Prescribed by: JESSICA JOHNSON on 11/02/201855 Cholecalciferol (Vitamin D3) 125 Mcg Tablet, 125 MCG PO DAILY, (Reported) Last Action: Reviewed Fluticasone Propionate 16 Gm [place].susp, 1-2 SPRAY NSEACH DAILY, (Reported) Last Action: Reviewed Ibuprofen 200 Mg Tablet, 600 MG PO Q6H PRN for PAIN-MILD (1-4), (Reported) TAKES 3 (200MG) TABLETS Last Action: Reviewed Levothyroxine Sodium 75 Mcg Tablet, 37.5 MCG PO DAILY, (Reported) TAKES (75MCG) TABLET Last Action: Reviewed Loratadine 10 Mg Tablet, 10 MG PO DAILY, (Reported) Last Action: Reviewed Propranolol HCl 10 Mg Tablet, 10 MG PO BID, (Reported) Last Action: Reviewed Patient Home Medication List Home Medication List Reviewed: Yes Physical Exam-Cardiology Physical Exam Vital Signs/I&O 11/03/20 00:00 Intake Total 1260 ml Balance 1260 ml Capillary Refill : Less Than 3 Seconds Constitutional: AAO x 3, well-developed, well-nourished HEENT: PERRL, hearing is well preserved, oral hygience is good Neck: No carotid bruit; carotid pulses are 2 + bilaterally Respiratory: No accessory muscle use, No respiratory distress; chest expansion is symmetric, chest is bilaterally symmetric, lungs clear to auscultation Cardiovascular: regular rate-rhythm; No JVD; S1 and S2 Gastrointestinal: No tender; soft, round, audible bowel sounds Extremities: no lower extremity edema bilateral Neurologic/Psychiatric: grossly intact (moves all extremities) Skin: No rash on exposed areas, No ulcerations on exposed areas Data Review Labs Radiology NAME: JUD MANSFIELD I [facility] REC#: [id number] PT STATUS: ADM Cristina : 1965 PHYSICIAN: MIKAELA MARTIN MD ADMIT DATE: 11/01/20 Signed Date of Exam:11/01/20 CHEST PA/LAT (2 VIEW) INDICATION: Three months post COVID. Dizziness and fatigue. EXAMINATION: Two-view chest from 11/01/2020. COMPARISON: 10/29/2020. FINDINGS: The cardiomediastinal silhouette is unremarkable. The pulmonary vasculature is within normal limits. The lungs and pleural spaces are clear. IMPRESSION: No evidence of an acute cardiopulmonary process. Dictated by: Dictated on workstation # [id number] Dict: 11/01/201930 Trans: 11/01/202229 [id number] Interpreted by: LEATHA SALAZAR MD Electronically signed by: LEATHA SALAZAR MD 11/01/202229 A/P-Cardiology Assessment/Admission Diagnosis MICHAELS following COVID infection in August 2020 for which she has required supplemental oxygen at home Post COVID (August 2020) AST/ALT elevation of undetermined etiology Reports history of sinus tachycardia for which she has been on Propranolol for greater than 10 yrs Hypothyroidism - replacement tx H/O cholecystectomy H/O kidney stones in the past Family h/o CAD (mother, father) Discussion and Recomendations MICHAELS requiring supplement oxygen post COVID recovery Echocardiogram to eval structure and function EKG VQ lung scan per pulmonary/medical services Liver enzyme elevation of undetermined etiology - management per medical services Monitor lab Replace electrolytes as indicated Further recs will be based on her hospital course We would like to thank Dr. Johnson for this consult BRITTNY MCKEON Nov 02, 2020 12:16
[2020-11-02 16:00] VITALS: BP 115/72
--- NOTE | 2020-11-02 17:49 | Diagnostic Imaging Report ---
INDICATION: Shortness of air, elevated d-dimer. COMPARISON: Two-view chest of 11/01/2020. TECHNIQUE: Perfusion only imaging of the lungs was performed after the intravenous administration of 5.48 mCi of technetium 99m MAA. FINDINGS: There is homogeneous perfusion of both lungs. No defects are noted within the periphery to indicate pulmonary emboli. IMPRESSION: Normal perfusion scan. No evidence of pulmonary emboli. Dictated by: Dictated on workstation # [id number]
[2020-11-02] MEDS ORDERED: AZIT250T12 PO (18:56)
[2020-11-02] MEDS ORDERED: ASPI-1238 PO (18:56)
--- NOTE | 2020-11-02 19:16 | Consultation-Cardiology ---
HPI-Cardiology Cardiology Consultation: Date of Consultation 11/02/20 Time Seen by a Provider: 18:30 Date of Admission Attending Physician Jessica Johnson DO Admitting Physician Devika,Local Physician Consulting Physician AGATA MENSAH MD, MA, FACP, FACC, FSCAI, CCDS HPI: Chief Complaint: MICHAELS Ms. Tobias is a 55 yr old female admitted to [facility] from the ED with c/o SOB. She states she had COVID with sepsis in August 2020. She reports following COVID recovery she has required home oxygen at 1.5 - 2L/NC. She states she went to the ED in [facility] yesterday d/t dizziness and sinus congestion. She reports the ED provider told her that her lungs did not sound good so they came here to be evaluated. She states she was told her "blood was thickening up" so she was admitted to r/o blood clots. She denies any c/o CP. She reports chronic SOB since COVID, but feels it has been somewhat better during the day as she has been weaning her oxygen down. She reports chronic palpitations for which she has been on propranolol for "years". She reports recent occ episodes of palpitations with exertion, reporting HR in the 140's, that resolves on its own with rest. She states she is awaiting a home sleep study. No c/o n/v/d. No c/o fever or chills. No c/o LE swelling. Review of Systems-Cardiology Review of Systems Constitutional: No chills, No fever; lightheadedness, malaise Eyes: No vision change Ears/Nose/Throat: No epistaxis, No nasal drainage, No recent hearing loss Respiratory: As described under HPI Cardiovascular: As described under HPI Gastrointestinal: No constipation, No diarrhea, No nausea, No vomiting Genitourinary: No dysuria, No hematuria Musculoskeletal: no symptoms reported Skin: No rash on exposed areas, No ulcerations on exposed areas Psychiatric/Neurological: anxiety; No depression, No seizure, No focal weakness, No syncope Hematologic: No bleeding abnormalities All Other Systems Reviewed Negative Unless Noted: Yes FXC-Hxeuyy-Snazoc Hx Patient Social History Employed/Student: employed, unemployed Smoking Status: Never a Smoker 2nd Hand Smoke Exposure: No Have you traveled recently?: No Alcohol Use?: No Pt feels they are or have been: No Past Medical History PMH As described under Assessment. Family Medical History Family Medical History: She reports her father and mother had CAD Allergies and Home Medications Allergies Coded Allergies: Penicillins (Verified Allergy, Severe, anaphylaxis, 09/25/18) Sulfa (Sulfonamide Antibiotics) (Verified Allergy, Severe, anaphylaxis, 09/25/18) amoxicillin (Verified Allergy, Severe, FACIAL SWELLING, 08/08/20) clavulanic acid (Verified Allergy, Severe, FACIAL SWELLING, 08/08/20) iodine (Verified Allergy, Severe, anaphylaxis, 09/25/18) Latex, Natural Rubber (Unverified Allergy, Intermediate, Rash, 08/11/20) PT STATES LATEX MAKES HER SKIN RAW levofloxacin (Verified Allergy, Mild, hives, 09/25/18) meperidine (Verified Allergy, Mild, hives, 09/25/18) methylprednisolone (Verified Allergy, Unknown, 09/25/18) povidone-iodine (Verified Allergy, Unknown, 09/25/18) soap (Verified Allergy, Unknown, 09/25/18) Uncoded Allergies: TAPE (Adverse Reaction, Unknown, 09/25/18) Home Medications Alprazolam 1 Mg Tablet, 0.5 MG PO 0800,1500, (Reported) TAKES (1MG) TABLET Last Action: Reviewed Ascorbate Calcium 500 Mg Tablet, 500 MG PO DAILY, (Reported) Last Action: Reviewed Aspirin 81 Mg Tablet.dr, 81 MG PO DAILY Prescribed by: JESSICA JOHNSON on 11/02/201855 Azithromycin 250 Mg Tablet, 250 MG PO HS Prescribed by: JESSICA JOHNSON on 11/02/201855 Cholecalciferol (Vitamin D3) 125 Mcg Tablet, 125 MCG PO DAILY, (Reported) Last Action: Reviewed Fluticasone Propionate 16 Gm [place].susp, 1-2 SPRAY NSEACH DAILY, (Reported) Last Action: Reviewed Ibuprofen 200 Mg Tablet, 600 MG PO Q6H PRN for PAIN-MILD (1-4), (Reported) TAKES 3 (200MG) TABLETS Last Action: Reviewed Levothyroxine Sodium 75 Mcg Tablet, 37.5 MCG PO DAILY, (Reported) TAKES (75MCG) TABLET Last Action: Reviewed Loratadine 10 Mg Tablet, 10 MG PO DAILY, (Reported) Last Action: Reviewed Propranolol HCl 10 Mg Tablet, 10 MG PO BID, (Reported) Last Action: Reviewed Patient Home Medication List Home Medication List Reviewed: Yes Physical Exam-Cardiology Physical Exam Vital Signs/I&O 11/02/20 11/02/20 11/02/20 11/02/20 08:00 08:00 12:00 16:00 Temp 36.0 36.0 36.8 Pulse 77 85 85 Resp 18 20 18 B/P (MAP) 115/74 (88) 111/71 (84) 115/72 (86) Pulse Ox 97 97 92 97 O2 Delivery Nasal Cannula Room Air Room Air Nasal Cannula O2 Flow Rate 2.00 2.00 2.00 2.00 11/02/20 17:14 Pulse Ox 97 O2 Delivery Nasal Cannula O2 Flow Rate 2.00 Capillary Refill : Less Than 3 Seconds Constitutional: AAO x 3, well-developed, well-nourished HEENT: PERRL, hearing is well preserved, oral hygience is good Neck: No carotid bruit; carotid pulses are 2 + bilaterally Respiratory: No accessory muscle use, No respiratory distress; chest expansion is symmetric, chest is bilaterally symmetric, lungs clear to auscultation Cardiovascular: regular rate-rhythm; No JVD; S1 and S2 Gastrointestinal: No tender; soft, round, audible bowel sounds Extremities: no lower extremity edema bilateral Neurologic/Psychiatric: grossly intact (moves all extremities) Skin: No rash on exposed areas, No ulcerations on exposed areas Data Review Labs Laboratory Tests 11/02/20 05:42: White Blood Count 8.4, Red Blood Count 4.34, Hemoglobin 13.5, Hematocrit 42, Mean Corpuscular Volume 96, Mean Corpuscular Hemoglobin 31, Mean Corpuscular Hemoglobin Concent 33, Red Cell Distribution Width 12.6, Platelet Count 185, Mean Platelet Volume 11.3, Immature Granulocyte % (Auto) 0, Neutrophils (%) (Au to) 51, Lymphocytes (%) (Auto) 33, Monocytes (%) (Auto) 8, Eosinophils (%) (Auto) 7, Basophils (%) (Auto) 1, Neutrophils # (Auto) 4.3, Lymphocytes # (Auto) 2.7, Monocytes # (Auto) 0.7, Eosinophils # (Auto) 0.6H, Basophils # (Auto) 0.0, Immature Granulocyte # (Auto) 0.0, Sodium Level 140, Potassium Level 4.1, Chloride Level 104, Carbon Dioxide Level 26, Anion Gap 10, Blood Urea Nitrogen 9, Creatinine 0.75, Estimat Glomerular Filtration Rate > 60, BUN/Creatinine Ratio 12, Glucose Level 105, Calcium Level 9.2, Corrected Calcium 9.5, Total Bilirubin 0.5, Aspartate Amino Transf (AST/SGOT) 52H, Alanine Aminotransferase (ALT/SGPT) 78H, Alkaline Phosphatase 112, Total Protein 7.0, Albumin 3.6, Procalcitonin 0.27H A/P-Cardiology Assessment/Admission Diagnosis MICHAELS following COVID infection in August 2020, mild, etiology undetermined - Echo of 11/02/20: LVEF 60-65%, no significant abnormality seen AST/ALT elevation of undetermined etiology History of "sinus tachycardia" for which she has been on Propranolol for greater than 10 yrs Hypothyroidism - replacement tx H/O cholecystectomy H/O kidney stones in the past Family h/o CAD (mother, father) Discussion and Recomendations Cardiac status appears clinically stable Liver enzyme elevation of undetermined etiology - management by Dr Johnson Monitor lab Replace electrolytes as indicated AGATA MENSAH MD FACP FAC CCDS Nov 02, 2020 19:16
[2020-11-02 19:37] VITALS: BP 115/72
[2020-11-02] MEDS ORDERED: SENNA W/DOCUSATE (SENOKOT S) TABLET PO SCH (21:00)
[2020-11-02] MEDS ORDERED: AZITHROMYCIN 250 MG TAB (ZITHROMAX) PO SCH (21:00)
== END 2020-11-02 18:55 | disposition home or self-care (01) ==
LOC: EDUNIT# 18:27 → ER 18:29 → UNDOADMOB 20:59 → 4TH 20:59 → UNDODISOB 11-02 19:37
PROVIDERS: ADMIT Internal Medicine; ATTEND Internal Medicine
DX: R06.00 Dyspnea, unspecified (principal); H66.92 Otitis media, unspecified, left ear; J18.9 Pneumonia, unspecified organism; B94.8 Sequelae of other specified infectious and parasitic diseases; E03.9 Hypothyroidism, unspecified; R42 Dizziness and giddiness; R79.1 Abnormal coagulation profile; N20.0 Calculus of kidney; J32.9 Chronic sinusitis, unspecified; G47.00 Insomnia, unspecified; G93.3 Postviral and related fatigue syndromes; M79.7 Fibromyalgia; F41.9 Anxiety disorder, unspecified; Z79.899 Other long term (current) drug therapy; Z79.82 Long term (current) use of aspirin; Z79.890 Hormone replacement therapy
CPT/HCPCS: 71046; 78580; 80053 ×2; 84145 ×2; 85025 ×2; 85379; 85610; 85730; 86141; 93005; 93306; 93970; 94760; 96372; 99284; A9540; G0378; 36415

== ENCOUNTER → 2021-10-05 | Outpatient (CLI) | payer BC ==
[~2021-10-05] MED LIST changes: +AZIT250T12 PO; -DOXY100C2 PO; +DOXY100C5 PO
--- NOTE | 2021-10-05 14:52 | Diagnostic Imaging Report ---
INDICATION: Productive cough. Comparison is made with prior exam of 11/01/2020. FINDINGS: The heart size, mediastinal configuration, and pulmonary vascularity are within normal limits. There is no pleural effusion, pneumothorax, or pneumonia. The osseous structures are unremarkable. IMPRESSION: No acute cardiopulmonary abnormality. Dictated by: Dictated on workstation # [id number]
== END ==
LOC: RAD FS 14:33
PROVIDERS: ATTEND Nurse Practitioner Family
DX: R06.02 Shortness of breath (principal); R05.8 Other specified cough
CPT/HCPCS: 71046

== ENCOUNTER 2021-10-25 10:12 | Emergency (ER) | payer BC ==
[~2021-10-25] VITALS: Ht 154 cm; Wt 93.0 kg
[2021-10-25] MEDS ORDERED: BENZ100C18 PO (11:55)
--- NOTE | 2021-10-25 11:55 | ED General ---
General Chief Complaint: COVID19 Suspect/Confirmed Stated Complaint: COVID + 10/23 - FEVER 102 - DEHYDRATION Nursing Triage Note: ARRIVED VIA AMB TO ROOM 10. STATES SHE TESTED POSITIVE FOR COVID ON SUNDAY AND IS HAVING A HEADACHE, SORE THROAT, COUGH, AND OFF AND ON FEVER. PT TOOK ADVIL AT 0715 TODAY. PT WAS VERY SICK WITH COVID ONCE BEFORE AND WANTS TO MAKE SURE IT HAS NOT MOVED INTO HER LUNGS. Allergies and Home Medications Allergies Coded Allergies: Penicillins (Verified Allergy, Severe, anaphylaxis, 09/25/18) Sulfa (Sulfonamide Antibiotics) (Verified Allergy, Severe, anaphylaxis, 09/25/18) amoxicillin (Verified Allergy, Severe, FACIAL SWELLING, 08/08/20) clavulanic acid (Verified Allergy, Severe, FACIAL SWELLING, 08/08/20) iodine (Verified Allergy, Severe, anaphylaxis, 09/25/18) Latex, Natural Rubber (Unverified Allergy, Intermediate, Rash, 08/11/20) PT STATES LATEX MAKES HER SKIN RAW levofloxacin (Verified Allergy, Mild, hives, 09/25/18) meperidine (Verified Allergy, Mild, hives, 09/25/18) methylprednisolone (Verified Allergy, Unknown, 09/25/18) povidone-iodine (Verified Allergy, Unknown, 09/25/18) soap (Verified Allergy, Unknown, 09/25/18) Uncoded Allergies: TAPE (Adverse Reaction, Unknown, 09/25/18) Patient Home Medication List Alprazolam (Alprazolam) 1 Mg Tablet, 0.5 MG PO 0800,1500, (Reported) Entered as Reported by: TANYA PIMENTEL on 08/09/20 105 Ascorbate Calcium (Vitamin C) 500 Mg Tablet, 500 MG PO DAILY, (Reported) Entered as Reported by: TANYA PIMENTEL on 08/09/20 105 Aspirin (Aspirin EC) 81 Mg Tablet.dr, 81 MG PO DAILY Prescribed by: JEB JOHNSON on 11/02/201855 Azithromycin (Azithromycin) 250 Mg Tablet, 250 MG PO HS Prescribed by: JEB JOHNSON on 11/02/201855 Cholecalciferol (Vitamin D3) (Vitamin D3) 125 Mcg Tablet, 125 MCG PO DAILY, (Reported) Entered as Reported by: TANYA PIMENTEL on 08/09/20 105 Fluticasone Propionate (Fluticasone Propionate) 16 Gm [place].susp, 1-2 SPRAY NSEACH DAILY, (Reported) Entered as Reported by: JESUS MANUEL LAAR on 08/08/20 1604 Ibuprofen (Ibuprofen) 200 Mg Tablet, 600 MG PO Q6H PRN for PAIN-MILD (1-4), (Reported) Entered as Reported by: TANYA PIMENTEL on 08/09/20 1052 Levothyroxine Sodium (Levothyroxine Sodium) 75 Mcg Tablet, 37.5 MCG PO DAILY, (Reported) Entered as Reported by: TANYA PIMENTEL on 08/09/20 1052 Loratadine (Claritin) 10 Mg Tablet, 10 MG PO DAILY, (Reported) Entered as Reported by: TANYA PIMENTEL on 08/09/20 1052 Propranolol HCl (Propranolol HCl) 10 Mg Tablet, 10 MG PO BID, (Reported) Entered as Reported by: ABIMBOLA TINSLEY on 11/02/20 0906 Past Yizgbtl-Crksvt-Ksvdqn Hx Patient Social History Tobacco Use?: No Substance use?: No Seasonal Allergies Seasonal Allergies: No Past Medical History Surgeries: Yes ("kidney stone") Gallbladder, Lumpectomy Respiratory: Yes (BRONCHITIS) Pneumonia Cardiac: Yes ("sinus tachacardia rate in 200s) Genitourinary: Yes Kidney Stones Gastrointestinal: No Musculoskeletal: Yes Fibromyalgia Endocrine: Yes Hypothyroidsim HEENT: No Cancer: No Psychosocial: Yes Anxiety Integumentary: No Blood Disorders: No Family Medical History No Pertinent Family Hx HTN Physical Exam Vital Signs Vital Signs - First Documented 10/25/21 10:20 Temp 36.0 Pulse 104 Resp 16 B/P (MAP) 158/91 (113) Pulse Ox 95 O2 Delivery Room Air Capillary Refill : Less Than 3 Seconds Height, Weight, BMI Height: 5'2.00" Weight: 190lbs. oz. 86.219223lp; 39.00 BMI Method:Stated Progress/Results/Core Measures Suspected Sepsis SIRS Temperature: Pulse: 104 Respiratory Rate: 16 Blood Pressure 158 /91 Mean: 113 Results/Orders My Orders Orders - ALEX WILKERSON MD Rx-Nirmatrelvir/Ritonavir(Eua) (Rx-Paxlo (10/25/21 21:00) Vital Signs/I&O 6/21/22 10:20 Temp 36.0 Pulse 104 Resp 16 B/P (MAP) 158/91 (113) Pulse Ox 95 O2 Delivery Room Air Capillary Refill : Less Than 3 Seconds Blood Pressure Mean: 113 Departure Impression Primary Impression: COVID-19 virus infection Disposition: 01 HOME, SELF-CARE Condition: Stable Departure-Patient Inst. Decision time for Depature: 11:49 Referrals: [facility] (PCP) Primary Care Physician ANTOINETTE MESSINA APRN (Family) Primary Care Physician Patient Instructions: COVID-19 Overview, Nirmatrelvir and Ritonavir FDA Fact Sheet Add. Discharge Instructions: Continue to drink plenty of clear liquids to stay well-hydrated. Take Paxlovid (nirmatrelvir and ritonavir) as directed. If you are concerned about your liver function given your history of prior elevated liver enzymes, contact your primary care provider to discuss possibly checking liver markers again after you finish therapy. Also discuss future COVID vaccination with your primary care provider. If you experience any sedation with your alprazolam, Paxlovid may increase that effect. Consider reducing your dose of alprazolam (may be cut in half) while on Paxlovid. You may continue your other medications as prescribed. Additionally, you may wish to take a multivitamin to ensure you are getting adequate supplementation with appropriate vitamins and minerals. Check your oxygen saturation a couple of times a day and at times you feel more short of breath. Return to the ER if you are obtaining multiple oxygen saturations less than 92% or any oxygen saturation less than 90%. Remain somewhat active and walk about the house often. Change positions often when you are in bed. Avoid being sedentary for prolonged periods of time. You may use Tessalon Perles as prescribed as a cough suppressant. Use ibuprofen up to 600 mg every 6 hours and/or Tylenol (acetaminophen) up to 1000 mg every 6 hours as needed for fevers and body aches. You may call Dr. Wilkerson on Sunday, Sunday, or this week 6 AM to 6 PM if you have questions or concerns. Return to the ER if you have worsening symptoms despite following these instructions. All discharge instructions reviewed with patient and/or family. Voiced understanding. Scripts Benzonatate (TESSALON PERLES) 100 Mg Capsule 200 MG PO TID PRN for COUGH, #20 CAP Prov: ALEX WILKERSON MD 10/25/21 ALEX WILKERSON MD Oct 25, 2021 11:55
[2021-10-25] MEDS ORDERED: RX-NIRMATRELVIR/RITONAVIR (PAXLOVID) #30 TABS PO ONE (12:06)
[2021-10-25 12:13] VITALS: BP 127/74
[2021-10-25] MEDS ORDERED: RX-NIRMATRELVIR/RITONAVIR (PAXLOVID) #30 TABS PO SCH (21:00)
== END 2021-10-25 12:12 | disposition home or self-care (01) ==
LOC: EDUNIT# 10:12 → ER 10:15
DX: U07.1 COVID-19 (principal); Z73.0 Burn-out; Z28.310 Unvaccinated for COVID-19
CPT/HCPCS: 99281

== ENCOUNTER → 2022-07-14 | Outpatient (CLI) | payer BC ==
[~2022-07-14] MED LIST changes: +BENZ100C18 PO
--- NOTE | 2022-07-14 16:37 | Diagnostic Imaging Report ---
INDICATION: Recurrent UTI. COMPARISON: None. FINDINGS: Single supine radiographic view of the abdomen was obtained and demonstrates nondistended loops of small bowel. There is no large collection of free peritoneal air. Mild air and stool are seen scattered throughout the colon. No unexpected extraosseous calcification or radiopaque foreign body is seen. Bony structures show no gross acute abnormality. IMPRESSION: Nonobstructed small bowel gas pattern. Dictated by: Dictated on workstation # [id number]
== END ==
LOC: RAD FS 11:10
PROVIDERS: ATTEND Urology
DX: N39.0 Urinary tract infection, site not specified (principal)
CPT/HCPCS: 74018

== ENCOUNTER 2022-09-06 20:00 | Emergency (ER) | payer BC ==
[~2022-09-06] VITALS: Ht 157.5 cm; Wt 94.8 kg
[2022-09-06] MEDS ORDERED: LEVA0.6334 (20:17)
--- NOTE | 2022-09-06 21:05 | ED Cough/URI ---
General Chief Complaint: Cough/Cold/Flu Symptoms Stated Complaint: COUGHING|LOW 02 Nursing Triage Note: COUGH, CHEST WALL PAIN WITH COUGH X1 DAY. DX WITH BRONCHITIS AT URGENT CARE TODAY. REPORTS SPO2 DROPPING TO 90% AT HOME. Source: patient Exam Limitations: no limitations History of Present Illness Date Seen by Provider: September 06, 2022 Time Seen by Provider: 21:01 Initial Comments Patient is a 57-year-old female presents ED with sore throat, chills, fever, chest congestion. Started 24 hours ago with scratchy throat. Then symptoms started into her lungs with a cough and shortness of breath. Her oxygen at home has got as low as 90%. She does not wear oxygen at home. 2 years ago diagnosed with COVID resulted in respiratory failure, arts, bacterial pneumonia. She was admitted for several days discharged for respiratory therapy. She states symptoms appear to be improving since COVID however when she gets an upper respiratory infection tends to cause worsening symptoms such as shortness of breath. She noted some wheezing. Went to urgent care this morning received 2 breathing treatments with some improvement. She was sitting at home her oxygen dropped into the lower 90s. Was having difficulty breathing. She denies chest pain, Cristi pain, vomiting, diarrhea, headache, dizziness. She had vomiting diarrhea last week which improved. 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 Allergies and Home Medications Allergies Coded Allergies: Penicillins (Verified Allergy, Severe, anaphylaxis, 09/25/18) Sulfa (Sulfonamide Antibiotics) (Verified Allergy, Severe, anaphylaxis, 09/25/18) amoxicillin (Verified Allergy, Severe, FACIAL SWELLING, 08/08/20) clavulanic acid (Verified Allergy, Severe, FACIAL SWELLING, 08/08/20) iodine (Verified Allergy, Severe, anaphylaxis, 09/25/18) Latex, Natural Rubber (Unverified Allergy, Intermediate, Rash, 08/11/20) PT STATES LATEX MAKES HER SKIN RAW levofloxacin (Verified Allergy, Mild, hives, 09/25/18) meperidine (Verified Allergy, Mild, hives, 09/25/18) methylprednisolone (Verified Allergy, Unknown, 09/25/18) povidone-iodine (Verified Allergy, Unknown, 09/25/18) soap (Verified Allergy, Unknown, 09/25/18) Uncoded Allergies: TAPE (Adverse Reaction, Unknown, 09/25/18) Patient Home Medication List Home Medication List Reviewed: Yes Alprazolam (Alprazolam) 1 Mg Tablet, 0.5 MG PO 0800,1500, (Reported) Entered as Reported by: TANYA PIMENTEL on 08/09/20 105 Aspirin (Aspirin EC) 81 Mg Tablet.dr, 81 MG PO DAILY Prescribed by: JEB JOHNSON on 11/02/201855 Fluticasone Propionate (Fluticasone Propionate) 16 Gm [place].susp, 1-2 SPRAY NSEACH DAILY, (Reported) Entered as Reported by: JESUS MANUEL LARA on 08/08/20 1604 Levalbuterol HCl (Levalbuterol HCl) 0.63 Mg/3 Ml Vial.neb, (Reported) Entered as Reported by: ROMY DOUGLASS on 09/06/222016 Last Action: New Order Levothyroxine Sodium (Levothyroxine Sodium) 75 Mcg Tablet, 37.5 MCG PO DAILY, (Reported) Entered as Reported by: TANYA PIMENTEL on 08/09/20 105 Loratadine (Claritin) 10 Mg Tablet, 10 MG PO DAILY, (Reported) Entered as Reported by: TANYA PIMENTEL on 08/09/201051 Prednisone (Prednisone) 20 Mg Tab, 40 MG PO DAILY Prescribed by: IRVIN GIBSON on 09/06/22 2326 Propranolol HCl (Propranolol HCl) 10 Mg Tablet, 10 MG PO BID, (Reported) Entered as Reported by: ABIMBOLA TINSLEY on 11/02/20 0906 Discontinued Medications Ascorbate Calcium (Vitamin C) 500 Mg Tablet, 500 MG PO DAILY, (Reported) Discontinued Reason: No Longer Taking Entered as Reported by: TANYA PIMENTEL on 08/09/20 1052 Last Action: Discontinued Azithromycin (Azithromycin) 250 Mg Tablet, 250 MG PO HS Discontinued Reason: No Longer Taking Prescribed by: JEB JOHNSON on 11/02/201855 Last Action: Discontinued Benzonatate (Tessalon Perles) 100 Mg Capsule, 200 MG PO TID PRN for COUGH Discontinued Reason: No Longer Taking Prescribed by: ALEX SORIANO on 10/25/21 1155 Last Action: Discontinued Cholecalciferol (Vitamin D3) (Vitamin D3) 125 Mcg Tablet, 125 MCG PO DAILY, (Reported) Discontinued Reason: No Longer Taking Entered as Reported by: TANYA PIMENTEL on 08/09/201051 Last Action: Discontinued Ibuprofen (Ibuprofen) 200 Mg Tablet, 600 MG PO Q6H PRN for PAIN-MILD (1-4), (Reported) Discontinued Reason: No Longer Taking Entered as Reported by: TANYA PIMENTEL on 08/09/201051 Last Action: Discontinued Review of Systems Review of Systems Constitutional: chills, fever, malaise, weakness EENTM: No blurred vision Respiratory: cough, short of breath, wheezing Cardiovascular: No chest pain Gastrointestinal: No abdominal pain, No diarrhea, No nausea, No vomiting Musculoskeletal: No back pain, No joint pain All Other Systems Reviewed Negative Unless Noted: Yes Past Ujormnm-Nvbqnm-Ankpjv Hx Patient Social History Tobacco Use?: No Substance use?: No Alcohol Use?: No Pt feels they are or have been: No Immunizations Up To Date First/Initial COVID19 Vaccinat: NA Seasonal Allergies Seasonal Allergies: No Past Medical History Surgery/Hospitalization HX: HYPOTHRYOIDISM, HTN, ANXIETY, SEASONAL ALLERGIES CHOLECYSTECTOMY, LITHOTRIPSY, BREAST BX Surgeries: Yes ("kidney stone") Gallbladder, Lumpectomy Respiratory: Yes (BRONCHITIS, COVID-19 infection) Pneumonia Cardiac: Yes ("sinus tachacardia rate in 200s) Neurological: No Genitourinary: Yes Kidney Stones Gastrointestinal: No Musculoskeletal: Yes Fibromyalgia Endocrine: Yes Hypothyroidsim HEENT: No Cancer: No Psychosocial: Yes Anxiety Integumentary: No Blood Disorders: No Family Medical History No Pertinent Family Hx HTN Physical Exam Vital Signs - First Documented 09/06/22 20:11 Temp 36.7 Pulse 100 Resp 18 B/P (MAP) 103/55 (71) Pulse Ox 94 O2 Delivery Room Air Capillary Refill : Less Than 3 Seconds Height: 5'2.00" Weight: 190lbs. oz. 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, no motor/sensory deficits, alert, oriented x 3 Skin: normal color, warm/dry Progress/Results/Core Measures Suspected Sepsis SIRS Temperature: Pulse: 100 Respiratory Rate: 18 Laboratory Tests 09/06/22 21:42: White Blood Count 7.6 Blood Pressure 103 /55 Mean: 71 Laboratory Tests 09/06/22 21:42: Creatinine 0.75, Platelet Count 143, Total Bilirubin 0.9 Results/Orders Lab Results Laboratory Tests Test 09/06/22 21:42 Range/Units White Blood Count 7.6 4.3-11.0 10^3/uL Red Blood Count 4.61 3.80-5.11 10^6/uL Hemoglobin 14.6 11.5-16.0 g/dL Hematocrit 43 35-52 % Mean Corpuscular Volume 92 80-99 fL Mean Corpuscular Hemoglobin 32 25-34 pg Mean Corpuscular Hemoglobin Concent 34 32-36 g/dL Red Cell Distribution Width 13.2 10.0-14.5 % Platelet Count 143 130-400 10^3/uL Mean Platelet Volume 10.8 9.0-12.2 fL Immature Granulocyte % (Auto) 0 % Neutrophils (%) (Auto) 57 42-75 % Lymphocytes (%) (Auto) 21 12-44 % Monocytes (%) (Auto) 14 H 0-12 % Eosinophils (%) (Auto) 7 0-10 % Basophils (%) (Auto) 0 0-10 % Neutrophils # (Auto) 4.3 1.8-7.8 10^3/uL Lymphocytes # (Auto) 1.6 1.0-4.0 10^3/uL Monocytes # (Auto) 1.0 0.0-1.0 10^3/uL Eosinophils # (Auto) 0.6 H 0.0-0.3 10^3/uL Basophils # (Auto) 0.0 0.0-0.1 10^3/uL Immature Granulocyte # (Auto) 0.0 0.0-0.1 10^3/uL Percent Immature Platelet Fraction 4.0 0.0-7.6 % Sodium Level 139 135-145 MMOL/L Potassium Level 3.9 3.6-5.0 MMOL/L Chloride Level 107 98-107 MMOL/L Carbon Dioxide Level 21 21-32 MMOL/L Anion Gap 11 5-14 MMOL/L Blood Urea Nitrogen 9 7-18 MG/DL Creatinine 0.75 0.60-1.30 MG/DL Estimat Glomerular Filtration Rate 92 BUN/Creatinine Ratio 12 Glucose Level 70 70-105 MG/DL Calcium Level 9.0 8.5-10.1 MG/DL Corrected Calcium 9.2 8.5-10.1 MG/DL Total Bilirubin 0.9 0.1-1.0 MG/DL Aspartate Amino Transf (AST/SGOT) 54 H 5-34 U/L Alanine Aminotransferase (ALT/SGPT) 52 0-55 U/L Alkaline Phosphatase 104 40-136 U/L Troponin I < 0.028 <0.028 NG/ML B-Type Natriuretic Peptide 15.7 <100.0 PG/ML Total Protein 7.7 6.4-8.2 GM/DL Albumin 3.8 3.2-4.5 GM/DL My Orders Orders - ILANA GALVIN PA Cbc With Automated Diff (09/06/22 21:00) Comprehensive Metabolic Panel (09/06/22 21:00) Bnp Schley (09/06/22 21:00) Troponin I Ariella (09/06/22 21:00) Ekg Tracing (09/06/22 21:00) Chest 1 View, Ap/Pa Only (09/06/22 21:00) Budesonide Inhalation Solution (Pulmicor (09/06/22 22:59) Rx-Albuterol Inhaler (Rx-Ventolin Hfa In (09/06/22 23:30) Medications Given in ED Vital Signs/I&O 09/06/22 09/06/22 09/06/22 20:11 20:30 23:38 Temp 36.7 36.7 Pulse 100 87 Resp 18 16 B/P (MAP) 103/55 (71) 114/72 Pulse Ox 94 95 O2 Delivery Room Air Room Air Room Air Capillary Refill : Less Than 3 Seconds Blood Pressure Mean: 71 Departure Communication (PCP) Reviewed previous ER visits, H&P, admission history, lab testing. History of COVID. In 2020 patient was diagnosed with COVID. She developed ARDS requiring a lengthy admission stay. She required oxygen, albuterol breathing treatments and steroids DURING HER STAY. She states that she went to pulmonary rehab for 6 months after discharge. She states typically her oxygen runs around 96% on room air. She does have a pulse ox at home. She denies history of CHF or coronary artery disease. No history of asthma, COPD. Patient states over the past 24 hours she developed flulike symptoms. Patient Was seen at [facility] today received Xopenex nebulizer treatment twice for wheezing and her chest tightness. She states her symptoms became worse with the wheezing and chest tightness this evening. She states her oxygen dropped as low as 90%. On arrival her oxygen was 94% on room air. She was slightly tachycardic but states she has a history of sinus tachycardia currently on metoprolol. She states she cannot take albuterol or steroids secondary to increased heart rate. She refused albuterol and steroids on arrival. She did have some notable wheezing throughout. Due to current complaint chest x-ray, cardiac work-up was ordered secondary to the chest tightness. Denies of any leg swelling. She does report history of cardiomegaly . EKG did note some ST depression in the lateral leads. I was able to compare to a previous EKG in 2019 that showed similar results. She denies of any specific chest pain however she states her chest feels tight with her cough. She feels like her lungs are "worn out". She did take her Xopenex nebulizer treatment here in the ER. Last dose was over 8 hours ago. CBC, CMP, troponin, BNP grossly unremarkable. Chest x-ray showed cardiomegaly without evidence of pleural effusion, pneumonia, pneumothorax. Patient oxygen fluctuated between 90% and 97% on room air. Walking ambulatory oxygen did not get lower than 93%. Did offer a budesonide nebulizer treatment to try. She states she has received this in the past. She tolerated this well here. After reviewing previous medication that she received in the hospital, she did receive albuterol and did receive Decadron. She is allergic to methylprednisolone. She states she has taken prednisone in the past at a lower dose. I do think a short burst of 40 mg of prednisone would be reasonable to try at home. Did prescribe a rescue inhaler albuterol. Recommend 2 puffs every 4-6 hours for the wheezing. She had a negative COVID and strep today. Suspect reactive airway secondary to upper respiratory infection. Likely viral in nature. No current abdominal pain, chest pain, vomiting or diarrhea. Patient oxygen remained around 95% on room air. Did have a few occasions where it dropped down to 91 to 92%. She did not meet criteria for oxygen. Discussed continue monitoring oxygen at home however if oxygen sustains below 90% on room air for greater then 2 to 3 minutes to return back to ED. Her oxygen will likely fluctuate and this was discuss with her.. Her oxygen level likely fluctuates in the lower 90s secondary to post complications of COVID. Due to reassuring cardiac work-up and reassuring lab work patient will be discharged with strict return precautions. I recommend following up with your PCP in 2 to 3 days for reevaluation. Impression Primary Impression: Upper respiratory infection Disposition: HOME, SELF-CARE Condition: Stable Departure-Patient Inst. Decision time for Depature: 23:23 Referrals: ANTOINETTE MESSINA APRN (PCP) Primary Care Physician [facility] (Family) Primary Care Physician Patient Instructions: Upper Respiratory Infection ED Add. Discharge Instructions: Take 1-2 puffs of the albuterol every 4 hours. Take low-dose steroid. Recommend follow-up your PCP in 2 to 3 days for reevaluation. If any worsening symptoms such as difficulty breathing, shortness of breath return back to ED. All discharge instructions reviewed with patient and/or family. Voiced understanding. Scripts Prednisone (Prednisone) 20 Mg Tab 40 MG PO DAILY for 4 Days, #8 TAB Prov: ILANA GALVIN 09/06/22 ILANA GALVIN September 06, 2022 21:05
[2022-09-06 21:57] LABS: BASOPHILS % (AUTO) 0 % (0-10); LYMPHOCYTES % (AUTO) 21 % (12-44); NEUTROPHILS % (AUTO) 57 % (42-75)
--- NOTE | 2022-09-06 21:58 | Diagnostic Imaging Report ---
CHEST 1 VIEW, AP/PA ONLY INDICATION: cough. COMPARISON: Chest radiograph 08/20/2020. FINDINGS: Lungs: Normal lung volume. No focal consolidation. Pleura: No pleural effusion or pneumothorax. Heart and Mediastinum: Cardiomegaly. Great vessels of the thorax are normal. Osseous Structures and Soft Tissues: No acute osseous abnormality. Normal soft tissues. IMPRESSION: Cardiomegaly. No focal consolidation or albaro pulmonary edema. Dictated by: Dictated on workstation # [id number]
[2022-09-06 21:59] LABS: EOSINOPHILS # (AUTO) 0.6 10^3/uL (0.0-0.3); EOSINOPHILS % (AUTO) 7 % (0-10); HEMATOCRIT 43 % (35-52); HEMOGLOBIN 14.6 g/dL (11.5-16.0); LYMPHOCYTES # (AUTO) 1.6 10^3/uL (1.0-4.0); MEAN CORPUSCULAR HEMOGLOBIN 32 pg (25-34); MEAN CORPUSCULAR HGB CONC 34 g/dL (32-36); MEAN CORPUSCULAR VOLUME 92 fL (80-99); MEAN PLATELET VOLUME 10.8 fL (9.0-12.2); MONOCYTES % (AUTO) 14 % (0-12); NEUTROPHILS # (AUTO) 4.3 10^3/uL (1.8-7.8); PLATELET COUNT 143 10^3/uL (130-400); WHITE BLOOD COUNT 7.6 10^3/uL (4.3-11.0)
[2022-09-06 22:10] LABS: ALBUMIN 3.8 GM/DL (3.2-4.5); CHLORIDE 107 MMOL/L (98-107); POTASSIUM 3.9 MMOL/L (3.6-5.0); SODIUM 139 MMOL/L (135-145)
[2022-09-06 22:12] LABS: GLUCOSE 70 MG/DL (70-105)
[2022-09-06 22:13] LABS: TOTAL PROTEIN 7.7 GM/DL (6.4-8.2)
[2022-09-06 22:14] LABS: CARBON DIOXIDE 21 MMOL/L (21-32)
[2022-09-06 22:15] LABS: BILIRUBIN,TOTAL 0.9 MG/DL (0.1-1.0)
[2022-09-06 22:16] LABS: ALKALINE PHOSPHATASE 104 U/L (40-136); CREATININE SERUM 0.75 MG/DL (0.60-1.30); GFR ESTIMATED 92
[2022-09-06 22:17] LABS: BUN/CREATININE RATIO 12
[2022-09-06 22:19] LABS: ALANINE AMINOTRANSFERASE 52 U/L (0-55)
[2022-09-06] MEDS ORDERED: RT-BUDESONIDE NEBS 0.5 MG/2ML (PULMICORT) AMP ONE (22:59)
[2022-09-06] MEDS ORDERED: PRD20T PO (23:26)
[2022-09-06] MEDS ORDERED: RX-ALBUTEROL INHALER 8.5 GM HFA (PROAIR) IH ONE (23:30)
[2022-09-06 23:38] VITALS: BP 114/72
== END 2022-09-06 23:38 | disposition home or self-care (01) ==
LOC: EDUNIT# 20:00 → ER 20:03
DX: J06.9 Acute upper respiratory infection, unspecified (principal); R00.0 Tachycardia, unspecified; I10 Essential (primary) hypertension; Z88.8 Allergy status to other drugs, medicaments and biological substances; Z86.16 Personal history of COVID-19; Z79.899 Other long term (current) drug therapy; Z28.310 Unvaccinated for COVID-19
CPT/HCPCS: 36415; 71045; 80053; 83880; 84484; 85025; 93005